=== PATIENT | male | born 1950 | race Caucasian/White ===

== ENCOUNTER 2020-02-08 13:33 | Inpatient (IN) ==
[2020-02-08] MEDS ORDERED: ONDANSETRON INJ 2 MG/ML 2 ML VIAL IV STA (13:58)
--- NOTE | 2020-02-08 14:04 | Emergency Department Note ---
Impression & Plan Pelvic pain, Prostate cancer metastatic to bone, Lower back pain, Acute UTI, Anemia, Pedal edema ED Provider Note NAME: MARTÍNEZ WRIGHT AGE: 69 SEX: M : 1950 ARRIVES VIA: Walk-In INFORMANT: [Patient][family] ED PROVIDER(S): [Angel Edwards MD] CHIEF COMPLAINT: Swelling of the lower extremities HISTORY OF PRESENT ILLNESS: The patient is a 69-year-old male that for 1.5 weeks has had increasing swelling of both feet. He has been up on his feet more lately. The patient denies shortness of breath or cough, there has been no congestion. No chest pain. No fever. He denies recent trauma. The patient does have metastatic prostate cancer. He has chronic back pain from the metastasis although, the pain seems to be worsening.. He is on a fentanyl patch and OxyContin. He is currently complaining of moderate to severe back discomfort and is asking for something for pain. Most of his pain is in the area of the left lower back. Patient denies any fever. He is urinating a lot but he states that this is often the case with his prostate issues. Last night he was up several times to urinate. The patient is concerned about fluid overload or even a blood clot. His radiologic technician told him to come to the ED for any leg swelling. REVIEW OF SYSTEMS: See HPI for pertinent positives and negatives. A total of ten systems were reviewed and were otherwise negative. PMHx/PSHx: See Below SOCIAL HISTORY: See Below. PHYSICAL EXAM: GENERAL: Patient is in no acute distress. Holding his left hand in the area of the left lower back. HEENT: No acute trauma, normocephalic atraumatic, mucous membranes moist, no nasal congestion, no scleral icterus. NECK: No stridor, no adenopathy, no meningismus, trachea is midline. LUNGS: Clear to auscultation bilaterally, no wheeze, no rhonchi, breath sounds equal. HEART: Without murmurs gallops or rubs, regular rate and rhythm. ABDOMEN: Soft, nontender, bowel sounds positive, no hernias, no peritonitis. EXTREMITIES: No cyanosis, mild to moderate bilateral pedal edema, full range of motion of all the joints without pain or difficulty, no signs for acute trauma. NEUROLOGIC: Oriented x 3, no acute motor or sensory deficits, no focal weakness. SKIN: No rash, no jaundice, no diaphoresis. Pale. DIFFERENTIAL DIAGNOSIS: Infection, dehydration, metabolic abnormality, hypo/hyperglycemia, fluid overload, renal failure, hydronephrosis, worsening malignancy, DVT, venous insufficiency, thyroid disorder, electrolyte disturbance, anemia, hypoxia, cardiac sources, as well as other pathologies. EMERGENCY DEPARTMENT COURSE/PROCEDURES: ECG: Indication was weakness. ECG shows a normal sinus rhythm with a rate of 84. There are inverted T waves laterally, no ST elevation, no PVCs. There is a potential old inferior infarct. QTC was 413. No old ECGs on the MUSE system for comparison. Continuous Cardiac Monitoring: An order was placed for continuous cardiac monitoring. The monitor shows a rate of 82 with normal sinus rhythm. MEDICAL DECISION MAKING: There is no leukocytosis. The patient does have an anemia, he has a history of the same although, today's hemoglobin is lower than his recent baseline. There is a normal platelet count. No coagulopathy. No renal failure or significant e lectrolyte abnormality. Alk phos is elevated, likely consistent with his bony metastasis. The remaining liver enzymes were unremarkable. The patient appeared to be in a euthyroid state. ECG shows a sinus rhythm, there were some inverted T waves laterally-no old EKGs available for comparison. Cardiac enzyme testing x1 is not consistent with acute cardiac injury. Urinalysis is consistent with infection. Chest film shows some chronic findings, no CHF or pneumonia. Bilateral lower extremity ultrasound does not show any evidence for DVT. Lumbar spine CT shows worsening of his metastatic disease, no fracture. Abdominal and pelvis CT does not show any urinary obstruction. There were some acute on chronic findings seen consistent with his malignancy. A hematoma in the area of the oblique musculature was suggested. Patient was given IV morphine for pain, IV Zofran for nausea. He was given IV ceftriaxone for the UTI. He received IV saline. The patient is in quite a bit of pain. He has a UTI, he has worsening of his metastatic prostate malignancy. He now has pedal edema and anemia. His urinary infection is complicated. I do think a hospital stay is warranted given the findings and circumstances. I spoke to the patient and his family, I talked with the case packer. The on- call hospitalist was consulted. Past Med/Surg History Medical History Abdominal pain, lower Back pain Bone metastases Cardiac arrhythmia Constipation CVA (cerebral vascular accident) x3--last when pt had a heart attack 06/2019--difficulty walking, slight m raúl issues, no blood thinners Depression Diabetes mellitus, type 2 History of kidney stones Hyperlipidemia Hypertension Myocardial Infarction 06/2019--was taken to [facility] in [place] (had a stroke as well), did not have a heart cath/heart surgery--follows with Dr. Iyer at [facility], no blood thinners Prostate cancer 1999--bone metastases---sx/radiation/chemo Surgical History History of colonoscopy History of prostate biopsy malignant History of tooth extraction History of wisdom tooth extraction Hx of prostatectomy S/P cystourethroscopy with dilation of urethral stricture Family History Mother , age 99 old age Diabetes Father , age 78 prostate ca Prostate cancer Brother , liver cancer No problems noted. Brother No problems noted. Brother No problems noted. Brother No problems noted. Sister No problems noted. Sister No problems noted. Sister No problems noted. Son No problems noted. Daughter No problems noted. 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 Feels Safe at Home: Yes Childhood Exposure to Second-Hand Smoke: No Diet Comment: low carbs for diabetes management caffeine: Yes (2 cups per day) during the past year weight has: decreased > 10 lbs Dental Care, Regularly: Yes Physical Activity Frequency: Does not Exercise Seatbelt Use: always Sunscreen Use: Yes Allergies Allergies Allergy/AdvReac Type Severity Reaction Status Date / Time Penicillins Allergy Mild Rash Verified 02/08/20 14:38 Home Meds Home Medications Medication Instructions Recorded Confirmed amiodarone 100 mg PO QAM 11/07/19 02/08/20 metformin 1,000 mg PO QAM 11/07/19 02/08/20 metformin 500 mg PO QPM 11/07/19 02/08/20 omeprazole 20 mg PO QAM 11/07/19 02/08/20 aspirin 81 mg PO QAM 11/08/19 02/08/20 multivitamin with minerals 1 tab PO QAM 11/08/19 02/08/20 leuprolide (3 month) 22.5 mg (3 22.5 mg IM .q3 mo ea 12/02/19 02/08/20 month) intramuscular syringe kit ondansetron HCl 8 mg tablet 8 mg PO Q8H PRN 01/12/20 02/08/20 dexamethasone 2 mg PO DAILY 02/08/20 02/08/20 fentanyl 1 patch TRANSDERMAL Q72H 02/08/20 02/08/20 oxycodone [OxyContin] 30 mg PO Q12H 02/08/20 02/08/20 Previous Rx's Medication Instructions Recorded docusate sodium [Colace] 100 mg PO BID #14 cap 11/18/19 Results & Data (ED) Vital Signs Vital Signs - 24 hr 02/08/20 13:42 02/08/20 13:58 02/08/20 14:32 Temperature 36.6 C Temperature Source Oral Pulse Rate 82 94 H Pulse Rate from SpO2 Sensor 94 H Respiratory Rate 18 Respiratory Effort / Characteristics Non-Labored Spontaneous Respiratory Depth Normal Respiratory Pattern Regular Blood Pressure 110/64 Blood Pressure Mean 79 Blood Pressure Position Sitting Pulse Oximetry 98 98 98 Oxygen Delivery Method Room Air Room Air Sepsis Recent Fever Within 48 Hours No Sepsis New/Unexplained Change in Mental Status N/A Sepsis Action Taken by Nursing No Action Required 02/08/20 15:00 02/08/20 16:14 02/08/20 16:30 Temperature Temperature Source Pulse Rate 99 H Pulse Rate from SpO2 Sensor 99 H 96 H 107 H Respiratory Rate 24 19 23 Respiratory Effort / Characteristics Respiratory Depth Respiratory Pattern Blood Pressure Blood Pressure Mean Blood Pressure Position Pulse Oximetry 99 96 97 Oxygen Delivery Method Sepsis Recent Fever Within 48 Hours Sepsis New/Unexplained Change in Mental Status Sepsis Action Taken by Nursing 02/08/20 16:52 Temperature Temperature Source Pulse Rate 103 H Pulse Rate from SpO2 Sensor 103 H Respiratory Rate 26 H Respiratory Effort / Characteristics Respiratory Depth Respiratory Pattern Blood Pressure 145/84 H Blood Pressure Mean 104 Blood Pressure Position Pulse Oximetry 97 Oxygen Delivery Method Sepsis Recent Fever Within 48 Hours Sepsis New/Unexplained Change in Mental Status Sepsis Action Taken by Usp Medications Current Medication List: was personally reviewed by me Laboratory Data Attestation: I reviewed the patient's lab results. Result diagrams: 02/08/20 14:18 02/08/20 14:18 Lab Results 02/08/20 02/08/20 02/08/20 Range/Units 14:18 14:18 14:18 WBC 6.93 (4.8-10.8) K/uL RBC 3.51 L (4.7-6.1) M/uL Hgb 10.8 L (14.0-18.0) g/dL Hct 32.6 L (42-52) % MCV 92.9 (80-100) fL MCH 30.8 (25-34) pg MCHC 33.1 (32-36) g/dL RDW Std Deviation 47.0 H (36.4-46.3) fL RDW Coeff of Jesus 14.0 (11.5-14.5) % Plt Count 248 (130-400) K/uL MPV 8.6 (7.4-10.4) fL Immature Gran % (Auto) 0.7 % Neut % (Auto) 77.7 % Lymph % (Auto) 13.7 % [place] % (Auto) 6.3 % Eos % (Auto) 1.2 % Baso % (Auto) 0.4 % Neut # (Auto) 5.38 (1.4-6.5) K/uL Lymph # (Auto) 0.95 L (1.2-3.4) K/uL [place] # (Auto) 0.44 (0.11-0.59) K/uL Eos # (Auto) 0.08 (0-0.5) K/uL Baso # (Auto) 0.03 (0-0.2) K/uL Immature Gran # (Auto) 0.05 H (0.00-0.02) K/uL PT 11.4 (9.0-12.0) Seconds INR 1.1 (0.9-1.1) APTT 25.8 (21.0-31.0) Seconds PTT Ratio 0.9 Sodium 136 (136-145) mmol/L Potassium 4.0 (3.5-5.1) mmol/L Chloride 100 (98-107) mmol/L Carbon Dioxide 30 (21-32) mmol/L Anion Gap 6.0 (3-11) BUN 16 (7-18) mg/dl Creatinine 0.69 (0.6-1.4) mg/dl Est Cr Clr Drug Dosing 80.3 ml/min Est GFR ( Amer) 111.5 Est GFR (Non-Af Amer) 96.2 BUN/Creatinine Ratio 23.2 H (10-20) Glucose 150 H (70-99) mg/dl Calcium 8.6 (8.5-10.1) mg/dl Magnesium 2.2 (1.8-2.4) mg/dl Total Bilirubin 0.4 (0.2-1) mg/dl AST 36 (15-37) U/L ALT 27 (12-78) U/L Alkaline Phosphatase 1008 H (45-117) U/L Troponin I < 0.015 (0-0.045) ng/ml Total Protein 6.6 (6.4-8.2) gm/dl Albumin 2.9 L (3.4-5.0) gm/dl Globulin 3.7 (2.5-4.0) gm/dl Albumin/Globulin Ratio 0.8 L (0.9-2) TSH 3.710 (0.300-4.500) uIu/ml Urine Color Urine Appearance (Clear) Urine pH (4.5-7.5) Ur Specific [place] (1.000-1.030) Urine Protein (Negative) Urine Glucose (UA) (Negative) Urine Ketones (Negative) Urine Blood (Negative) Urine Nitrite (Negative) Urine Bilirubin (Negative) Urine Urobilinogen (Negative) Ur Leukocyte Esterase (Negative) Urine RBC (0-4) /hpf Urine WBC (0-5) /hpf Ur Epithelial Cells (0-5) /lpf Urine Bacteria (Negative) 02/08/20 Range/Units 15:10 WBC (4.8-10.8) K/uL RBC (4.7-6.1) M/uL Hgb (14.0-18.0) g/dL Hct (42-52) % MCV (80-100) fL MCH (25-34) pg MCHC (32-36) g/dL RDW Std Deviation (36.4-46.3) fL RDW Coeff of Jesus (11.5-14.5) % Plt Count (130-400) K/uL MPV (7.4-10.4) fL Immature Gran % (Auto) % Neut % (Auto) % Lymph % (Auto) % [place] % (Auto) % Eos % (Auto) % Baso % (Auto) % Neut # (Auto) (1.4-6.5) K/uL Lymph # (Auto) (1.2-3.4) K/uL [place] # (Auto) (0.11-0.59) K/uL Eos # (Auto) (0-0.5) K/uL Baso # (Auto) (0-0.2) K/uL Immature Gran # (Auto) (0.00-0.02) K/uL PT (9.0-12.0) Seconds INR (0.9-1.1) APTT (21.0-31.0) Seconds PTT Ratio Sodium (136-145) mmol/L Potassium (3.5-5.1) mmol/L Chloride (98-107) mmol/L Carbon Dioxide (21-32) mmol/L Anion Gap (3-11) BUN (7-18) mg/dl Creatinine (0.6-1.4) mg/dl Est Cr Clr Drug Dosing ml/min Est GFR ( Amer) Est GFR (Non-Af Amer) BUN/Creatinine Ratio (10-20) Glucose (70-99) mg/dl Calcium (8.5-10.1) mg/dl Magnesium (1.8-2.4) mg/dl Total Bilirubin (0.2-1) mg/dl AST (15-37) U/L ALT (12-78) U/L Alkaline Phosphatase (45-117) U/L Troponin I (0-0.045) ng/ml Total Protein (6.4-8.2) gm/dl Albumin (3.4-5.0) gm/dl Globulin (2.5-4.0) gm/dl Albumin/Globulin Ratio (0.9-2) TSH (0.300-4.500) uIu/ml Urine Color Yellow Urine Appearance Clear (Clear) Urine pH 6.0 (4.5-7.5) Ur Specific [place] 1.010 (1.000-1.030) Urine Protein Negative (Negative) Urine Glucose (UA) Negative (Negative) Urine Ketones Negative (Negative) Urine Blood Negative (Negative) Urine Nitrite Positive A (Negative) Urine Bilirubin Negative (Negative) Urine Urobilinogen Negative (Negative) Ur Leukocyte Esterase 2+ H (Negative) Urine RBC 0-4 (0-4) /hpf Urine WBC >30 H (0-5) /hpf Ur Epithelial Cells 5-10 H (0-5) /lpf Urine Bacteria 3+ H (Negative) Administered Medications Morphine Sulfate (Morphine Sulfate 4 Mg/Ml 1 Ml Carp\Vial) 4 mg IV Q20M PRN PRN Reason: Pain Stop: 02/22/20 13:57 Last Admin: 02/08/20 16:12 Dose: 4 mg Documented by: [id number] Admin: 02/08/20 14:14 Dose: 4 mg Documented by: [id number] Discontinued Medications Ceftriaxone Sodium (Rocephin) 1,000 mg in 50 mls @ 100 mls/hr IV NOW STA Stop: 02/08/20 16:12 Last Infusion: 02/08/20 16:41 Dose: 0 mls/hr Documented by: [id number] Admin: 02/08/20 16:12 Dose: 100 mls/hr Documented by: [id number] Ondansetron HCl (Ondansetron Inj 2 Mg/Ml 2 Ml Vial) 4 mg IV NOW STA Stop: 02/08/20 13:59 Last Admin: 02/08/20 14:14 Dose: 4 mg Documented by: [id number] Imaging Data Radiologist's Impression: BILATERAL LOWER EXTREMITY VENOUS DOPPLER HISTORY: Acute pain and swelling of the bilateral lower extremities swelling COMPARISON STUDY: None. FINDINGS: There is normal compressibility, flow, and augmentation within the bilateral lower extremity deep venous systems. Lower extremity arterial calcifications incidentally noted. IMPRESSION: No DVT within the right or left lower extremity. XR chest 1V portable HISTORY: 69 years-old Male weakness acute weakness COMPARISON: CT abdomen pelvis 11/18/2019 TECHNIQUE: Portable AP view of the chest FINDINGS: Cardiomediastinal and hilar silhouettes are within normal limits. There is no pneumothorax, pleural effusion, airspace consolidation or overt pulmonary edema. Degenerative changes of the shoulders and spine. Scattered sclerotic bone lesions are redemonstrated. IMPRESSION: 1. No acute process of the chest. 2. Sclerotic osseous metastasis redemonstrated. CT lumbar spine wo con HISTORY: 69 years-old Male poss khalif mets acute low back pain with metastatic prostate cancer COMPARISON: CT abdomen and pelvis of same day, CT lumbar spine 11/07/2019 TECHNIQUE: Multiple axial CT images of the lumbar spine were obtained without the use of IV contrast. A dose lowering technique was used consistent with the principals of ALARA. FINDINGS: Extensive sclerotic osseous metastasis redemonstrated which has progressed from the comparison exam. There is diffuse irregular periostitis. No acute pathologic fracture identified. Evaluation of the central canal and neuroforamina is limited by CT technique. No high-grade central canal stenosis. Posterior annular disc bulge L5-S1 results in at least mild left foraminal narrowing. Mild lumbar levoscoliosis. No acute process of the imaged intra-abdominal structures. Multifocal right-sided neuroforaminal narrowing of the sacrum redemonstrated secondary to expansile metastasis. Schmorl's node along the inferior endplate of L1 is unchanged. IMPRESSION: 1. Extensive osteoblastic metastatic disease, progressed from 11/18/2019. 2. No acute pathologic fracture. 3. Multifocal right-sided neuroforaminal narrowing of the sacrum redemonstrated secondary to expansile metastasis. ABDOMEN AND PELVIS CT WITHOUT CONTRAST CT DOSE: 275.74 mGy.cm HISTORY: Acute severe low back pain edema, poss urinary obstruction TECHNIQUE: Multiaxial CT images of the abdomen and pelvis were performed without contrast. A dose lowering technique was utilized adhering to the principles of ALARA. COMPARISON STUDY: CT lumbar spine of same day, CT abdomen and pelvis 11/18/2019 FINDINGS: Clear lung bases. No pneumatosis or pneumoperitoneum. Imaged inferior cardiac chambers are unremarkable. Limited evaluation of the solid abdominal organs without the use of IV contrast. Within the limitations of the exam, the spleen, pancreas, and adrenal glands appear unremarkable. There is an indeterminate 8 mm hypodense lesion of the left hepatic lobe on image 17 series 2. This was not definitively seen on comparison. Distended gallbladder with sludge/probable cholelithiasis. This appears similar to comparison. Nonspecific bilateral perinephric stranding. Prostamegaly. Surgically absent prostate. No ureteral calculi or obstructive uropathy. Calcified plaque the abdominal aorta without aneurysm. There are a few scattered prominent retroperitoneal lymph nodes measuring up to 9 mm. Small hiatal hernia. No bowel obstruction. Moderate fecal retention. Appendix not visualized. Moderate generalized body wall edema. There is asymmetric enlargement with thickening of the left internal oblique muscle measuring up to 9.6 x 1.1 cm. The left external oblique muscle also appears mildly enlarged with surrounding edema. This has progressed from the 11/18/2019 exam. Extensive osteoblastic passes redemonstrated, progressively worsened from comparison. No acute pathologic fracture identified. IMPRESSION: 1. Asymmetric enlargement and heterogeneity of the left internal and external oblique muscles with possible intramuscular hematoma. Correlate with clinical exam findings. 2. Extensive osteoblastic metastatic disease redemonstrated which appears to have progressed from 11/18/2019. No acute pathologic fracture identified. 3. Moderate fecal retention. 4. No bowel obstruction or bowel wall thickening. 5. Distended gallbladder with cholelithiasis. 6. Indeterminate 8 mm hypodense focus of the left hepatic lobe which appears to be new from comparison. Attention at follow-up recommended to exclude hepatic metastasis. 7. Additional findings as above. Blood Pressure Blood Pressure Findings: Elevated blood pressure Blood Pressure Disposition: further management by hospitalist Discharge Plan Visit Data Chief Complaint: Swelling/Edema to Extremity Stated Complaint: LEGS SWELLING ED Provider: Angel Edwards Discharge Problem: Pelvic pain, Prostate cancer metastatic to bone, Lower back pain, Acute UTI, Anemia, Pedal edema Patient Disposition: Admitted As Inpatient Condition: Fair Forms Stand Alone Forms: [facility] [employer] Prescriptions Prescriptions: No Action Lupron [place] (3 month) 22.5 mg syringe kit 22.5 mg IM .q3 mo RF: 0 ondansetron HCl [Zofran] 8 mg tablet 8 mg PO Q8H PRN (Reason: Nausea And Vomiting) RF: 0 docusate sodium [Colace] 100 mg capsule 100 mg PO BID Qty: 14 RF: 0 metformin 500 mg tablet 500 mg PO QPM RF: 0 metformin 500 mg tablet 1,000 mg PO QAM RF: 0 amiodarone 200 mg tablet 100 mg PO QAM RF: 0 omeprazole 20 mg capsule,delayed release(DR/EC) 20 mg PO QAM RF: 0 aspirin 81 mg Tablet,Delayed Release (Dr/Ec) 81 mg PO QAM RF: 0 multivitamin with minerals Tablet 1 tab PO QAM RF: 0 dexamethasone 2 mg Tablet 2 mg PO DAILY RF: 0 fentanyl 75 mcg/hr patch 72 hour 1 patch transdermal Q72H RF: 0 oxycodone [OxyContin] 30 mg Tablet,Oral Only,Ext.Rel.12 Hr 30 mg PO Q12H RF: 0 Referrals Referrals: Roseanne Morris MD [Primary Care Provider] - Discharge Problem: Lower back pain Qualifiers: Chronicity: acute Back pain laterality: left Sciatica presence: without sciatica Qualified Code(s): M54.5 - Low back pain Anemia Qualifiers: Anemia type: unspecified type Qualified Code(s): D64.9 - Anemia, unspecified
[2020-02-08] MEDS: MoRPHine SULFATE 4 MG/ML 1 ML CARP\\VIAL IV PRN ×2 (14:14→16:12)
[2020-02-08 14:31] LABS: Basophils # (auto) 0.03 K/uL (0-0.2); Basophils % (auto) 0.4 %; Eosinophils # (auto) 0.08 K/uL (0-0.5); Eosinophils % (auto) 1.2 %; Hematocrit (blood only) 32.6 % (42-52); Hemoglobin 10.8 g/dL (14.0-18.0); Immature Granulocytes # (auto) 0.05 K/uL (0.00-0.02); Immature Granulocytes % (auto) 0.7 %; Lymphocytes # (auto) 0.95 K/uL (1.2-3.4); Lymphocytes % (auto) 13.7 %; Mean Corpuscular Hemoglobin 30.8 pg (25-34); Mean Corpuscular Hgb Conc 33.1 g/dL (32-36); Mean Corpuscular Volume 92.9 fL (80-100); Mean Platelet Volume 8.6 fL (7.4-10.4); Monocytes # (auto) 0.44 K/uL (0.11-0.59); Monocytes % (auto) 6.3 %; Neutrophils # (auto) 5.38 K/uL (1.4-6.5); Neutrophils % (auto) 77.7 %; Platelet Count 248 K/uL (130-400); Red Blood Count 3.51 M/uL (4.7-6.1); White Blood Count 6.93 K/uL (4.8-10.8)
[2020-02-08 14:41] LABS: INR 1.1 (0.9-1.1); Partial Thromboplastin Ratio 0.9; Partial Thromboplastin Time 25.8 Seconds (21.0-31.0); Prothrombin Time 11.4 Seconds (9.0-12.0)
[2020-02-08 14:48] LABS: Alanine Aminotransferase 27 U/L (12-78); Albumin Level 2.9 gm/dl (3.4-5.0); Aspartate Aminotransferase 36 U/L (15-37); BUN Creatinine Ratio 23.2 (10-20); Blood Urea Nitrogen 16 mg/dl (7-18); Calcium 8.6 mg/dl (8.5-10.1); Carbon Dioxide 30 mmol/L (21-32); Chloride 100 mmol/L (98-107); Creatinine Clr Calc Pharmacy 80.3 ml/min; Est GFR (African American) 111.5; Est GFR (Non-African American) 96.2; Glucose 150 mg/dl (70-99); Magnesium 2.2 mg/dl (1.8-2.4); Sodium 136 mmol/L (136-145)
[2020-02-08 15:02] LABS: Albumin Globulin Ratio 0.8 (0.9-2); Alkaline Phosphatase 1008 U/L (45-117); Bilirubin,Total 0.4 mg/dl (0.2-1); Globulin 3.7 gm/dl (2.5-4.0); Total Protein 6.6 gm/dl (6.4-8.2); Troponin I < 0.015 ng/ml (0-0.045)
[2020-02-08 15:33] LABS: Appearance Urine Clear (Clear); Bilirubin Urine Negative (Negative); Blood Urine Negative (Negative); Color Urine Yellow; Glucose Urine UA Negative (Negative); Ketones Urine Negative (Negative); Leukocyte Esterase Urine 2+ (Negative); Nitrite Urine Positive (Negative); Protein Urine Negative (Negative); Urobilinogen Urine Negative (Negative)
[2020-02-08 15:41] LABS: Bacteria Urine 3+ (Negative); RBC Urine 0-4 /hpf (0-4); WBC Urine >30 /hpf (0-5)
[2020-02-08] MEDS ORDERED: cefTRIAXone SODIUM 1,000 MG/50 ML BAG IV STA (15:43)
--- NOTE | 2020-02-08 15:52 | Ultrasound Report ---
BILATERAL LOWER EXTREMITY VENOUS DOPPLER HISTORY: Acute pain and swelling of the bilateral lower extremities swelling COMPARISON STUDY: None. FINDINGS: There is normal compressibility, flow, and augmentation within the bilateral lower extremit y deep venous systems. Lower extremity arterial calcifications incidentally noted. IMPRESSION: No DVT within the right or left lower extremity. ACT 112: Negative or not required by law. Electronically signed by: Dillon Monteiro M.D. 02/08/2020 3:50 PM
--- NOTE | 2020-02-08 16:24 | XRay Report ---
XR chest 1V portable HISTORY: 69 years-old Male weakness acute weakness COMPARISON: CT abdomen pelvis 11/18/2019 TECHNIQUE: Portable AP view of the chest FINDINGS: Cardiomediastinal and hilar silhouettes are within normal limits. There is no pneumothorax, pleural e ffusion, airspace consolidation or overt pulmonary edema. Degenerative changes of the shoulders and s pine. Scattered sclerotic bone lesions are redemonstrated. IMPRESSION: 1. No acute process of the chest. 2. Sclerotic osseous metastasis redemonstrated. ACT 112: Negative or not required by law. The above report was generated using voice recognition software. It may contain grammatical, syntax o r spelling errors. Electronically signed by: Dillon Monteiro M.D. 02/08/2020 4:22 PM
--- NOTE | 2020-02-08 17:18 | CT Scan Report ---
CT lumbar spine wo con HISTORY: 69 years-old Male poss khalif mets acute low back pain with metastatic prostate cancer COMPARISON: CT abdomen and pelvis of same day, CT lumbar spine 11/07/2019 TECHNIQUE: Multiple axial CT images of the lumbar spine were obtained without the use of IV contrast. A dose lowering technique was used consistent with the principals of JACK. FINDINGS: Extensive sclerotic osseous metastasis redemonstrated which has progressed from the comparison exam. There is diffuse irregular periostitis. No acute pathologic fracture identified. Evaluation of the ce ntral canal and neuroforamina is limited by CT technique. No high-grade central canal stenosis. Poste rior annular disc bulge L5-S1 results in at least mild left foraminal narrowing. Mild lumbar levoscol iosis. No acute process of the imaged intra-abdominal structures. Multifocal right-sided neuroforaminal narrowing of the sacrum redemonstrated secondary to expansile m etastasis. Schmorl's node along the inferior endplate of L1 is unchanged. IMPRESSION: 1. Extensive osteoblastic metastatic disease, progressed from 11/18/2019. 2. No acute pathologic fracture. 3. Multifocal right-sided neuroforaminal narrowing of the sacrum redemonstrated secondary to expansil e metastasis. ACT 112: Negative or not required by law. The above report was generated using voice recognition software. It may contain grammatical, syntax o r spelling errors. Electronically signed by: Dillon Monteiro M.D. 02/08/2020 5:17 PM
--- NOTE | 2020-02-08 17:30 | CT Scan Report ---
ABDOMEN AND PELVIS CT WITHOUT CONTRAST CT DOSE: 275.74 mGy.cm HISTORY: Acute severe low back pain edema, poss urinary obstruction TECHNIQUE: Multiaxial CT images of the abdomen and pelvis were performed without contrast. A dose lo wering technique was utilized adhering to the principles of ALARA. COMPARISON STUDY: CT lumbar spine of same day, CT abdomen and pelvis 11/18/2019 FINDINGS: Clear lung bases. No pneumatosis or pneumoperitoneum. Imaged inferior cardiac chambers are unremarkab le. Limited evaluation of the solid abdominal organs without the use of IV contrast. Within the limit ations of the exam, the spleen, pancreas, and adrenal glands appear unremarkable. There is an indeter minate 8 mm hypodense lesion of the left hepatic lobe on image 17 series 2. This was not definitively seen on comparison. Distended gallbladder with sludge/probable cholelithiasis. This appears similar to comparison. Nonspecific bilateral perinephric stranding. Prostamegaly. Surgically absent prostate. No ureteral ca lculi or obstructive uropathy. Calcified plaque the abdominal aorta without aneurysm. There are a few scattered prominent retroperitoneal lymph nodes measuring up to 9 mm. Small hiatal hernia. No bowel obstruction. Moderate fecal retention. Appendix not visualized. Moderat e generalized body wall edema. There is asymmetric enlargement with thickening of the left internal o blique muscle measuring up to 9.6 x 1.1 cm. The left external oblique muscle also appears mildly enla rged with surrounding edema. This has progressed from the 11/18/2019 exam. Extensive osteoblastic pass es redemonstrated, progressively worsened from comparison. No acute pathologic fracture identified. IMPRESSION: 1. Asymmetric enlargement and heterogeneity of the left internal and external oblique muscles with po ssible intramuscular hematoma. Correlate with clinical exam findings. 2. Extensive osteoblastic metastatic disease redemonstrated which appears to have progressed from 10/24. No acute pathologic fracture identified. 3. Moderate fecal retention. 4. No bowel obstruction or bowel wall thickening. 5. Distended gallbladder with cholelithiasis. 6. Indeterminate 8 mm hypodense focus of the left hepatic lobe which appears to be new from compariso n. Attention at follow-up recommended to exclude hepatic metastasis. 7. Additional findings as above. ACT 112: Negative or not required by law. The above report was generated using voice recognition software. It may contain grammatical, syntax o r spelling errors. Electronically signed by: Dillon Monteiro M.D. 02/08/2020 5:29 PM
[2020-02-08] MEDS ORDERED: SODIUM CHLORIDE 0.9% 1000ML 500 ML IV ONE (17:51)
--- NOTE | 2020-02-08 18:39 | History & Physical Report ---
Date of Service February 08, 2020 Assessment & Plan (1) Bilateral swelling of feet: May be a combination of current diet (low PO intake) and weight loss as well as medications such as the steroids he takes daily. No evidence of further edema of the leg, no SOB, exercise intolerance, exam and symptoms are not consistent with heart failure. Put him on a salt restricted diet. Added VAHID hose. Will defer to primary provider to see how this is clinically in am and consider any medication switches for the patient. Dopper US was negative for clot in both legs. (2) Prostate cancer metastatic to bone: Increased tumor burden seen on imaging of the abdomen and lumbar spine. Alk phos is up from prior. Pain has been difficult to control but he feels good with current Oxycontin q12h, oxy 5mg IR for breakthrough, and Fentanyl 75 q72h which was just put back on a couple of days ago. Will add some scheduled Tylenol at this time. He sees Dr. Rao as outpatient for pain management. Will consult her for assistance with adjustments to pain medication regimen. (3) Acute UTI: Empiric Rocephin pending clinical improvement and culture results. Afebrile without CVA tenderness. (4) Cancer related pain: Plan as above. (5) Abdominal pain, lower: Possible etiologies include but are not limited to UTI, possible hematoma in the oblique musculature, or cancer-related pain. Abx, monitor CBC in am. Patient was not tender to palpation on exam this evening. 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 He was placed on amio and this was reduced to 100mg PO QAM per Dr. Martinez who is his cellophane worker. Cont to monitor telemetry overnight. (7) Anemia: A slight drop in his H/H seen today. Recent Cologard test was positive for occult blood. Would pursue outpatient coloscopy based on PCP recommendations. Other causes may include but are not limited to cancer progression and disruption of the bone marrow, acute blood loss with the possible intramusculature hematoma of his internal obliques. He is on ASA because of CAD and h/o stroke. H/H in am. (8) CVA (cerebral vascular accident): Continue medical management including ASA, statin. No deficits. Thought to be from an embolic source. (9) Ischemic cardiomyopathy: Cont medical management including Lipitor 80 HS, ASA 81mg daily, Lasix qOD, and good diabetes control. Lateral ST depressions on EKG today. He denies any chest pain, dyspnea on exertion, PND, orthopnea, etc. Trop is negative. Will trend these overnight and consult Cardiology to ensure no further workup is needed prior to discharge. (10) Weight loss: related to cancer, Rn Patient Care consult for additional recommendations. (11) Diabetes mellitus, type 2: Controlled on metformin. Hold this and go with insulin basal and bolus while admitted. (12) DVT prophylaxis: SCDs while anemia and possible blood loss causing hematoma. Would consider chemoprohylaxis if H/H is stable and the intermittent abdominal johnson persists. Full Code--I didn't discus this with the patient on admission because he told me immediately he just wanted to go home. Will need to confirm this with him in am. Jasmin Davis DO [facility] History of Present Illness Chief Complaint: swollen legs Primary Care Provider: Roseanne Morris MD 69 yo man with feet swelling over the past two weeks. He has a h/o systolic heart failure 2/2 ischemic cardiomyopathy after a STEMI in early 2019. Per john fisher he was given a warning to always watch for any leg swelling and let someone know. He denies any pain in the legs and DVT was ruled out today with venous doppler. No edema in foot or legs. He also has metastatic prostate cancer to the bones and recently finished a course of XRT 3 weeks ago. He reports this did help some of his pain. He sees Dr Rao now and was given long and IR oxycodone to help his bone pain. She requested that he stop the fentanyl patch, however, family put this back on in the last few days and his pain has improved. Some increased stool burden present on imaging likely narcotic related. He admits to lateral abdominal pain for which he has devised a home remedy including a padded belt which adds pressure to certain points. He has a possible internal oblique hematoma where this belt hits, and this with aspirin may have caused this with the result of a lower H/H. He reports improving his oral intake of food and LOVES ice cream. He has otherwise been doing well. Son was at bedside and all questions answered to his and dad's satisfaction. I initially recommended follow-up with PCP, Dr. Moreno and Dr. Michelle jaime he didn't want to be admitted, however, this shouldn't be necessary as he decided he was ok with admission after all. Allergies Allergy/AdvReac Type Severity Reaction Status Date / Time Penicillins Allergy Mild Rash Verified 02/08/20 14:38 Home Medications Home Medications Medication Instructions Recorded Confirmed Type amiodarone 100 mg PO QAM 11/07/19 02/08/20 History metformin 1,000 mg PO QAM 11/07/19 02/08/20 History metformin 500 mg PO QPM 11/07/19 02/08/20 History omeprazole 20 mg PO QAM 11/07/19 02/08/20 History aspirin 81 mg PO QAM 11/08/19 02/08/20 History multivitamin with minerals 1 tab PO QAM 11/08/19 02/08/20 History docusate sodium [Colace] 100 mg PO BID #14 cap 11/18/19 02/08/20 Rx leuprolide (3 month) 22.5 mg (3 22.5 mg IM .q3 mo ea 12/02/19 02/08/20 History month) intramuscular syringe kit ondansetron HCl 8 mg tablet 8 mg PO Q8H PRN 01/12/20 02/08/20 History dexamethasone 2 mg PO DAILY 02/08/20 02/08/20 History fentanyl 1 patch TRANSDERMAL Q72H 02/08/20 02/08/20 History furosemide 20 mg PO Q2D 02/08/20 02/08/20 History oxycodone 5 mg PO Q8H PRN 02/08/20 02/08/20 History oxycodone [OxyContin] 30 mg PO Q12H 02/08/20 02/08/20 History Past Med/Surg History Medical History Abdominal pain, lower Back pain Bone metastases Cardiac arrhythmia Constipation CVA (cerebral vascular accident) x3--last when pt had a heart attack 06/2019--difficulty walking, slight memory issues, no blood thinners Depression Diabetes mellitus, type 2 History of kidney stones Hyperlipidemia Hypertension Myocardial Infarction 06/2019--was taken to [facility] in [place] (had a stroke as well), did not have a heart cath/heart surgery--follow[facility] with Dr. Iyer [facility], no blood thinners Prostate cancer 1999--bone metastases---sx/radiation/chemo Surgical History History of colonoscopy History of prostate biopsy malignant History of tooth extraction History of wisdom tooth extraction Hx of prostatectomy S/P cystourethroscopy with dilation of urethral stricture Family History Mother , age 99 old age Diabetes Father , age 78 prostate ca Prostate cancer Brother , liver cancer No problems noted. Brother No problems noted. Brother No problems noted. Brother No problems noted. Sister No problems noted. Sister No problems noted. Sister No problems noted. Son No problems noted. Daughter No problems noted. 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 Feels Safe at Home: Yes Childhood Exposure to Second-Hand Smoke: No Diet Comment: low carbs for diabetes management caffeine: Yes (2 cups per day) during the past year weight has: decreased > 10 lbs Dental Care, Regularly: Yes Physical Activity Frequency: Does not Exercise Seatbelt Use: always Sunscreen Use: Yes Review of Systems Review of Systems: All systems reviewed & are unremarkable except as noted in Subjective Physical Exam Physical Exam: CONSTITUTIONAL: thin, vitals as above, generally well- appearing EYES: pupils are equal and round bilaterally, normal conjunctivae, no scleral icterus ENT: external ear and nose normal, oropharynx clear, MMM RESPIRATORY: clear to auscultation bilaterally, no crackles, rales or wheezes, normal respiratory effort CARDIOVASCULAR: regular rate and rhythm, S1 and 2 heard without murmurs, gallops or rubs, no JVD, no peripheral edema GASTROINTESTINAL: soft, nontender, ND, no guarding, no fluid wave or ascites present. MUSCULOSKELETAL: strength 5/5 throughout, head is normocephalic and atraumatic, neck supple, normal palpation of chest wall without tenderness SKIN: warm and dry, some mild brusing seen on his upper extremities. NEUROLOGIC: No facial palsy, no dysarthria. CN 2-12 grossly intact, no sensory deficit, normal cognition, normal speech, no tremor, no gross focal deficits. PSYCHIATRIC: alert cooperative and oriented to person, place and time. Euthymic mood, makes good eye contact, language grossly intact, recent and remote memory grossly intact. Results & Data Results & Data ([facility]) Vital Signs (Past 12 Hours) Vital Signs Temp Pulse Resp BP Pulse Ox 02/08/20 18:30 98 02/08/20 18:00 107 H 20 98 02/08/20 17:31 105 H 20 97 02/08/20 17:30 105 H 14 133/82 97 02/08/20 17:12 104 H 18 138/78 97 02/08/20 17:01 101 H 22 97 02/08/20 17:00 101 H 21 138/78 93 02/08/20 16:53 104 H 18 98 02/08/20 16:52 103 H 26 H 145/84 H 97 02/08/20 16:30 23 97 02/08/20 16:14 19 96 02/08/20 15:00 99 H 24 99 02/08/20 14:32 94 H 98 02/08/20 13:58 98 02/08/20 13:42 36.6 C 82 18 110/64 98 Laboratory Results Short CBC 02/08/20 Range/Units 14:18 WBC 6.93 (4.8-10.8) K/uL Hgb 10.8 L (14.0-18.0) g/dL Hct 32.6 L (42-52) % Plt Count 248 (130-400) K/uL BMP 02/08/20 14:18 Sodium 136 Potassium 4.0 Chloride 100 Carbon Dioxide 30 BUN 16 Creatinine 0.69 Glucose 150 H Calcium 8.6 Cardiac Enzymes 02/08/20 Range/Units 14:18 Troponin I < 0.015 (0-0.045) ng/ml Liver Function 02/08/20 Range/Units 14:18 Total Bilirubin 0.4 (0.2-1) mg/dl AST 36 (15-37) U/L ALT 27 (12-78) U/L Alkaline Phosphatase 1008 H (45-117) U/L Albumin 2.9 L (3.4-5.0) gm/dl Urine 02/08/20 Range/Units 15:10 Urine Color Yellow Urine Appearance Clear (Clear) Urine pH 6.0 (4.5-7.5) Ur Specific [place] 1.010 (1.000-1.030) Urine Protein Negative (Negative) Urine Glucose (UA) Negative (Negative) Diagnostic Findings CT lumbar spine wo con HISTORY: 69 years-old Male poss khalif mets acute low back pain with metastatic prostate cancer COMPARISON: CT abdomen and pelvis of same day, CT lumbar spine 11/07/2019 FINDINGS: Extensive sclerotic osseous metastasis redemonstrated which has progressed from the comparison exam. There is diffuse irregular periostitis. No acute pathologic fracture identified. Evaluation of the central canal and neuroforamina is limited by CT technique. No high-grade central canal stenosis. Posterior annular disc bulge L5-S1 results in at least mild left foraminal narrowing. Mild lumbar levoscoliosis. No acute process of the imaged intra-abdominal structures. Multifocal right-sided neuroforaminal narrowing of the sacrum redemonstrated secondary to expansile metastasis. Schmorl's node along the inferior endplate of L1 is unchanged. IMPRESSION: 1. Extensive osteoblastic metastatic disease, progressed from 11/18/2019. 2. No acute pathologic fracture. 3. Multifocal right-sided neuroforaminal narrowing of the sacrum redemonstrated secondary to expansile metastasis. ABDOMEN AND PELVIS CT WITHOUT CONTRAST CT DOSE: 275.74 mGy.cm HISTORY: Acute severe low back pain edema, poss urinary obstruction TECHNIQUE: Multiaxial CT images of the abdomen and pelvis were performed without contrast. A dose lowering technique was utilized adhering to the principles of ALARA. COMPARISON STUDY: CT lumbar spine of same day, CT abdomen and pelvis 11/18/2019 FINDINGS: Clear lung bases. No pneumatosis or pneumoperitoneum. Imaged inferior cardiac chambers are unremarkable. Limited evaluation of the solid abdominal organs without the use of IV contrast. Within the limitations of the exam, the spleen, pancreas, and adrenal glands appear unremarkable. There is an indeterminate 8 mm hypodense lesion of the left hepatic lobe on image 17 series 2. This was not definitively seen on comparison. Distended gallbladder with sludge/probable cho lelithiasis. This appears similar to comparison. Nonspecific bilateral perinephric stranding. Prostamegaly. Surgically absent prostate. No ureteral calculi or obstructive uropathy. Calcified plaque the abdominal aorta without aneurysm. There are a few scattered prominent retroperitoneal lymph nodes measuring up to 9 mm. Small hiatal hernia. No bowel obstruction. Moderate fecal retention. Appendix not visualized. Moderate generalized body wall edema. There is asymmetric enlargement with thickening of the left internal oblique muscle measuring up to 9.6 x 1.1 cm. The left external oblique muscle also appears mildly enlarged with surrounding edema. This has progressed from the 11/18/2019 exam. Extensive osteoblastic passes redemonstrated, progressively worsened from comparison. No acute pathologic fracture identified. IMPRESSION: 1. Asymmetric enlargement and heterogeneity of the left internal and external oblique muscles with possible intramuscular hematoma. Correlate with clinical ex am findings. 2. Extensive osteoblastic metastatic disease redemonstrated which appears to have progressed from 11/18/2019. No acute pathologic fracture identified. 3. Moderate fecal retention. 4. No bowel obstruction or bowel wall thickening. 5. Distended gallbladder with cholelithiasis. 6. Indeterminate 8 mm hypodense focus of the left hepatic lobe which appears to be new from comparison. Attention at follow-up recommended to exclude hepatic metastasis. 7. Additional findings as above. --- BILATERAL LOWER EXTREMITY VENOUS DOPPLER HISTORY: Acute pain and swelling of the bilateral lower extremities swelling COMPARISON STUDY: None. FINDINGS: There is normal compressibility, flow, and augmentation within the b ilateral lower extremity deep venous systems. Lower extremity arterial calcifications incidentally noted. IMPRESSION: No DVT within the right or left lower extremity. XR chest 1V portable HISTORY: 69 years-old Male weakness acute weakness COMPARISON: CT abdomen pelvis 11/18/2019 TECHNIQUE: Portable AP view of the chest FINDINGS: Cardiomediastinal and hilar silhouettes are within normal limits. There is no pneumothorax, pleural effusion, airspace consolidation or overt pulmonary edema. Degenerative changes of the shoulders and spine. Scattered sclerotic bone lesions are redemonstrated. IMPRESSION: 1. No acute process of the chest. 2. Sclerotic osseous metastasis redemonstrated. Code Status & VTE Plan VTE Prophylaxis Plan VTE Prophylaxis will be ordered: Yes Reason for no VTE drug order: Contraindicated (1) Anemia Anemia type: unspecified type Qualified Code(s): D64.9 - Anemia, unspecified
[2020-02-08] MEDS ORDERED: GLUCOSE 40% GEL 15 GM TUBE PO PRN (20:03)
[2020-02-08] MEDS ORDERED: GLUCOSE 10 TABS/TUBE PO PRN (20:03)
[2020-02-08] MEDS ORDERED: CARBOHYDRATES FOR HYPOGLYCEMIA PO PRN (20:03)
[2020-02-08] MEDS ORDERED: GLUCAGON FOR INJ 1 MG VIAL SQ PRN (20:03)
[2020-02-08] MEDS ORDERED: DEXTROSE 50% 50 ML SYRINGE IV PRN (20:03)
[2020-02-08] MEDS ORDERED: ONDANSETRON 4 MG OD TAB PO PRN (20:32)
[2020-02-08] MEDS ORDERED: ACETAMINOPHEN 325 MG TAB PO PRN (20:43)
[2020-02-08] MEDS ORDERED: ONDANSETRON INJ 2 MG/ML 2 ML VIAL IV PRN (20:43)
[2020-02-08] MEDS ORDERED: INSULIN GLARGINE SOLOSTAR 100 UNITS/ML 3 ML PEN SC SCH (21:00)
[2020-02-08] MEDS ORDERED: INSULIN ASPART 100 UNITS/ML 3 ML PEN SC SCH (21:00)
[2020-02-08] MEDS ORDERED: LANTUS PER UNIT CHARGE SQ SCH (21:00)
[2020-02-08] MEDS ORDERED: GLYCERIN ADULT 12 SUPP/BOX SUPP PR PRN (21:04)
[2020-02-08] MEDS ORDERED: POLYETHYLENE (MIRALAX) 17 GM PACK PO PRN (21:04)
[2020-02-08] MEDS ORDERED: HYDROmorphone INJ 0.5 MG/0.5 ML SYR IV PRN (21:04)
[2020-02-08] MEDS: ACETAMINOPHEN 325 MG TAB PO SCH (21:47)
[2020-02-08] MEDS: DOCUSATE SODIUM 100 MG CAP PO SCH (21:48)
[2020-02-08] MEDS: OXYCODONE HCL 15 MG TABCR (OXYCONTIN) PO SCH (22:01)
[2020-02-09] MEDS: CHECK FENTANYL PATCH PLACEMENT SCH ×4 (00:02→23:41)
--- NOTE | 2020-02-09 00:03 | Electrocardiogram Report ---
Test Reason : Blood Pressure : / mmHG Vent. Rate : 084 BPM Atrial Rate : 084 BPM P-R Int : 174 ms QRS Dur : 086 ms QT Int : 350 ms P-R-T Axes : 067 -30 058 degrees QTc Int : 413 ms Poor data quality, interpretation may be adversely affected Normal sinus rhythm Possible Left atrial enlargement Left axis deviation Inferior infarct , age undetermined Abnormal ECG No previous ECGs available Confirmed by Lele Gonzalez ([id number]) on 02/09/2020 12:03:28 AM Referred By: REFERRED SELF Confirmed By:Lele Gonzalez
--- NOTE | 2020-02-09 00:04 | Electrocardiogram Report ---
Test Reason : Blood Pressure : / mmHG Vent. Rate : 085 BPM Atrial Rate : 085 BPM P-R Int : 174 ms QRS Dur : 090 ms QT Int : 360 ms P-R-T Axes : 070 -28 091 degrees QTc Int : 428 ms Normal sinus rhythm Possible Left atrial enlargement Inferior infarct (cited on or before 08-FEB-2020) Abnormal ECG When compared with ECG of 08-FEB-2020 14:05, No significant change was found Confirmed by Lele Gonzalez ([id number] on 02/09/2020 12:03:43 AM Referred By: REFERRED SELF Confirmed By:Lele Gonzalez
[2020-02-09] MEDS ORDERED: ALBUMIN 25% 50 ML IV ONE (04:57)
[2020-02-09 05:44] LABS: Basophils # (auto) 0.02 K/uL (0-0.2); Basophils % (auto) 0.4 %; Eosinophils # (auto) 0.05 K/uL (0-0.5); Eosinophils % (auto) 1.1 %; Hematocrit (blood only) 29.5 % (42-52); Hemoglobin 9.7 g/dL (14.0-18.0); Immature Granulocytes # (auto) 0.01 K/uL (0.00-0.02); Immature Granulocytes % (auto) 0.2 %; Lymphocytes # (auto) 0.49 K/uL (1.2-3.4); Lymphocytes % (auto) 10.4 %; Mean Corpuscular Hemoglobin 30.6 pg (25-34); Mean Corpuscular Hgb Conc 32.9 g/dL (32-36); Mean Corpuscular Volume 93.1 fL (80-100); Mean Platelet Volume 8.2 fL (7.4-10.4); Monocytes # (auto) 0.66 K/uL (0.11-0.59); Monocytes % (auto) 14.1 %; Neutrophils # (auto) 3.46 K/uL (1.4-6.5); Neutrophils % (auto) 73.8 %; Platelet Count 187 K/uL (130-400); RDW Coefficient of Variation 13.9 % (11.5-14.5); RDW Standard Deviation 46.8 fL (36.4-46.3); Red Blood Count 3.17 M/uL (4.7-6.1); White Blood Count 4.69 K/uL (4.8-10.8)
[2020-02-09] MEDS: ACETAMINOPHEN 325 MG TAB PO SCH ×3 (05:57→21:35)
[2020-02-09 06:02] LABS: Albumin Level 2.4 gm/dl (3.4-5.0); BUN Creatinine Ratio 24.3 (10-20); Calcium 8.1 mg/dl (8.5-10.1); Creatinine Clr Calc Pharmacy 89.3 ml/min; Est GFR (African American) 117.3; Est GFR (Non-African American) 101.2; Magnesium 2.1 mg/dl (1.8-2.4); Potassium 4.1 mmol/L (3.5-5.1)
[2020-02-09 06:05] LABS: Albumin Globulin Ratio 0.8 (0.9-2); Bilirubin,Total 0.3 mg/dl (0.2-1); Ferritin 933.1 ng/ml (8-388); Globulin 3.2 gm/dl (2.5-4.0); Phosphorus 3.3 mg/dl (2.5-4.9); Total Protein 5.6 gm/dl (6.4-8.2)
[2020-02-09] MEDS: INSULIN ASPART 100 UNITS/ML 3 ML PEN SC SCH ×4 (07:08→21:35)
[2020-02-09] MEDS: AMIODARONE 200 MG TAB PO SCH (08:44)
[2020-02-09] MEDS: PANTOprazole 40 MG TAB PO SCH (08:45)
[2020-02-09] MEDS: FUROSEMIDE 20 MG TAB PO SCH (08:45)
[2020-02-09] MEDS: dexAMETHasone 1 MG TAB PO SCH (08:45)
[2020-02-09] MEDS: DOCUSATE SODIUM 100 MG CAP PO SCH ×2 (08:46→21:33)
[2020-02-09] MEDS: ASPIRIN 81 MG ECTAB PO SCH (08:46)
[2020-02-09] MEDS ORDERED: dexAMETHasone 1 MG TAB PO SCH (09:00)
[2020-02-09] MEDS: fentaNYL 75 MCG/HR TDSY TD SCH (09:06)
--- NOTE | 2020-02-09 09:34 | Cardiology Consultation ---
Date of Consultation Patient was admitted to the hospital with lower extremity edema as well as refractory metastatic bone pain from prostate cancer. He denies any chest pain chest pressure chest heaviness denies any lightheadedness or dizziness. Denies any palpitations or fluttering or feeling his heart racing.His lower extremity edema has resolved. He actually feels what he describes is the best he has felt in a long time in many ways he seems almost euphoric with his pain medication. He denies a cough fevers chills or sweats. He notes his appetite is improved a nd he ate his entire breakfast this morning.The rest of a complete review of systems is otherwise negative February 09, 2020 History of Present Illness Attending Physician: Riki Nichols MD Allergies Allergy/AdvReac Type Severity Reaction Status Date / Time Penicillins Allergy Mild Rash Verified 02/08/20 14:38 Home Medications Home Medications Medication Instructions Recorded Confirmed Type amiodarone 100 mg PO QAM 11/07/19 02/08/20 History metformin 1,000 mg PO QAM 11/07/19 02/08/20 History metformin 500 mg PO QPM 11/07/19 02/08/20 History omeprazole 20 mg PO QAM 11/07/19 02/08/20 History aspirin 81 mg PO QAM 11/08/19 02/08/20 History multivitamin with minerals 1 tab PO QAM 11/08/19 02/08/20 History docusate sodium [Colace] 100 mg PO BID #14 cap 11/18/19 02/08/20 Rx leuprolide (3 month) 22.5 mg (3 22.5 mg IM .q3 mo ea 12/02/19 02/08/20 History month) intramuscular syringe kit ondansetron HCl 8 mg tablet 8 mg PO Q8H PRN 01/12/20 02/08/20 History dexamethasone 2 mg PO DAILY 02/08/20 02/08/20 History fentanyl 1 patch TRANSDERMAL Q72H 02/08/20 02/08/20 History furosemide 20 mg PO Q2D 02/08/20 02/08/20 History oxycodone 5 mg PO Q8H PRN 02/08/20 02/08/20 History oxycodone [OxyContin] 30 mg PO Q12H 02/08/20 02/08/20 History Patient History Medical History Abdominal pain, lower Back pain Bone metastases Cardiac arrhythmia Constipation CVA (cerebral vascular accident) x3--last when pt had a heart attack 06/2019--difficulty walking, slight memory issues, no blood thinners Depression Diabetes mellitus, type 2 History of kidney stones Hyperlipidemia Hypertension Myocardial Infarction 06/2019--was taken to [facility] in [place] (had a stroke as well), did not have a heart cath/heart surgery--follows with Dr. Iyer at [facility], no blood thinners Prostate cancer 1999--bone metastases---sx/radiation/chemo Surgical History History of colonoscopy History of prostate biopsy malignant History of tooth extraction History of wisdom tooth extraction Hx of prostatectomy S/P cystourethroscopy with dilation of urethral stricture Family History Mother , age 99 old age Diabetes Father , age 78 prostate ca Prostate cancer Brother , liver cancer No problems noted. Brother No problems noted. Brother No problems noted. Brother No problems noted. Sister No problems noted. Sister No problems noted. Sister No problems noted. Son No problems noted. Daughter No problems noted. Other No family history of adverse response to anesthesia Social History Smoking Status: Never smoker Second Hand Exposure: No; Do You Dip or Chew Tobacco: No; Tobacco Cessation Education Requested by Patient: No Hx Alcohol Use: No Hx Substance Use: No Preferred Language: Turkmen Communication Ability: Effective Visual Impairment: No Limitations Hearing Ability: Normal Administrative Assistant Data Entry Required: No Beliefs That Will Affect Care: None marital status: Current Living Situation: Family Current Living Situation Comment: Lives w/ son, Florencio BrownJr haylie. 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 Other Information That Helps Us Care for You: No Feels Safe at Home: Yes Safety Concerns: Feels Safe At This Time Childhood Exposure to Second-Hand Smoke: No Diet Comment: low carbs for diabetes management caffeine: Yes (2 cups per day) during the past year weight has: decreased > 10 lbs Dental Care, Regularly: Yes Physical Activity Frequency: Does not Exercise Seatbelt Use: always Sunscreen Use: Yes Results & Data ([facility]) Vital Signs (Past 12 Hours) Vital Signs Temp Pulse Pulse Resp BP BP Pulse Ox 02/09/20 07:40 91/52 L 91/51 L 02/09/20 07:23 36.4 C L 72 18 82/37 L 98 02/09/20 07:06 71 02/09/20 04:49 101/54 L 02/09/20 04:41 36.4 C L 70 20 86/48 L 96 02/09/20 01:20 87 02/08/20 23:27 36.5 C 98 H 20 115/72 97 02/08/20 22:13 36.8 C 89 18 121/73 98 02/08/20 22:00 36.5 C 98 H 20 115/72 97 He is awake alert and oriented x3 he does look cachectic. H EENT 2+ carotid upstrokes no evidence of carotid bruits jugular venous pressure appeared normal Lungs: Clear to auscultation bilaterally no rales rhonchi or wheezing Heart regular rate and rhythm no appreciable murmurs rubs or gallops Abdomen soft nontender distended positive bowel sounds Extremities no clubbing cyanosis or edema Psychiatric he appeared euphoric Impressions: 1. lower extremity edema which has resolved and is likely related to his low albumin 2. Metastatic prostate cancer with significant osteoblastic lesions and chronic pain on imaging 3. Three-vessel coronary artery disease at the time of an ST elevation myocardial infarction July 2019 4. No indication for CABG or PCI at the time of his heart attack July 2019 5. Sustained monomorphic VT Mild ischemic cardiomyopathy with an EF in the range of 45% 6. Status post bifrontal CVA June 2019 and again in July 2019 for which he received TPA I would restart AMio at 100mg daily No room given BP for BB Palliative cardiac care given the extent of metastatic prostate CA Clinically no CHF and if edema returns (likely from dependent and low albumin) then compression stockings Not symptomatic with BP at this time
[2020-02-09] MEDS: OXYCODONE HCL 15 MG TABCR (OXYCONTIN) PO SCH ×2 (11:15→21:34)
[2020-02-09] MEDS: OXYCODONE HCL IR 5 MG TAB (IMMEDIATE RELEASE) PO PRN (11:25)
--- NOTE | 2020-02-09 12:49 | Electrocardiogram Report ---
Test Reason : Blood Pressure : / mmHG Vent. Rate : 071 BPM Atrial Rate : 071 BPM P-R Int : 190 ms QRS Dur : 096 ms QT Int : 406 ms P-R-T Axes : 049 -12 -02 degrees QTc Int : 441 ms Normal sinus rhythm Inferior infarct (cited on or before 08-FEB-2020) Abnormal ECG When compared with ECG of 08-FEB-2020 14:06, Nonspecific T wave abnormality now evident in Inferior leads Confirmed by Tim Gama ([id number]) on 02/09/2020 12:49:09 PM Referred By: REFERRED SELF Confirmed By:Tim Gama
--- NOTE | 2020-02-09 13:11 | Hospitalist Progress Note ---
Date of Service February 09, 2020 Assessment & Plan (1) Bilateral swelling of feet: Doppler US was negative for clot in both legs. No sign of fluid overload Resolved (2) Prostate cancer metastatic to bone: (3) Cancer related pain: 01/26/2020. Status post completion of palliative radiation therapy to the pelvis CT Lumbar spine and abdomen/pelvis showed extensive osteoblastic metastatic disease, progressed from 11/18/2019. Imaging finding discussed with Radiation Oncology Dr. Morris that does not plan to do another palliative radiation unless his pain is not controlled Outpatient pain management by Dr. Rao Pain control (4) Acute UTI: urine cx positive for gram negative bacilli Continue IV rocephin for now Will follow urine sensitivity (5) Abdominal pain, lower: Possible etiologies include but are not limited to UTI, possible hematoma in the oblique musculature, or cancer-related pain. CT abd/pelvis showed asymmetric enlargement and heterogeneity of the left internal and external oblique muscles with possible intramuscular hematoma. pain control (6) Cardiac arrhythmia: STEMI in early 2019 associated with monomorphic ventricular tachycardia. No arrhythmia noted on tele monitor Continue amiodarone PO Stable (7) Anemia: Recent Cologard test was positive for occult blood. Would pursue outpatient coloscopy based on PCP recommendations. Hgb 9.7 today Continue monitor H/H while on aspirin (8) CVA (cerebral vascular accident): Continue medical management including ASA, statin. 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 Continue Lantus and Novolog sliding scale Continue monitor BS (13) DVT prophylaxis: SCDs while anemia and possible blood loss causing hematoma. CODE STATUS FULL CODE Admission and Anticipated Discharge Date Admission Date: February 08, 2020 Subjective Pt was seen and examined Sitting at the edge of the bed with no distress Pt said that he feels good He said that his pain is controlled He has not had a bowel movement for about 3 days Denies any chest pain, palpitation, dizziness and SOB Physical Exam Physical Exam: General- No acute distress Head- atraumatic Eyes- PERRL, EOMI, ENT- oropharynx clear Neck- supple, no JVD Lungs- clear to auscultation Heart- regular rhythm; no murmur Abdomen- normal bowel sounds, soft, nontender Extremities- no calf tenderness, No edema Neuro- alert, oriented x 3; PERRL, EOMI; no facial palsy; no dysarthria Skin- warm & dry Results & Data Results & Data ([facility]) Vital Signs (Past 12 Hours) Vital Signs Temp Pulse Pulse Resp BP BP Pulse Ox 02/09/20 12:06 36.5 C 74 18 112/63 98 02/09/20 07:40 91/52 L 91/51 L 02/09/20 07:23 36.4 C L 72 18 82/37 L 98 02/09/20 07:06 71 02/09/20 04:49 101/54 L 02/09/20 04:41 36.4 C L 70 20 86/48 L 96 02/09/20 01:20 87 (1) Anemia Anemia type: unspecified type Qualified Code(s): D64.9 - Anemia, unspecified
--- NOTE | 2020-02-09 13:51 | Palliative Care Consultation ---
Date of Consultation February 09, 2020 Assessment & Plan (1) Cancer related pain: Patient is known to me from outpatient palliative clinic. Patient was seen in clinic on 02/03/2020 for cancer related pain. Briefly patient is a 69-year-old male with a past medical history of prostate cancer diagnosed in 1999, status post prostatectomy and XRT. Several years later he was found to have widespread blastic mets to the bone and has been experiencing severe pain in his low back and pelvis. Pain is constant and will awaken him from sleep, repositioning does not help. Patient was on immediate release oxycodone and require numerous doses daily. Patient recently underwent XRT x15 fractions for several bone mets-this was completed on 01/26/2020. Patient was started on a fentanyl patch at 12 mcg and this was titrated up to 75 mcg- patient reports little effect-suspected that due to low subcu fat patient was not absorbing patch. Patient was started on OxyContin at 30 mg every 12, to continue PRN oxycodone. He was also started on Decadron at 2 mg daily for bone pain in place of prednisone. -Patient unable to give clear details of his pain management-spoke with patient's son, Laith, . He reported that they had discontinued the patch but patient's pain had increased, they replaced the patch on 02/05 at 11 AM-son reports patient slept well that evening as well as the following evening, however last evening patient was having severe pain in the lower extremity swelling which brought him to the emergency room. In the ER patient received IV morphine at 4 mg x 2 with good response. Since then patient has only required 1 PRN oxycodone and that was at 1125 this a.m. -On exam patient reports he has no pain, feels "great"-son reports he frequently states that to medical personnel, however they see things differently when he is at home. -Collaborated with attending physician-would continue fentanyl patch, oxycodone at 30 mg every 12, as well as Decadron. Would recommend 5 mg of oxycodone as needed, if he were to have another episode of severe pain-would recommend 2-3 tabs PRN with a call to my office the following morning. -Patient with a positive UA as well as gram-negative bacillus on urine culture- has a history of Klebsiella UTI in the past. Patient's UTI may have triggered a pain crisis. - PPS 50% ECOG 2 (2) Prostate cancer metastatic to bone: (3) Pedal edema: (4) Acute UTI: History of Present Illness Reason for Consultation: Patient established in the outpatient palliative clinic, consulted to assist with pain management Requesting Physician: Dr. Davis Attending Physician: Riki Nichols MD History of Present Illness Patient is known to me from outpatient palliative clinic. Patient was seen in clinic on 02/03/2020 for cancer related pain. Briefly patient is a 69-year-old male with a past medical history of prostate ca ncer diagnosed in 1999, status post prostatectomy and XRT. Several years later he was found to have widespread blastic mets to the bone and has been experiencing severe pain in his low back and pelvis. Pain is constant and will awaken him from sleep, repositioning does not help. Patient was on immediate release oxycodone and require numerous doses daily. Patient recently underwent XRT x15 fractions for several bone mets-this was completed on 01/26/2020. Patient was started on a fentanyl patch at 12 mcg and this was titrated up to 75 mcg- patient reports little effect-suspected that due to low subcu fat patient was not absorbing patch. Patient was started on OxyContin at 30 mg every 12, to continue PRN oxycodone. He was also started on Decadron at 2 mg daily for bone pain in place of prednisone. -Patient unable to give clear details of his pain management-spoke with patient's son, Laith, . He reported that they had discontinued the patch but patient's pain had increased, they replaced the patch on 02/05 at 11 AM-son reports patient slept well that evening as well as the following evening, however last evening patient was having severe pain in the lower extremity swell ing which brought him to the emergency room. In the ER patient received IV morphine at 4 mg x 2 with good response. Since then patient has only required 1 PRN oxycodone and that was at 1125 this a.m. -On exam patient reports he has no pain, feels "great"-son reports he frequently states that to medical personnel, however they see things differently when he is at home. -Collaborated with attending physician-would continue fentanyl patch, oxycodone at 30 mg every 12, as well as Decadron. Would recommend 5 mg of oxycodone as needed, if he were to have another episode of severe pain-would recommend 2-3 tabs PRN with a call to my office the following morning. -Patient with a positive UA as well as gram-negative bacillus on urine culture- has a history of Klebsiella UTI in the past. Patient's UTI may have triggered a pain crisis. - PPS 50% ECOG 2 Allergies Allergy/AdvReac Type Severity Reaction Status Date / Time Penicillins Allergy Mild Rash Verified 02/08/20 14:38 Home Medications Home Medications Medication Instructions Recorded Confirmed Type amiodarone 100 mg PO QAM 11/07/19 02/08/20 History metformin 1,000 mg PO QAM 11/07/19 02/08/20 History metformin 500 mg PO QPM 11/07/19 02/08/20 History omeprazole 20 mg PO QAM 11/07/19 02/08/20 History aspirin 81 mg PO QAM 11/08/19 02/08/20 History multivitamin with minerals 1 tab PO QAM 11/08/19 02/08/20 History docusate sodium [Colace] 100 mg PO BID #14 cap 11/18/19 02/08/20 Rx leuprolide (3 month) 22.5 mg (3 22.5 mg IM .q3 mo ea 12/02/19 02/08/20 History month) intramuscular syringe kit ondansetron HCl 8 mg tablet 8 mg PO Q8H PRN 01/12/20 02/08/20 History dexamethasone 2 mg PO DAILY 02/08/20 02/08/20 History fentanyl 1 patch TRANSDERMAL Q72H 02/08/20 02/08/20 History furosemide 20 mg PO Q2D 02/08/20 02/08/20 History oxycodone 5 mg PO Q8H PRN 02/08/20 02/08/20 History oxycodone [OxyContin] 30 mg PO Q12H 02/08/20 02/08/20 History Patient History Medical History Abdominal pain, lower Back pain Bone metastases Cardiac arrhythmia Constipation CVA (cerebral vascular accident) x3--last when pt had a heart attack 06/2019--difficulty walking, slight memory issues, no blood thinners Depression Diabetes mellitus, type 2 History of kidney stones Hyperlipidemia Hypertension Myocardial Infarction 06/2019--was taken to [facility] in [place] (had a stroke as well), did not have a heart cath/heart surgery--follows with Dr. Iyer at [facility], no blood thinners Prostate cancer 1999--bone metastases---sx/radiation/chemo Surgical History History of colonoscopy History of prostate biopsy malignant History of tooth extraction History of wisdom tooth extraction Hx of prostatectomy S/P cystourethroscopy with dilation of urethral stricture Family History Mother , age 99 old age Diabetes Father , age 78 prostate ca Prostate cancer Brother , liver cancer No problems noted. Brother No problems noted. Brother No problems noted. Brother No problems noted. Sister No problems noted. Sister No problems noted. Sister No problems noted. Son No problems noted. Daughter No problems noted. Other No family history of adverse response to anesthesia Social History Smoking Status: Never smoker Second Hand Exposure: No; Do You Dip or Chew Tobacco: No; Tobacco Cessation Education Requested by Patient: No Hx Alcohol Use: No Hx Substance Use: No Preferred Language: Armenian Communication Ability: Effective Visual Impairment: No Limitations Hearing Ability: Normal Forms Designer Required: No Beliefs That Will Affect Care: None marital status: Current Living Situation: Family Current Living Situation Comment: Lives w/ son, Florencio BrownJr haylie. 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 Lower extremity swelling has resolved Physical Exam Physical Exam: PE: Patient awake alert, sitting on side of bed, moving around easily without any signs or symptoms of pain HEENT: EOMI, hearing within normal limits Respirations: Unlabored, clear breath sounds CV: Regular rate, no edema Abdomen: Soft, not distended Extremities: Thin, cachectic, full range of motion Neuro: Alert and oriented Results & Data ([facility]) Vital Signs (Past 12 Hours) Vital Signs Temp Pulse Pulse Resp BP BP Pulse Ox 02/09/20 12:06 97.7 F 74 18 112/63 98 02/09/20 07:40 91/52 L 91/51 L 02/09/20 07:23 97.5 F L 72 18 82/37 L 98 02/09/20 07:06 71 02/09/20 04:49 101/54 L 02/09/20 04:41 97.5 F L 70 20 86/48 L 96 PG Care Time/CCT Total # of Minutes Spent Total Time Spent with Patient: Total time spent 55 minutes with greater than 50% of the time spent at bedside assessing patient's current pain control as well as collaborating with patient's son by phone. Collaborated with attending physician. Coding Level of Care Code 43334 Inpt Consult Level 2 Diagnoses Cancer related pain G89.3 Prostate cancer metastatic to bone C61; C79.51 Pedal edema R60.0 Acute UTI N39.0 Time Spent (min) 55
[2020-02-09] MEDS ORDERED: cefTRIAXone SODIUM 1,000 MG in DEXTROSE 5% 50 ML IV SCH (16:00)
[2020-02-09] MEDS: INSULIN GLARGINE SOLOSTAR 100 UNITS/ML 3 ML PEN SC SCH (21:35)
[2020-02-10] MEDS: ACETAMINOPHEN 325 MG TAB PO SCH ×3 (05:36→21:05)
[2020-02-10] MEDS: PANTOprazole 40 MG TAB PO SCH (08:32)
[2020-02-10] MEDS: ASPIRIN 81 MG ECTAB PO SCH (08:32)
[2020-02-10] MEDS: dexAMETHasone 1 MG TAB PO SCH (08:32)
[2020-02-10] MEDS: DOCUSATE SODIUM 100 MG CAP PO SCH ×2 (08:33→21:00)
[2020-02-10] MEDS: CHECK FENTANYL PATCH PLACEMENT SCH ×3 (08:33→23:57)
[2020-02-10] MEDS: AMIODARONE 200 MG TAB PO SCH (08:33)
[2020-02-10] MEDS: INSULIN ASPART 100 UNITS/ML 3 ML PEN SC SCH ×4 (08:35→21:01)
[2020-02-10] MEDS: ERTAPENEM SODIUM 1,000 MG in SODIUM CHLORIDE 0.9% 50 ML IV SCH (10:22)
[2020-02-10] MEDS: OXYCODONE HCL IR 5 MG TAB (IMMEDIATE RELEASE) PO PRN ×2 (10:24→22:18)
[2020-02-10] MEDS: OXYCODONE HCL 15 MG TABCR (OXYCONTIN) PO SCH ×2 (10:33→22:57)
--- NOTE | 2020-02-10 13:04 | Electrocardiogram Report ---
Test Reason : Blood Pressure : / mmHG Vent. Rate : 073 BPM Atrial Rate : 073 BPM P-R Int : 180 ms QRS Dur : 092 ms QT Int : 392 ms P-R-T Axes : 061 -31 -13 degrees QTc Int : 431 ms Normal sinus rhythm Left axis deviation Inferior infarct (cited on or before 08-FEB-2020) Abnormal ECG When compared with ECG of 09-FEB-2020 06:39, No significant change was found Confirmed by Tim Gama ([id number]) on 02/10/2020 1:03:40 PM Referred By: REFERRED SELF Confirmed By:Tim Gama
--- NOTE | 2020-02-10 13:33 | Hospitalist Progress Note ---
Date of Service February 10, 2020 Assessment & Plan (1) Bilateral swelling of feet: Doppler US was negative for clot in both legs. No sign of fluid overload Resolved (2) Prostate cancer metastatic to bone: (3) Cancer related pain: Status post completion of palliative radiation therapy to the pelvis on 01/26/20 CT Lumbar spine and abdomen/pelvis showed extensive osteoblastic metastatic disease, progressed from 11/18/2019. Imaging finding discussed with Radiation Oncology Dr. Morris that does not plan to do another palliative radiation unless his pain is not controlled Case discussed palliative care provider Dr. Rao that recommended to continue fentanyl patch, oxycodone at 30 mg every 12, as well as Decadron; Then 5 mg of oxycodone as needed if pain become severe Follow up with Dr. Rao for pain management Pain control (4) Acute UTI: urine cx positive for gram negative bacilli Was starting on Rocephin Urine cx grew ESBL Will change IV Rocephin to Ertapenem Will try to reach to ID about any oral option such as Bactrim or Nitrofurantoin (5) Abdominal pain, lower: Possible etiologies include but are not limited to UTI, possible hematoma in the oblique musculature, or cancer-related pain. CT abd/pelvis showed asymmetric enlargement and heterogeneity of the left internal and external oblique muscles with possible intramuscular hematoma. pain control (6) Cardiac arrhythmia: STEMI in early 2019 associated with monomorphic ventricular tachycardia. No arrhythmia noted on tele monitor Continue amiodarone PO Stable (7) Anemia: Recent Cologard test was positive for occult blood. Would pursue outpatient coloscopy based on PCP recommendations. Hgb 9.7 today Continue monitor H/H while on aspirin (8) CVA (cerebral vascular accident): Continue medical management including ASA, statin. Stable (9) Constipation: related to Opioid Pt had a bowel movement yesterday as per nurse Continue Miralax and Docusate (10) Ischemic cardiomyopathy: Denies any chest pain Troponin x 3 negative Cardio on board Continue statin and aspirin (11) Weight loss: Related to cancer Superintendent Recreation on board Advised pt to increase protein intake (12) Diabetes mellitus, type 2: BS was 69 this morning Continue to hold metformin. Continue Lantus and Novolog sliding scale Continue monitor BS (13) DVT prophylaxis: SCDs while anemia and possible blood loss causing hematoma. CODE STATUS FULL CODE Disposition Possible discharge home today once abx finalizes Admission and Anticipated Discharge Date Admission Date: February 08, 2020 Subjective Pt was seen and examined Sitting at the edge of the bed with no distress Pt said that he feels fine He said that he does not have any pain Pt said that he is back to his baseline Denies any chest pain, palpitation, dizziness and SOB Physical Exam Physical Exam: General- No acute distress Head- atraumatic Eyes- PERRL, EOMI, ENT- oropharynx clear Neck- supple, no JVD Lungs- clear to auscultation Heart- regular rhythm; no murmur Abdomen- normal bowel sounds, soft, nontender Extremities- no calf tenderness, No edema Neuro- alert, oriented x 3; PERRL, EOMI; no facial palsy; no dysarthria Skin- warm & dry Results & Data Results & Data ([facility]) Vital Signs (Past 12 Hours) Vital Signs Temp Pulse Pulse Resp BP Pulse Ox 02/10/20 11:31 36.4 C L 77 16 115/65 98 02/10/20 07:23 74 02/10/20 07:13 36.8 C 74 18 92/53 L 97 02/10/20 03:55 36.7 C 75 17 119/68 98 (1) Anemia Anemia type: unspecified type Qualified Code(s): D64.9 - Anemia, unspecified
[2020-02-10] MEDS: INSULIN GLARGINE SOLOSTAR 100 UNITS/ML 3 ML PEN SC SCH (21:01)
[2020-02-11] MEDS: OXYCODONE HCL IR 5 MG TAB (IMMEDIATE RELEASE) PO PRN ×3 (03:56→22:43)
[2020-02-11] MEDS: ACETAMINOPHEN 325 MG TAB PO SCH ×3 (05:55→21:34)
[2020-02-11 08:13] LABS: Basophils # (auto) 0.02 K/uL (0-0.2); Basophils % (auto) 0.4 %; Eosinophils # (auto) 0.07 K/uL (0-0.5); Eosinophils % (auto) 1.5 %; Hemoglobin 10.2 g/dL (14.0-18.0); Immature Granulocytes # (auto) 0.02 K/uL (0.00-0.02); Immature Granulocytes % (auto) 0.4 %; Lymphocytes # (auto) 0.43 K/uL (1.2-3.4); Lymphocytes % (auto) 9.5 %; Mean Corpuscular Hemoglobin 30.5 pg (25-34); Mean Corpuscular Hgb Conc 32.9 g/dL (32-36); Mean Corpuscular Volume 92.8 fL (80-100); Mean Platelet Volume 8.4 fL (7.4-10.4); Monocytes # (auto) 0.56 K/uL (0.11-0.59); Monocytes % (auto) 12.4 %; Neutrophils # (auto) 3.43 K/uL (1.4-6.5); Neutrophils % (auto) 75.8 %; Platelet Count 221 K/uL (130-400); RDW Standard Deviation 47.6 fL (36.4-46.3); Red Blood Count 3.34 M/uL (4.7-6.1); White Blood Count 4.53 K/uL (4.8-10.8)
[2020-02-11] MEDS ORDERED: ACETAMINOPHEN 325 MG TAB PO PRN (08:15)
[2020-02-11] MEDS: ERTAPENEM SODIUM 1,000 MG in SODIUM CHLORIDE 0.9% 50 ML IV SCH (08:35)
[2020-02-11] MEDS: AMIODARONE 200 MG TAB PO SCH (08:36)
[2020-02-11] MEDS: PANTOprazole 40 MG TAB PO SCH (08:36)
[2020-02-11] MEDS: ASPIRIN 81 MG ECTAB PO SCH (08:36)
[2020-02-11] MEDS: FUROSEMIDE 20 MG TAB PO SCH (08:36)
[2020-02-11] MEDS: DOCUSATE SODIUM 100 MG CAP PO SCH ×2 (08:36→21:34)
[2020-02-11] MEDS: dexAMETHasone 1 MG TAB PO SCH (08:36)
[2020-02-11] MEDS: CHECK FENTANYL PATCH PLACEMENT SCH ×3 (08:40→23:32)
[2020-02-11] MEDS: INSULIN ASPART 100 UNITS/ML 3 ML PEN SC SCH ×4 (08:41→21:09)
[2020-02-11 09:00] LABS: Albumin Globulin Ratio 0.9 (0.9-2); Albumin Level 2.7 gm/dl (3.4-5.0); BUN Creatinine Ratio 20.9 (10-20); Bilirubin,Total 0.2 mg/dl (0.2-1); Calcium 8.7 mg/dl (8.5-10.1); Est GFR (Non-African American) 91.5; Globulin 3.1 gm/dl (2.5-4.0); Potassium 3.9 mmol/L (3.5-5.1); Total Protein 5.8 gm/dl (6.4-8.2)
[2020-02-11] MEDS: OXYCODONE HCL 15 MG TABCR (OXYCONTIN) PO SCH ×2 (09:58→21:37)
--- NOTE | 2020-02-11 15:48 | Hospitalist Progress Note ---
Date of Service February 11, 2020 Assessment & Plan (1) Acute UTI: -urine culture was positive for gram negative bacilli and initially patient was on ceftriaxone, but then the urine culture speciated as Escherichia coli ESBL -currently on IV Ertapenem -follow blood cultures drawn on 02/10/2020 (2) Prostate cancer metastatic to bone: -Status post completion of palliative radiation therapy to the pelvis on 01/26/2020 -this admission CT Lumbar spine and abdomen/pelvis showed extensive osteoblastic metastatic disease, progressed from 11/18/2019. -Indeterminate 8 mm hypodense focus of the left hepatic lobe which appears to be new on this admission CT abdomen scan -Imaging finding discussed with Radiation Oncology Dr. Morris that does not plan to do another palliative radiation unless his pain is not controlled -Case discussed palliative care provider Dr. Rao that recommended to continue fentanyl patch, oxycodone at 30 mg every 12, as well as Decadron; Then 5 mg of oxycodone as needed if pain become severe Follow up with Dr. Rao for pain management (3) Cancer related pain: -appears comfortable currently (4) Constipation: -patient reports constipation at home that has resolved on this admission -continue current bowel regimen (5) Abdominal pain, lower: admission CT abdomen 1. Asymmetric enlargement and heterogeneity of the left internal and external oblique muscles with possible intramuscular hematoma. 2. Extensive osteoblastic metastatic disease redemonstrated which appears to have progressed from 11/18/2019. No acute pathologic fracture identified. 3. Moderate fecal retention. 4. No bowel obstruction or bowel wall thickening. 5. Distended gallbladder with cholelithiasis. 6. Indeterminate 8 mm hypodense focus of the left hepatic lobe which appears to be new from comparison. -abdominal pain appears resolved at this time and could have been related to resolved constipatione (6) Bilateral swelling of feet: -Doppler US was negative for clot in both legs. 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 -Continue Lantus and Novolog sliding scale while inpatient (11) Anemia: -Recent Cologard test was positive for occult blood, patient may pursue outpatient coloscopy based on PCP recommendations. -patient is on aspirin daily -blood counts with stable Hgb around 10 on this hospital admission (12) CVA (cerebral vascular accident): History of stroke in the past (not on this admission) -Continue medical management including ASA, statin. (13) DVT prophylaxis: -SCDs CODE STATUS FULL CODE Admission and Anticipated Discharge Date Admission Date: February 08, 2020 Subjective Patient seen and examined today and he denies acute pain. He reports that since the constipation resolved, he has been feeling much better. breathing on room air. no shortness of breath. no chest pain. ambulates. we discussed further antibiotic care in the hospital while awaiting the 02/10/2020 blood cultures. Patient is agreeable to the plan. Review of Systems Review of Systems: All systems reviewed & are unremarkable except as noted in Subjective Physical Exam Constitutional: comfortable Eyes: PERRL, conjunctivae normal, anicteric sclerae EOM intact bilaterally ENMT: external ear and nose normal, oropharynx normal Neck: trachea midline, no thyromegaly normal visual inspection Respiratory: normal respiratory effort, lungs clear to auscultation normal respiratory effort Cardiovascular: Rate/Rhythm: regular rate and regular rhythm Gastrointestinal (Abdomen): normal bowel sounds, soft, nontender, no hepatosplenomegaly Musculoskeletal: Head/Neck/Chest: normocephalic and head atraumatic Neurologic: PERRL, EOMI, accommodation nl, no face palsy, no dysarthria moves all extremities Psychiatric: A+Ox3, euthymic affect Results & Data Results & Data ([facility]) Vital Signs (Past 12 Hours) Vital Signs Temp Pulse Pulse Resp BP Pulse Ox 02/11/20 15:26 36.9 C 84 18 98/60 L 96 02/11/20 11:17 36.7 C 72 18 101/65 97 02/11/20 07:25 73 02/11/20 07:15 36.8 C 71 18 101/55 L 97 02/11/20 04:22 36.6 C 72 20 112/66 98 (1) Anemia Anemia type: unspecified type Qualified Code(s): D64.9 - Anemia, unspecified
[2020-02-11] MEDS: INSULIN GLARGINE SOLOSTAR 100 UNITS/ML 3 ML PEN SC SCH (21:36)
[2020-02-12] MEDS: ACETAMINOPHEN 325 MG TAB PO SCH (05:52)
[2020-02-12] MEDS: INSULIN ASPART 100 UNITS/ML 3 ML PEN SC SCH ×2 (10:19→13:04)
[2020-02-12] MEDS: CHECK FENTANYL PATCH PLACEMENT SCH (10:23)
[2020-02-12] MEDS: dexAMETHasone 1 MG TAB PO SCH (10:24)
[2020-02-12] MEDS: fentaNYL 75 MCG/HR TDSY TD SCH (10:24)
[2020-02-12] MEDS: AMIODARONE 200 MG TAB PO SCH (10:24)
[2020-02-12] MEDS: ASPIRIN 81 MG ECTAB PO SCH (10:25)
[2020-02-12] MEDS: OXYCODONE HCL 15 MG TABCR (OXYCONTIN) PO SCH (10:25)
[2020-02-12] MEDS: PANTOprazole 40 MG TAB PO SCH (10:25)
[2020-02-12] MEDS: ERTAPENEM SODIUM 1,000 MG in SODIUM CHLORIDE 0.9% 50 ML IV SCH (10:25)
[2020-02-12] MEDS: DOCUSATE SODIUM 100 MG CAP PO SCH (10:36)
[2020-02-12] MEDS ORDERED: SENNA 8.6 MG TAB PO SCH (12:15)
--- NOTE | 2020-02-12 12:30 | Hospitalist Progress Note ---
Date of Service February 12, 2020 Assessment & Plan (1) Acute UTI: -urine culture was positive for gram negative bacilli and initially patient was on ceftriaxone, but then the urine culture speciated as Escherichia coli ESBL -currently on IV Ertapenem daily from 02/10/2020, blood cultures drawn on 02/10/2020 with no growth to date, patient received last dose of Ertapenem on 02/12/2020. Infectious Disease consult from [facility] supports transition to oral bactrim for discharge. -discharge medication sent electronically to [address] [place] [address] for Bactrim twice a day for 11 more days starting on 02/13/2020 to finish antibiotic treatment for ESBL E.coli urinary tract infection -upcoming scheduled appointments with [facility] 02/17/2020 2:00 PM Provider Roseanne Morris MD Department General Internal Medicine [facility] 04/01/2020 12:40 PM Provider Roseanne Morris MD Department General Internal Medicine [facility] (2) Prostate cancer metastatic to bone: -Status post completion of palliative radiation therapy to the pelvis on 01/26/2020 -this admission CT Lumbar spine and abdomen/pelvis showed extensive osteoblastic metastatic disease, progressed from 11/18/2019. -Indeterminate 8 mm hypodense focus of the left hepatic lobe which appears to be new on this admission CT abdomen scan -Imaging finding discussed with Radiation Oncology Dr. Morris that does not plan to do another palliative radiation unless his pain is not controlled -previous hospitalist discussed with palliative care provider Dr. Rao that recommended to continue fentanyl patch, oxycodone at 30 mg every 12, as well as Decadron; Then 5 mg of oxycodone as needed if pain become severe while inpatient -discharge hospitalist discussed with patient's son that patient will follow up with Dr. Iyer of [facility] and also Dr. Moreno for pain medication needs in the context of cancer (3) Cancer related pain: -appears comfortable currently (4) Constipation: -patient reports constipation at home that has resolved on this admission -discharge medication of senna daily as new prescription (5) Abdominal pain, lower: admission CT abdomen 1. Asymmetric enlargement and heterogeneity of the left internal and external oblique muscles with possible intramuscular hematoma. 2. Extensive osteoblastic metastatic disease redemonstrated which appears to have progressed from 11/18/2019. No acute pathologic fracture identified. 3. Moderate fecal retention. 4. No bowel obstruction or bowel wall thickening. 5. Distended gallbladder with cholelithiasis. 6. Indeterminate 8 mm hypodense focus of the left hepatic lobe which appears to be new from comparison. -patient to follow up with [facility] Dr. Winn in regards to liver in context of cancer history -abdominal pain appears resolved at this time and could have been related to res olved constipation (6) Bilateral swelling of feet: -Doppler US was negative for clot in both legs. 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 -Continue home dose amiodarone (8) Ischemic cardiomyopathy: -Denies any chest pain -Troponin x 3 negative between 02/08/2020 to 02/09/2020 -Continue statin and aspirin (9) Weight loss: -Related to cancer -BOOST supplements with meals (10) Diabetes mellitus, type 2: Diabetes type 2 without custodial current use of insulin -was given Lantus and Novolog sliding scale while inpatient -can resume home dose metformin on discharge (11) Anemia: -Recent Cologard test was positive for occult blood, patient may pursue outpatient coloscopy based on PCP recommendations. -patient is on aspirin daily -blood counts with stable Hgb around 10 on this hospital admission (12) CVA (cerebral vascular accident): History of stroke in the past (not on this admission) -Continue medical management including ASA, statin. (13) DVT prophylaxis: -SCDs were given while inpatient, patient ambulatory Patient's son [phone] Admission and Anticipated Discharge Date Admission Date: February 08, 2020 Subjective patient's pain appears controlled in general. he has been ambulating. no fevers. no dizziness. no headache. no shortness of breath. no chest pain. we discussed discharge plans and instructions at length Review of Systems Review of Systems: All systems reviewed & are unremarkable except as noted in Subjective Physical Exam Constitutional: comfortable Eyes: PERRL, conjunctivae normal, anicteric sclerae EOM intact bilaterally ENMT: external ear and nose normal, oropharynx normal Neck: trachea midline, no thyromegaly normal visual inspection Respiratory: normal respiratory effort, lungs clear to auscultation normal respiratory effort Cardiovascular: Rate/Rhythm: regular rate and regular rhythm Gastrointestinal (Abdomen): normal bowel sounds, soft, nontender, no hepatosplenomegaly Musculoskeletal: Head/Neck/Chest: normocephalic and head atraumatic Neurologic: PERRL, EOMI, accommodation nl, no face palsy, no dysarthria moves all extremities Psychiatric: A+Ox3, euthymic affect Results & Data Results & Data ([facility]) Vital Signs (Past 12 Hours) Vital Signs Temp Pulse Pulse Resp BP Pulse Ox 02/12/20 11:38 37.0 C 84 18 120/70 96 02/12/20 08:00 76 02/12/20 07:28 36.8 C 68 18 107/63 97 02/12/20 04:22 36.9 C 72 20 102/62 99 (1) Anemia Anemia type: unspecified type Qualified Code(s): D64.9 - Anemia, unspecified
--- NOTE | 2020-02-12 12:38 | Discharge Summary ---
Date of Service February 12, 2020 Admission HPI Per Admitting Provider 69 yo man with feet swelling over the past two weeks. He has a h/o systolic heart failure 2/2 ischemic cardiomyopathy after a STEMI in early 2019. Per patient he was given a warning to always watch for any leg swelling and let someone know. He denies any pain in the legs and DVT was ruled out today with venous doppler. No edema in foot or legs. He also has metastatic prostate cancer to the bones and recently finished a course of XRT 3 weeks ago. He reports this did help some of his pain. He sees Dr Rao now and was given long and IR oxycodone to help his bone pain. She requested that he stop the fentanyl patch, however, family put this back on in the last few days and his pain has improved. Some increased stool burden present on imaging likely narcotic related. He admits to lateral abdominal pain for which he has devised a home remedy including a padded belt which adds pressure to certain points. He has a possible internal oblique hematoma where this belt hits, and this with aspirin may have caused this with the result of a lower H/H. He reports improving his oral intake of food and LOVES ice cream. He has otherwise been doing well. Son was at bedside and all questions answered to his and dad's satisfaction. I initially recommended follow-up with PCP, Dr. Moreno and Dr. Michelle jaime he didn't want to be admitted, however, this shouldn't be necessary as he decided he was ok with admission after all. 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 Discharge Exam Constitutional comfortable Eyes PERRL, conjunctivae normal, anicteric sclerae EOM intact bilaterally ENMT external ear and nose normal, oropharynx normal Neck trachea midline, no thyromegaly normal visual inspection Respiratory normal respiratory effort, lungs clear to auscultation normal respiratory effort Cardiovascular Rate/Rhythm: regular rate and regular rhythm Gastrointestinal (Abdomen) normal bowel sounds, soft, nontender, no hepatosplenomegaly Musculoskeletal Head/Neck/Chest: normocephalic and head atraumatic Neurologic PERRL, EOMI, accommodation nl, no face palsy, no dysarthria moves all extremities Psychiatric A+Ox3, euthymic affect Discharge Data Allergies Allergy/AdvReac Type Severity Reaction Status Date / Time Penicillins Allergy Mild Rash Verified 02/08/20 14:38 Consultations 02/08/20 18:04 ED Decision to Admit Stat 02/08/20 20:39 Consult Palliative Care Routine 02/08/20 20:43 Consult Case Management - Discharge Planning Routine 02/08/20 21:00 Consult Cardiology Routine 02/10/20 08:32 Consult Infectious Diseases Routine Ordered Studies 02/08/20 13:58 US venous doppler LE BI Stat 02/08/20 16:17 CT abd pelvis wo con Stat CT lumbar spine wo con Stat Hospital Course (1) Acute UTI: -urine culture was positive for gram negative bacilli and initially patient was on ceftriaxone, but then the urine culture speciated as Escherichia coli ESBL -currently on IV Ertapenem daily from 02/10/2020, blood cultures drawn on 02/10/2020 with no growth to date, patient received last dose of Ertapenem on 02/12/2020. Infectious Disease consult from [facility] supports transition to oral bactrim for discharge. -discharge medication sent electronically to [address] [address] for Bactrim twice a day for 11 more days starting on 02/13/2020 to finish antibiotic treatment for ESBL E.coli urinary tract infection -upcoming scheduled appointments with [facility] 02/17/2020 2:00 PM Provider Roseanne Morris MD Department General Internal Medicine [facility] 04/01/2020 12:40 PM Provider Roseanne Morris MD Department General Internal Medicine [facility] (2) Prostate cancer metastatic to bone: -Status post completion of palliative radiation therapy to the pelvis on 01/26/2020 -this admission CT Lumbar spine and abdomen/pelvis showed extensive osteoblastic metastatic disease, progressed from 11/18/2019. -Indeterminate 8 mm hypodense focus of the left hepatic lobe which appears to be new on this admission CT abdomen scan -Imaging finding discussed with Radiation Oncology Dr. Morris that does not plan to do another palliative radiation unless his pain is not controlled -previous hospitalist discussed with palliative care provider Dr. Rao that recommended to continue fentanyl patch, oxycodone at 30 mg every 12, as well as Decadron; Then 5 mg of oxycodone as needed if pain become severe while inpatient -discharge hospitalist discussed with patient's son that patient will follow up with Dr. Iyer of [facility] and also Dr. Moreno for pain medication needs in the context of cancer (3) Cancer related pain: -appears comfortable currently (4) Constipation: -patient reports constipation at home that has resolved on this admission -discharge medication of senna daily as new prescription (5) Abdominal pain, lower: admission CT abdomen 1. Asymmetric enlargement and heterogeneity of the left internal and external oblique muscles with possible intramuscular hematoma. 2. Extensive osteoblastic metastatic disease redemonstrated which appears to have progressed from 11/18/2019. No acute pathologic fracture identified. 3. Moderate fecal retention. 4. No bowel obstruction or bowel wall thickening. 5. Distended gallbladder with cholelithiasis. 6. Indeterminate 8 mm hypodense focus of the left hepatic lobe which appears to be new from comparison. -patient to follow up with [facility] Dr. Winn in regards to liver in context of cancer history -abdominal pain appears resolved at this time and could have been related to resolved constipation (6) Bilateral swelling of feet: -Doppler US was negative for clot in both legs. 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 -Continue home dose amiodarone (8) Ischemic cardiomyopathy: -Denies any chest pain -Troponin x 3 negative between 02/08/2020 to 02/09/2020 -Continue statin and aspirin (9) Weight loss: -Related to cancer -BOOST supplements with meals (10) Diabetes mellitus, type 2: Diabetes type 2 without longterm current use of insulin -was given Lantus and Novolog sliding scale while inpatient -can resume home dose metformin on discharge (11) Anemia: -Recent Cologard test was positive for occult blood, patient may pursue outpatient coloscopy based on PCP recommendations. -patient is on aspirin daily -blood counts with stable Hgb around 10 on this hospital admission (12) CVA (cerebral vascular accident): History of stroke in the past (not on this admission) -Continue medical management including ASA, statin. (13) DVT prophylaxis: -SCDs were given while inpatient, patient ambulatory Patient's son [phone] Total Time Total Time Spent Total Time Spent (In Minutes): 40 minutes Total Time Includes: Examination of the Patient, Discharge Planning, Medication Reconciliation and Communication With Other Providers Discharge Plan Discharge Items Patient Disposition: Home - Home Health Services Reason For Visit: INCREASED BACK PAIN,WORSENING ANEMIA,INCREASED SAGE Discharge Diagnosis: Acute UTI ( Escherichia coli ESBL) Prostate cancer metastatic to bone Cancer related pain Constipation Weight loss Anemia Diabetes type 2 without longterm current use of insulin Condition on Discharge: Good Activity: Resume your previous activity Non-emergency contact: Primary Care Provider, Specialist and Oncologist Call non-emergency contact if: you have any medication questions Follow-up/Referrals: Roseanne Morris MD [Primary Care Provider] - 02/17/20 2:00 pm (02/17/2020 2:00 PM Provider Roseanne Morris MD Department General Internal Medicine [facility] ) Diet: Carb Consistent or DM2 Diet Comment: Patient can take BOOST supplements with meals Eric Attending Provider Instructions: discharge medication sent electronically to [facility] [employer] [facility] [place] [address] for senna daily to prevent constipation Bactrim twice a day for 11 more days starting on 02/13/2020 to finish antibiotic treatment for ESBL E.coli urinary tract infection Discussed with patient's son that patient will follow up with Dr. Iyer of [facility] and also Dr. Moreno for pain medication needs in the context of cancer upcoming scheduled appointments with [facility] 02/17/2020 2:00 PM Provider Roseanne Morris MD Department General Internal Medicine [facility] 04/01/2020 12:40 PM Provider Roseanne Morris MD Department General Internal Medicine [facility] Add Wellness Instructor Provider Instructions: admission CT abdomen 1. Asymmetric enlargement and heterogeneity of the left internal and external oblique muscles with possible intramuscular hematoma. 2. Extensive osteoblastic metastatic disease redemonstrated which appears to have progressed from 11/18/2019. No acute pathologic fracture identified. 3. Moderate fecal retention. 4. No bowel obstruction or bowel wall thickening. 5. Distended gallbladder with cholelithiasis. 6. Indeterminate 8 mm hypodense focus of the left hepatic lobe which appears to be new from comparison. patient to follow up with [facility] Dr. Winn in regards to liver in context of cancer history Pending Studies at Discharge: No Stand-Alone Forms: [employer], Smoking Cessation Medications and DC Order Prescriptions: New sennosides [Senokot] 8.6 mg Tablet 8.6 mg PO QAM 30 Days Qty: 30 RF: 0 sulfamethoxazole-trimethoprim [Bactrim DS] 800-160 mg tablet 1 tab PO BID 11 Days Qty: 22 RF: 0 Continued Lupron Depot (3 month) 22.5 mg syringe kit 22.5 mg IM .q3 mo RF: 0 ondansetron HCl [Zofran] 8 mg tablet 8 mg PO Q8H PRN (Reason: Nausea And Vomiting) RF: 0 docusate sodium [Colace] 100 mg capsule 100 mg PO BID Qty: 14 RF: 0 metformin 500 mg tablet 500 mg PO QPM RF: 0 metformin 500 mg tablet 1,000 mg PO QAM RF: 0 amiodarone 200 mg tablet 100 mg PO QAM RF: 0 omeprazole 20 mg capsule,delayed release(DR/EC) 20 mg PO QAM RF: 0 aspirin 81 mg Tablet,Delayed Release (Dr/Ec) 81 mg PO QAM RF: 0 multivitamin with minerals Tablet 1 tab PO QAM RF: 0 dexamethasone 2 mg Tablet 2 mg PO DAILY RF: 0 fentanyl 75 mcg/hr patch 72 hour 1 patch transdermal Q72H RF: 0 oxycodone [OxyContin] 30 mg Tablet,Oral Only,Ext.Rel.12 Hr 30 mg PO Q12H RF: 0 oxycodone 5 mg tablet 5 mg PO Q8H PRN (Reason: Pain) RF: 0 furosemide 20 mg tablet 20 mg PO Q2D RF: 0 Discharge Orders: Discharge Order (Routine); Ordered 02/12/20 Ordered By: Walter Nunez Admission Data Admit Date/Time: 02/08/20 18:46 Attending Provider: Walter Nunez Admit Provider: Jasmin Davis Primary Care Provider: Roseanne Morris Other Providers: Jasmin Davis ; Ann-Marie Moreno ; Lele Gonzalez ; Colin Zavala ; Say Marr ; Simone Pantoja I. ; Braden Odom II ; Kasia Alford ; Ky Benitez ; [facility] Other Interventions: Discharge Summary Assessment (RN) Last Done: 02/10/20 13:41
--- NOTE | 2020-02-12 14:17 | Palliative Care Progress Note ---
Date of Service February 12, 2020 Assessment & Plan (1) Cancer related pain: Patient is known to me from outpatient palliative clinic. Patient was seen in clinic on 02/03/2020 for cancer related pain. Briefly patient is a 69-year-old male with a past medical history of prostate cancer diagnosed in 1999, status post prostatectomy and XRT. Several years later he was found to have widespread blastic mets to the bone and has been experiencing severe pain in his low back and pelvis. Pain is constant and will awaken him from sleep, repositioning does not help. Patient was on immediate release oxycodone and require numerous doses daily. Patient recently underwent XRT x15 fractions for several bone mets-this was completed on 01/26/2020. Patient was started on a fentanyl patch at 12 mcg and this was titrated up to 75 mcg- patient reports little effect-suspected that due to low subcu fat patient was not absorbing patch. Patient was started on OxyContin at 30 mg every 12, to continue PRN oxycodone. He was also started on Decadron at 2 mg daily for bone pain in place of prednisone. -Patient unable to give clear details of his pain management-spoke with patient's son, Laith, . He reported that they had discontinued the patch but patient's pain had increased, they replaced the patch on 02/05 at 11 AM-son reports patient slept well that evening as well as the following evening, however last evening patient was having severe pain in the lower extremity swelling which brought him to the emergency room. In the ER patient received IV morphine at 4 mg x 2 with good response. Since then patient has only required 2-3 PRN oxycodone in a 24-hour period, last dose was on 02/10 at 2243 -On exam patient reports he has no pain, feels "great, no pain"-son reports he frequently states that to medical personnel, however they see things differently when he is at home. -Collaborated with attending physician-would continue fentanyl patch, oxycodone at 30 mg every 12, as well as Decadron. Would recommend 5 mg of oxycodone as needed, if he were to have another episode of severe pain-would recommend 2-3 tabs PRN with a call to my office the following morning. -Patient with a positive UA as well as gram-negative bacillus on urine culture- has a history of Klebsiella UTI in the past. Patient's UTI may have triggered a pain crisis. - PPS 50% ECOG 2 (2) Prostate cancer metastatic to bone: (3) Pedal edema: (4) Acute UTI: Admission and Anticipated Discharge Date Admission Date: February 08, 2020 Subjective without assist in the room, no signs or symptoms of pain.Patient awake and alert, patient ambulating Patient denied pain on exam, he has not required a PRN oxycodone since last evening at 2243, he is only required 2-3 PRN doses during the day. Discussed with the patient that pain may increase with increased activity- instructed to follow-up with my office after discharge for continued pain management. Review of Systems Review of Systems: Patient denies pain, fever, chills, chest pain, shortness of breath, or abdominal pain Physical Exam Physical Exam: PE: Patient ambulating in the room, packing up his belongings for anticipated discharge HEENT: EOMI Respirations: Unlabored, clear breath sounds bilaterally CV: Regular rate, no edema Abdomen: Soft, nontender, not distended Extremities: Full range of motion Neuro: Normal strength Results & Data ([facility]) Vital Signs (Past 12 Hours) Vital Signs Temp Pulse Pulse Resp BP BP Pulse Ox 02/12/20 13:48 98.6 F 84 18 120/70 104/67 96 02/12/20 11:38 98.6 F 84 18 120/70 96 02/12/20 08:00 76 02/12/20 07:28 98.2 F 68 18 107/63 97 02/12/20 04:22 98.4 F 72 20 102/62 99 PG Care Time/CCT Total # of Minutes Spent Total Time Spent with Patient: Total time spent 35 minutes with greater than 50% of the time assessing patient's current pain control as well as instructing on pain management after discharge Coding Level of Care Code 77997 Subseq Hosp Care Lvl 3 Diagnoses Cancer related pain G89.3 Prostate cancer metastatic to bone C61; C79.51 Pedal edema R60.0 Acute UTI N39.0 Time Spent (min) 35
== END 2020-02-12 16:49 | disposition home health service (06) | DRG 690 ==
LOC: ED 13:33 → SUATTDRO 18:46 → 2N 18:46

== ENCOUNTER 2020-03-15 17:00 | Observation (INO) ==
[2020-03-15] MEDS ORDERED: ASPIRIN CHEW 324 MG PO STA (17:39)
[2020-03-15] MEDS ORDERED: SODIUM CHLORIDE 0.9% 1000ML 1,000 ML IV ONE (17:39)
--- NOTE | 2020-03-15 17:39 | Emergency Department Note ---
Impression & Plan Chest pain, Anemia, Acute hyponatremia, D-dimer, elevated, Abnormal ECG ED Provider Note NAME: MARTÍNEZ WRIGHT AGE: 69 SEX: M : 1950 ARRIVES VIA: Walk-In INFORMANT: Patient, son ED PROVIDER(S): Jimmy Richmond DO CHIEF COMPLAINT: Chest pain HPI: Patient is a 69-year-old male with a past medical history of ischemic cardiomyopathy, diabetes, metastatic prostate cancer presents the ER for midsternal chest pain. Is located over the left side and radiated to the right. Went to both arms and both jaws. Lasted for about 20 to 30 minutes. Uncertain if there was truly shortness of breath. He has a history of a stroke and is very forgetful as he does have now a fentanyl patch on for the past week which has been increased and since then he has been more confused. He denies any belly pain dysuria urgency or frequency. No headache. No other exacerbating or remitting factors. ROS: See above HPI for pertinent positives & negatives. A total of 10 systems reviewed and were otherwise negative. PAST MEDICAL HISTORY:See Below PAST SURGICAL HISTORY:See Below FAMILY HISTORY:See Below SOCIAL HISTORY:See Below HOME MEDICATIONS:See Below ALLERGIES:See Below VITALS:See Below PHYSICAL EXAMINATION: GENERAL: Sitting up in bed, alert, chronically ill-appearing, disheveled, cachectic with bruising on upper extremities EYE EXAM: normal conjunctiva. PERRL and EOM's grossly intact. OROPHARYNX: no exudate, no erythema, lips, buccal mucosa, and tongue normal and mucous membranes are moist NECK: supple, no nuchal rigidity, no adenopathy, non-tender LUNGS: Clear to auscultation. Normal chest wall mechanics HEART: no murmurs, S1 normal and S2 normal ABDOMEN: abdomen soft, non-tender, normo-active bowel sounds, no masses, no rebound or guarding. BACK: Back is symmetrical on inspection and there is no deformity, no midline tenderness, no CVA tenderness. UPPER EXTREMITIES: upper extremities are grossly normal. LOWER EXTREMITIES: No pitting edema. NEURO EXAM: Normal sensorium, cranial nerves II-XII grossly intact, normal speech, no gross weakness of arms, no gross weakness of legs. MEDICAL DECISION MAKING: Patient is a 69-year-old male who presents the ER for chest pain. He has a past medical history of prostate cancer. Pain started in the middle of his chest and radiated out to bilateral arms and neck. He had no shortness of breath with this. Lasted for about 20 minutes. He does not remember this but the son was present who talked him through this entire course. IV was established and blood work was obtained. Labs show no significant leukocytosis. Mild anemia 11. INR was unremarkable. D-dimer was significantly elevated consequently CT Ahrper of the chest was performed which showed no clots. BMP with mild hyponatremia. LFTs bilirubin and troponin was negative. Lipase was normal. EKG did have some new findings in the lateral leads in comparison to previous as I believe it to be slightly worse. As he is unable to give a complete history had a long conversation with son at bedside due to the extent of the work-up that they want. They would want him to be observed overnight for monitoring. Discussed with hospitalist for further evaluation. Triage Nursing notes reviewed. Prior medical records reviewed Vital Signs: reviewed and remarkable for hypotension Differential diagnosis: Differential diagnoses includes but is not limited to acute coronary syndrome, myocardial infarction, pericarditis, pulmonary embolus, aortic dissection, pneumonia, pneumothorax, musculoskeletal, shingles, esophageal. ER treatment provided: See below Diagnostics interpreted by me: ECG: Sinus rhythm rate 84 Left axis Inferior Q waves Nonspecific ST wave changes in the lateral leads Normal QTC Cardiac Monitoring: An order was placed for continuous cardiac monitoring. The monitor shows a rate of 80 with sinus rhythm. Laboratory studies: As stated above and show below. Imaging studies: CT angios of the chest was unremarkable Consultation(s): Discussed with Dr. Cosme for further evaluation ED COURSE: Procedures: none Critical Care: None Past Med/Surg History Medical History (Updated 03/15/20 @ 22:57 by Jimmy Richmond DO) Abdominal pain, lower Acute UTI Back pain Bone metastases Cardiac arrhythmia Depression Diabetes mellitus, type 2 History of kidney stones Hyperlipidemia Hypertension Myocardial Infarction 06/2019--was taken to [facility] in [place] (had a stroke as well), did not have a heart cath/heart surgery--follows with Dr. Iyer at [facility], no blood thinners Prostate cancer 1999--bone metastases---sx/radiation/chemo Surgical History History of colonoscopy History of prostate biopsy malignant History of tooth extraction History of wisdom tooth extraction Hx of prostatectomy S/P cystourethroscopy with dilation of urethral stricture Family History Mother , age 99 old age Diabetes Father , age 78 prostate ca Prostate cancer Brother , liver cancer No problems noted. Brother No problems noted. Brother No problems noted. Brother No problems noted. Sister No problems noted. Sister No problems noted. Sister No problems noted. Son No problems noted. Daughter No problems noted. 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 Other Information That Helps Us Care for You: No Feels Safe at Home: Yes Safety Concerns: Feels Safe At This Time Childhood Exposure to Second-Hand Smoke: No Diet Comment: low carbs for diabetes management caffeine: Yes (2 cups per day) during the past year weight has: decreased > 10 lbs Dental Care, Regularly: Yes Physical Activity Frequency: Does not Exercise Seatbelt Use: always Sunscreen Use: Yes Assistive Devices: Walker Allergies Allergies Allergy/AdvReac Type Severity Reaction Status Date / Time Penicillins Allergy Mild Rash Verified 03/15/20 18:40 Home Meds Home Medications Medication Instructions Recorded Confirmed amiodarone 100 mg PO QAM 11/07/19 03/15/20 metformin 1,000 mg PO QAM 11/07/19 03/15/20 metformin 500 mg PO QPM 11/07/19 03/15/20 aspirin 81 mg PO QAM 11/08/19 03/15/20 leuprolide (3 month) 22.5 mg (3 22.5 mg IM .[id number] ea 12/02/19 03/15/20 month) intramuscular syringe kit oxycodone [OxyContin] 30 mg PO Q12H 02/08/20 03/15/20 mirtazapine 15 mg PO HS 03/04/20 03/15/20 omeprazole 20 mg PO QAM 03/04/20 03/15/20 prochlorperazine maleate 10 mg PO Q6H PRN 03/04/20 03/15/20 acetaminophen 500 - 1,000 mg PO Q6H PRN 03/15/20 03/15/20 dexamethasone 2 mg PO DAILY 03/15/20 03/15/20 fentanyl 100 mcg TOPICAL [id number] 03/15/20 03/15/20 furosemide 20 mg PO Q2D 03/15/20 03/15/20 [id number] 1 tab PO QAM 03/15/20 03/15/20 [Centrum Silver] oxycodone 5 mg PO .Q4-6HRS PRN 03/15/20 03/15/20 Previous Rx's Medication Instructions Recorded docusate sodium [Colace] 100 mg PO BID #14 cap 11/18/19 Results & Data (ED) Vital Signs Vital Signs - 24 hr 03/15/20 17:11 03/15/20 18:54 03/15/20 20:29 Pulse Rate 86 Pulse Rate [Apical] 80 82 Respiratory Rate 18 18 18 Respiratory Effort / Characteristics Non-Labored Spontaneous Respiratory Depth Normal Respiratory Pattern Regular Blood Pressure 98/63 L Blood Pressure [Right Arm] 128/81 114/69 Blood Pressure Mean 74 Blood Pressure Mean [Right Arm] 96 84 Blood Pressure Position Sitting Pulse Oximetry 97 98 98 Oxygen Delivery Method Room Air Room Air Room Air Sepsis Recent Fever Within 48 Hours No Sepsis New/Unexplained Change in Mental Status N/A Sepsis Action Taken by Nursing No Action Required Laboratory Data Result diagrams: 03/15/20 17:40 03/15/20 17:40 Lab Results 03/15/20 03/15/20 03/15/20 Range/Units 17:40 17:40 17:40 WBC 5.09 (4.8-10.8) K/uL RBC 3.69 L (4.7-6.1) M/uL Hgb 11.0 L (14.0-18.0) g/dL Hct 34.1 L (42-52) % MCV 92.4 (80-100) fL MCH 29.8 (25-34) pg MCHC 32.3 (32-36) g/dL RDW Std Deviation 50.5 H (36.4-46.3) fL RDW Coeff of Jesus 14.9 H (11.5-14.5) % Plt Count 199 (130-400) K/uL MPV 8.2 (7.4-10.4) fL Immature Gran % (Auto) 0.8 % Neut % (Auto) 74.5 % Lymph % (Auto) 8.8 % [place] % (Auto) 14.5 % Eos % (Auto) 1.0 % Baso % (Auto) 0.4 % Neut # (Auto) 3.79 (1.4-6.5) K/uL Lymph # (Auto) 0.45 L (1.2-3.4) K/uL [place] # (Auto) 0.74 H (0.11-0.59) K/uL Eos # (Auto) 0.05 (0-0.5) K/uL Baso # (Auto) 0.02 (0-0.2) K/uL Immature Gran # (Auto) 0.04 H (0.00-0.02) K/uL PT 12.2 H (9.0-12.0) Seconds INR 1.2 H (0.9-1.1) APTT 30.8 (21.0-31.0) Seconds PTT Ratio 1.1 D-Dimer > 73201 H* (0-500) ug/L FEU Sodium 134 L (136-145) mmol/L Potassium 4.3 (3.5-5.1) mmol/L Chloride 97 L (98-107) mmol/L Carbon Dioxide 29 (21-32) mmol/L Anion Gap 8.0 (3-11) BUN 18 (7-18) mg/dl Creatinine 0.71 (0.6-1.4) mg/dl Est Cr Clr Drug Dosing 78.1 ml/min Est GFR ( Amer) 110.2 Est GFR (Non-Af Amer) 95.1 BUN/Creatinine Ratio 24.8 H (10-20) Glucose 121 H (70-99) mg/dl Calcium 8.9 (8.5-10.1) mg/dl Total Bilirubin 0.3 (0.2-1) mg/dl AST 65 H (15-37) U/L ALT 27 (12-78) U/L Alkaline Phosphatase 1327 H (45-117) U/L Troponin I < 0.015 (0-0.045) ng/ml Total Protein 7.1 (6.4-8.2) gm/dl Albumin 3.2 L (3.4-5.0) gm/dl Globulin 3.9 (2.5-4.0) gm/dl Albumin/Globulin Ratio 0.8 L (0.9-2) Lipase 58 L (73-393) U/L Administered Medications Docusate Sodium (Docusate Sodium 100 Mg Cap) 100 mg PO BID ELIANE Stop: 04/14/20 22:11 Last Admin: 03/15/20 22:40 Dose: 100 mg Documented by: [id number] Insulin Aspart (Insulin Aspart 100 Units/Ml 3 Ml Pen) 0 units SC Q6 ELIANE Stop: 04/14/20 22:44 Last Admin: 03/15/20 22:50 Dose: Not Given Documented by: [id number] Cosigned by: [id number] Mirtazapine (Mirtazapine Tab 15 Mg Tab) 15 mg PO HS ELIANE Stop: 04/14/20 22:11 Last Admin: 03/15/20 22:39 Dose: 15 mg Documented by: [id number] Miscellaneous (Check Fentanyl Patch Placement) 1 ea N/A QS ELIANE Stop: 04/14/20 22:44 Last Admin: 03/15/20 22:40 Dose: 1 ea Documented by: [id number] Oxycodone HCl (Oxycodone Hcl 15 Mg Tabcr (Oxycontin)) 30 mg PO BID ELIANE Stop: 03/29/20 22:29 Last Admin: 03/15/20 22:39 Dose: 30 mg Documented by: [id number] Discontinued Medications Aspirin (Aspirin Chew 324 Mg) 324 mg PO NOW STA Stop: 03/15/20 17:40 Last Admin: 03/15/20 17:53 Dose: 324 mg Documented by: [id number] Sodium Chloride (Nss 1000ml) 1,000 mls @ 999 mls/hr IV .Q1H1M ONE Stop: 03/15/20 18:39 Last Infusion: 03/15/20 18:56 Dose: 0 mls/hr Documented by: [id number] Admin: 03/15/20 17:53 Dose: 999 mls/hr Documented by: [id number] Ioversol (Optiray 320 125ml) 119 ml IV ONCE ONE Stop: 09/21/20 18:40 Last Admin: 03/15/20 18:39 Dose: 119 ml Documented by: [id number] Discharge Plan Visit Data Chief Complaint: Chest Pain Stated Complaint: chest pain, going down left arm, neck pain ED Provider: Jimmy Richmond Discharge Problem: Chest pain, Anemia, Acute hyponatremia, D-dimer, elevated, Abnormal ECG Patient Disposition: Admitted As Inpatient Discharge Instructions Interventions: ED Discharge Assessment Last Done: 03/15/20 21:40 Discharge Problem: Chest pain Qualifiers: Chest pain type: unspecified Qualified Code(s): R07.9 - Chest pain, unspecified Anemia Qualifiers: Anemia type: unspecified type Qualified Code(s): D64.9 - Anemia, unspecified
[2020-03-15 17:55] LABS: Basophils # (auto) 0.02 K/uL (0-0.2); Basophils % (auto) 0.4 %; Eosinophils # (auto) 0.05 K/uL (0-0.5); Hematocrit (blood only) 34.1 % (42-52); Immature Granulocytes # (auto) 0.04 K/uL (0.00-0.02); Immature Granulocytes % (auto) 0.8 %; Lymphocytes # (auto) 0.45 K/uL (1.2-3.4); Lymphocytes % (auto) 8.8 %; Mean Corpuscular Hemoglobin 29.8 pg (25-34); Mean Corpuscular Hgb Conc 32.3 g/dL (32-36); Mean Corpuscular Volume 92.4 fL (80-100); Mean Platelet Volume 8.2 fL (7.4-10.4); Monocytes # (auto) 0.74 K/uL (0.11-0.59); Monocytes % (auto) 14.5 %; Neutrophils # (auto) 3.79 K/uL (1.4-6.5); Neutrophils % (auto) 74.5 %; Platelet Count 199 K/uL (130-400); RDW Coefficient of Variation 14.9 % (11.5-14.5); RDW Standard Deviation 50.5 fL (36.4-46.3); Red Blood Count 3.69 M/uL (4.7-6.1); White Blood Count 5.09 K/uL (4.8-10.8)
--- NOTE | 2020-03-15 18:09 | XRay Report ---
SINGLE VIEW CHEST CLINICAL HISTORY: Atypical chest pain. FINDINGS: An AP, portable, upright chest radiograph is compared to study dated 02/08/2020 and correlat ed with chest CT dated 03/09/2020. The examination is degraded by portable technique and patient rotat ion. The cardiomediastinal silhouette is unremarkable. Chronic interstitial thickening and foci of parenchymal nodularity are similar to previous. There is no airspace consolidation or large pleural e ffusion. No pneumothorax is seen. The skeletal structures are osteopenic. The bony thorax is grossly intact. Findings multifocal osteoblastic metastatic disease are similar to previous. IMPRESSION: 1. No acute cardiopulmonary abnormality. 2. Findings of multifocal osteoblastic metastatic disease are similar to previous. ACT 112: Negative or not required by law. Electronically signed by: Angel Ham M.D. 03/15/2020 6:07 PM
[2020-03-15 18:13] LABS: INR 1.2 (0.9-1.1); Partial Thromboplastin Ratio 1.1; Partial Thromboplastin Time 30.8 Seconds (21.0-31.0); Prothrombin Time 12.2 Seconds (9.0-12.0)
[2020-03-15 18:14] LABS: Alanine Aminotransferase 27 U/L (12-78); Albumin Level 3.2 gm/dl (3.4-5.0); Aspartate Aminotransferase 65 U/L (15-37); BUN Creatinine Ratio 24.8 (10-20); Blood Urea Nitrogen 18 mg/dl (7-18); Calcium 8.9 mg/dl (8.5-10.1); Carbon Dioxide 29 mmol/L (21-32); Chloride 97 mmol/L (98-107); Creatinine Clr Calc Pharmacy 78.1 ml/min; Est GFR (African American) 110.2; Est GFR (Non-African American) 95.1; Glucose 121 mg/dl (70-99); Lipase 58 U/L (73-393); Potassium 4.3 mmol/L (3.5-5.1); Sodium 134 mmol/L (136-145)
[2020-03-15 18:26] LABS: D Dimer > 35200 ug/L FEU (0-500)
[2020-03-15 18:28] LABS: Albumin Globulin Ratio 0.8 (0.9-2); Alkaline Phosphatase 1327 U/L (45-117); Bilirubin,Total 0.3 mg/dl (0.2-1); Globulin 3.9 gm/dl (2.5-4.0); Total Protein 7.1 gm/dl (6.4-8.2); Troponin I < 0.015 ng/ml (0-0.045)
[2020-03-15] MEDS ORDERED: OPTIRAY 320 125ml IV ONE (18:39)
--- NOTE | 2020-03-15 19:11 | CT Scan Report ---
CT ANGIOGRAM OF THE CHEST CLINICAL HISTORY: Left-sided chest pain. COMPARISON STUDY: Chest x-ray dated 03/15/2020. Chest CT dated 03/09/2020. TECHNIQUE: Following the IV administration of 119 cc of Optiray 320, CT angiogram of the chest was pe rformed from the upper abdomen to the thoracic inlet utilizing the pulmonary embolus protocol. Images are reviewed in the axial, sagittal, and coronal planes. 3-D MIPS images are created and assessed. I V contrast was administered without complication. A dose lowering technique was utilized adhering to the principles of ALARA. CT DOSE: 357.20 mGycm FINDINGS: Thyroid: Imaged portions of the thyroid gland are normal in size and attenuation. Thoracic aorta: There is atherosclerotic calcification of the thoracic aorta, which is normal in luis saray and demonstrates standard 3-vessel arch anatomy. No dissection is seen. Pulmonary vasculature: The pulmonary trunk is normal in caliber. There are no filling defects identif ied in main, lobar, or segmental pulmonary branches to suggest pulmonary embolus. Heart: The heart is normal in size and without pericardial effusion. The coronary arteries are densel y calcified. Lungs and pleural spaces: Evaluation of the lung parenchyma is modestly degraded by motion artifact. There is no airspace consolidation typical for pneumonia. Trace pleural effusions are noted. The trac hea and central airways are clear. Foci of scarring/atelectasis are present at the lung bases. Mediastinum: There is no mediastinal lymphadenopathy. Cyndi: Clear. Axillae: There is no axillary lymphadenopathy. Upper abdomen: Partially visualized upper abdominal viscera is within normal limits. Skeletal structures: The skeletal structures are osteopenic. Findings of extensive osteoblastic metas tatic disease are unchanged from 03/09/2020. IMPRESSION: 1. There is no evidence of pulmonary embolus in the main, lobar, or segmental pulmonary arteries. 2. There is no airspace consolidation typical for pneumonia. 3. Trace pleural effusions. 4. Findings of extensive osteoblastic metastatic disease are similar to previous. ACT 112: Negative or not required by law. Electronically signed by: Angel Ham M.D. 03/15/2020 7:10 PM
[2020-03-15] MEDS ORDERED: ACETAMINOPHEN 325 MG TAB PO PRN (22:12)
[2020-03-15] MEDS ORDERED: NITROGLYCERIN SL 0.4 MG/TAB TAB SL PRN (22:12)
[2020-03-15] MEDS ORDERED: OXYCODONE HCL IR 5 MG TAB (IMMEDIATE RELEASE) PO PRN (22:12)
[2020-03-15] MEDS ORDERED: ONDANSETRON INJ 2 MG/ML 2 ML VIAL IV PRN (22:12)
[2020-03-15] MEDS ORDERED: PROCHLORPERAZINE MALEATE 10 MG TAB PO PRN (22:12)
[2020-03-15] MEDS ORDERED: MIRTAZAPINE TAB 15 MG TAB PO SCH (22:12)
[2020-03-15] MEDS ORDERED: GLUCOSE 40% GEL 15 GM TUBE PO PRN (22:30)
[2020-03-15] MEDS ORDERED: GLUCAGON FOR INJ 1 MG VIAL IM PRN (22:30)
[2020-03-15] MEDS ORDERED: CARBOHYDRATES FOR HYPOGLYCEMIA PO PRN (22:30)
[2020-03-15] MEDS ORDERED: DEXTROSE 50% 50 ML SYRINGE IV PRN (22:30)
[2020-03-15] MEDS ORDERED: GLUCOSE 10 TABS/TUBE PO PRN (22:30)
[2020-03-15] MEDS: OXYCODONE HCL 15 MG TABCR (OXYCONTIN) PO SCH (22:39)
--- NOTE | 2020-03-15 22:39 | History and Physical Report ---
DATE OF ADMISSION: 03/15/2020 CHIEF COMPLAINT: Chest pain. HISTORY OF PRESENT ILLNESS: This is a 69-year-old male with past medical history significant for metastatic prostate cancer, history of systolic CHF, hx of ST elevated AK in early 2019, type 2 diabetes, hyperlipidemia, protein-calorie malnutrition, who lives with his family, presents due to chest pain. The patient was about to eat his supper, when suddenly complained of chest pain holding his hand in the chest and pain radiates to back of the neck and also left arm, which prompted the family to bring the patient to the hospital. By the time they brought him to the hospital, the pain tapered off. Currently resting comfortable and hemodynamically stable. His initial EKG and troponins are okay. Currently, no chest pain. Denies any shortness of breath. No cough, no fever, no chills. No headache, no dizziness. No blurred vision, no earache, no runny nose, no sore throat, no dysphagia. No nausea, no sweating, no abdominal pain. Normal bowel and bladder movements. Ambulates with the support. ALLERGIES: TO LIPITOR, PENICILLIN. PAST MEDICAL HISTORY: As mentioned above. PAST SURGICAL HISTORY: Bladder surgery, cataract surgery, radical removal of the prostate. MEDICATIONS: Currently the patient is on Tylenol 500-1000 mg p.o. q. 6 hours p.r.n., amiodarone 100 mg p.o. a.m., aspirin 81 mg p.o. a.m., dexamethasone 10 mg p.o. daily, Colace 100 mg p.o. b.i.d., fentanyl 100 mcg topical q. 72 hours, Lasix 20 mg every other day, Lupron shots every 3 months, metformin 500 mg p.m. and 1000 mg a.m., Remeron 15 mg p.o. at bedtime, multivitamins with minerals 1 tablet daily, omeprazole 20 mg p.o. daily, oxycodone 5 mg p.o. q. 4-6 hours p.r.n., OxyContin 30 mg p.o. b.i.d., prochlorperazine 10 mg p.o. q. 6 hours p.r.n. FAMILY HISTORY: Significant for father had prostate cancer, mother has diabetes, brother has diabetes. SOCIAL HISTORY: , lives with his . No smoking. Alcohol rarely. No drug use. REVIEW OF SYMPTOMS: As per HPI. Rest of review of symptoms negative. PHYSICAL EXAMINATION: GENERAL: The patient is thin and frail, not in acute distress. VITAL SIGNS: Temperature afebrile, pulse 82, respiratory rate 18, blood pressure 114/69, oxygen 98% on room air. HEENT: No pallor, no icterus. Pupils equal, round, reactive to light. Oral mucosa moist. NECK: No JVD, no neck masses. CARDIOVASCULAR SYSTEM: S1, S2 heard. Regular rate and rhythm. No murmur, no gallop. RESPIRATORY SYSTEM: Normal AP diameter. No accessory muscle use. No wheezing, no crackles. ABDOMEN: Soft, bowel sounds present, nontender. No distention. CENTRAL NERVOUS SYSTEM: Alert and oriented. Cranial nerves II-XII grossly intact. Nonfocal. EXTREMITIES: No edema, no erythema. LABORATORY DATA: WBC 5, hemoglobin 11, hematocrit 34.1, platelets 199. PT 12.2, INR 1.2, APTT 38. D-dimer greater than 35,000. Sodium 134, potassium 4.3, chloride 97, bicarb 29, BUN 18, creatinine 0.7, serum glucose 121, calcium 8.9. Total bilirubin 0.3, AST 65, ALT 27, alkaline phosphatase 1327. Troponin I less than 0.015. Lipase 58. Chest x-ray: No acute cardiopulmonary abnormality. CTA of the chest: No evidence of pulmonary embolus in the main lobar segmental pulmonary arteries. There is no airspace consolidation typical for pneumonia and trace pleural effusions. Findings of extensive osteoblastic metastatic disease are similar to previous. EKG: Normal sinus rhythm, rate of 84, nonspecific T-wave abnormality, no acute ST changes seen. ASSESSMENT AND PLAN: This is a 69-year-old male presents with chest pain. 1. Chest pain, could be from his metastatic disease. D-dimer is elevated, but on CTA chest no PE. Initial workup, troponin and EKG unremarkable. Follow the serial enzymes, echocardiogram. We will keep him n.p.o. after midnight and consult Cardiology in a.m. for further recommendations. 2. Metastatic prostate cancer, followed by Hem-Onc and radiation oncologist. 3. Chronic pain. Continue his home pain medications. 4. Gastroesophageal reflux disease. Continue omeprazole. 5. Diabetes. Hold his metformin, place on insulin sliding scale. 6. Depression. Continue Remeron. 7. Hx of monomorphic v tach. Continue home dose of amiodarone. 8. History of CHF. Continue his home Lasix since . seems stable. 9.. History of anemia. Hemoglobin seems stable. We will follow the labs. 10. History of CVA, on aspirin and statin. 11. Deep vein thrombosis prophylaxis, SCDs. DISPOSITION: Observe in med/tele. PT and OT prior to discharge. Expect to discharge home and follow with family doctor. Social Service to help with discharge planning. Code status level 1 full code only if there is chance of recovery. MTDD
[2020-03-15] MEDS: DOCUSATE SODIUM 100 MG CAP PO SCH (22:40)
[2020-03-15] MEDS: CHECK FENTANYL PATCH PLACEMENT SCH (22:40)
[2020-03-15] MEDS: INSULIN ASPART 100 UNITS/ML 3 ML PEN SC SCH (22:50)
[2020-03-16 06:10] LABS: Basophils # (auto) 0.01 K/uL (0-0.2); Basophils % (auto) 0.3 %; Eosinophils # (auto) 0.02 K/uL (0-0.5); Eosinophils % (auto) 0.5 %; Hematocrit (blood only) 29.9 % (42-52); Hemoglobin 9.7 g/dL (14.0-18.0); Immature Granulocytes # (auto) 0.03 K/uL (0.00-0.02); Immature Granulocytes % (auto) 0.8 %; Lymphocytes # (auto) 0.38 K/uL (1.2-3.4); Lymphocytes % (auto) 9.8 %; Mean Corpuscular Hemoglobin 29.8 pg (25-34); Mean Corpuscular Hgb Conc 32.4 g/dL (32-36); Mean Platelet Volume 8.6 fL (7.4-10.4); Monocytes # (auto) 0.69 K/uL (0.11-0.59); Monocytes % (auto) 17.8 %; Neutrophils # (auto) 2.74 K/uL (1.4-6.5); Neutrophils % (auto) 70.8 %; Platelet Count 180 K/uL (130-400); RDW Coefficient of Variation 15.1 % (11.5-14.5); RDW Standard Deviation 51.1 fL (36.4-46.3); Red Blood Count 3.25 M/uL (4.7-6.1); White Blood Count 3.87 K/uL (4.8-10.8)
[2020-03-16] MEDS: INSULIN ASPART 100 UNITS/ML 3 ML PEN SC SCH ×2 (06:28→12:17)
[2020-03-16 06:35] LABS: Blood Urea Nitrogen 15 mg/dl (7-18); Carbon Dioxide 28 mmol/L (21-32); Chloride 106 mmol/L (98-107); Est GFR (African American) 123.3; Est GFR (Non-African American) 106.4; Potassium 3.8 mmol/L (3.5-5.1); Sodium 140 mmol/L (136-145)
[2020-03-16 06:36] LABS: BUN Creatinine Ratio 28.5 (10-20); Calcium 8.3 mg/dl (8.5-10.1); Creatinine Clr Calc Pharmacy 104.8 ml/min; Glucose 85 mg/dl (70-99); Magnesium 2.2 mg/dl (1.8-2.4)
[2020-03-16 06:41] LABS: Troponin I < 0.015 ng/ml (0-0.045)
[2020-03-16 08:34] LABS: Estimated Average Glucose 137 mg/dl; Hemoglobin A1C 6.4 % (4.5-5.6)
[2020-03-16] MEDS: CHECK FENTANYL PATCH PLACEMENT SCH ×2 (08:44→15:33)
[2020-03-16] MEDS: OXYCODONE HCL 15 MG TABCR (OXYCONTIN) PO SCH (08:44)
[2020-03-16] MEDS: DOCUSATE SODIUM 100 MG CAP PO SCH (08:45)
[2020-03-16] MEDS ORDERED: AMIODARONE 200 MG TAB PO SCH (09:00)
[2020-03-16] MEDS ORDERED: dexAMETHasone 1 MG TAB PO SCH (09:00)
[2020-03-16] MEDS ORDERED: CEROVITE ADV FORMULA TAB PO SCH (09:00)
[2020-03-16] MEDS ORDERED: fentaNYL 100 MCG/HR TDSY TD SCH (09:00)
[2020-03-16] MEDS ORDERED: PANTOprazole 40 MG TAB PO SCH (09:00)
[2020-03-16] MEDS ORDERED: FUROSEMIDE 20 MG TAB PO SCH (09:00)
[2020-03-16] MEDS ORDERED: ASPIRIN 81 MG ECTAB PO SCH (09:00)
--- NOTE | 2020-03-16 10:20 | Cardiology Consultation ---
Date of Consultation Patient has no chest discomfort this morning. He cannot remember having chest discomfort yesterday. He is unsure whether it was associated with food or after a meal. He denies any shortness of breath. Denies any lightheadedness or dizziness. He feels like he is back to his baseline. His memory does not seem as good as it was when I last saw him a month ago. His appetite is been poor he notes his weight continues to decline. He has diffuse musculoskeletal discomfort. The rest of a complete her systems otherwise negative March 16, 2020 History of Present Illness Attending Physician: Lynda Hess MD Allergies Allergy/AdvReac Type Severity Reaction Status Date / Time Penicillins Allergy Mild Rash Verified 03/15/20 18:40 Home Medications Home Medications Medication Instructions Recorded Confirmed Type amiodarone 100 mg PO QAM 11/07/19 03/15/20 History metformin 1,000 mg PO QAM 11/07/19 03/15/20 History metformin 500 mg PO QPM 11/07/19 03/15/20 History aspirin 81 mg PO QAM 11/08/19 03/15/20 History docusate sodium [Colace] 100 mg PO BID #14 cap 11/18/19 03/15/20 Rx leuprolide (3 month) 22.5 mg (3 22.5 mg IM .[id number] ea 12/02/19 03/15/20 History month) intramuscular syringe kit oxycodone [OxyContin] 30 mg PO Q12H 02/08/20 03/15/20 History mirtazapine 15 mg PO HS 03/04/20 03/15/20 History omeprazole 20 mg PO QAM 03/04/20 03/15/20 History prochlorperazine maleate 10 mg PO Q6H PRN 03/04/20 03/15/20 History acetaminophen 500 - 1,000 mg PO Q6H PRN 03/15/20 03/15/20 History dexamethasone 2 mg PO DAILY 03/15/20 03/15/20 History fentanyl 100 mcg TOPICAL [id number] 03/15/20 03/15/20 History furosemide 20 mg PO Q2D 03/15/20 03/15/20 History otrhtnygmdym-zqwqkgff-joxzeo 1 tab PO QAM 03/15/20 03/15/20 History [Centrum Silver] oxycodone 5 mg PO .Q4-6HRS PRN 03/15/20 03/15/20 History Patient History Medical History Abdominal pain, lower Acute UTI Back pain Bone metastases Cardiac arrhythmia Depression Diabetes mellitus, type 2 History of kidney stones Hyperlipidemia Hypertension Myocardial Infarction 06/2019--was taken to [facility] in [place] (had a stroke as well), did not have a heart cath/heart surgery--follows with Dr. Iyer at [facility], no blood thinners Prostate cancer 1999--bone metastases---sx/radiation/chemo Surgical History History of colonoscopy History of prostate biopsy malignant History of tooth extraction History of wisdom tooth extraction Hx of prostatectomy S/P cystourethroscopy with dilation of urethral stricture Family History Mother , age 99 old age Diabetes Father , age 78 prostate ca Prostate cancer Brother , liver cancer No problems noted. Brother No problems noted. Brother No problems noted. Brother No problems noted. Sister No problems noted. Sister No problems noted. Sister No problems noted. Son No problems noted. Daughter No problems noted. 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 Other Information That Helps Us Care for You: No Feels Safe at Home: Yes Safety Concerns: Feels Safe At This Time Childhood Exposure to Second-Hand Smoke: No Diet Comment: low carbs for diabetes management caffeine: Yes (2 cups per day) during the past year weight has: decreased > 10 lbs Dental Care, Regularly: Yes Physical Activity Frequency: Does not Exercise Seatbelt Use: always Sunscreen Use: Yes Assistive Devices: None Results & Data ([facility]) Vital Signs (Past 12 Hours) Vital Signs Temp Pulse Pulse Resp BP Pulse Ox 03/16/20 07:40 37.0 C 79 18 109/62 91 03/16/20 04:50 37.6 C H 03/16/20 03:56 38.2 C H 107 H 20 147/88 H 94 03/16/20 00:45 70 03/16/20 00:00 36.8 C 74 17 109/68 94 He is awake alert and oriented x3 he does look cachectic. His memory seems worse than month ago when I saw him H EENT 2+ carotid upstrokes no evidence of carotid bruits jugular venous pressure appeared normal Lungs: Clear to auscultation bilaterally no rales rhonchi or wheezing Heart regular rate and rhythm no appreciable murmurs rubs or gallops Abdomen soft nontender distended positive bowel sounds Extremities no clubbing cyanosis or edema Psychiatric: His affect appeared normal Impressions: 1. Chest pain likely noncardiac with negative troponins x2 and subtle anterior lateral ST depression 2. Metastatic prostate cancer with significant osteoblastic lesions and chronic pain on imaging 3. Three-vessel coronary artery disease at the time of an ST elevation myocardial infarction July 2019 4. No indication for CABG or PCI at the time of his heart attack July 2019 5. Sustained monomorphic VT Mild ischemic cardiomyopathy with an EF in the range of 45% 6. Status post bifrontal CVA June 2019 and again in July 2019 for which he received TPA He has some mild lateral ST depression on his EKG compared to his EKG of a month ago. His troponins are negative x2 after having 20 minutes of discomfort. I do not think that this was cardiac in etiology. It may be GERD. There is no room to increase his antianginals due to his relatively low blood pressure. His only option would be to consider Ranexa if we thought he was having anginal discomfort. The challenges it can prolong her QT along with amiodarone would be a difficult choice. Given his advanced metastatic prostate cancer he is not a candidate for cardiac intervention or stress testing. His only options are medical therapy even if he is having angina. He has been evaluated by palliative care on a regular basis. He was just evaluated by oncology in the outpatient setting and it does not sound like he has many if any viable therapeutic options. If this is the case hospice may be a reasonable option for him.
--- NOTE | 2020-03-16 15:21 | Discharge Summary ---
Date of Service March 16, 2020 Admission HPI Per Admitting Provider DICTATED BY: Eliud Choi MD DATE OF ADMISSION: 03/15/2020 CHIEF COMPLAINT: Chest pain. HISTORY OF PRESENT ILLNESS: This is a 69-year-old male with past medical history significant for metastatic prostate cancer, history of systolic CHF, hx of ST elevated [place] in early 2019, type 2 diabetes, hyperlipidemia, protein-calorie malnutrition, who lives with his family, presents due to chest pain. The patient was about to eat his supper, when suddenly complained of chest pain holding his hand in the chest and pain radiates to back of the neck and also left arm, which prompted the family to bring the patient to the hospital. By the time they brought him to the hospital, the pain tapered off. Currently resting comfortable and hemodynamically stable. His initial EKG and troponins are okay. Currently, no chest pain. Denies any shortness of breath. No cough, no fever, no chills. No headache, no dizziness. No blurred vision, no earache, no runny nose, no sore throat, no dysphagia. No nausea, no sweating, no abdominal pain. Normal bowel and bladder movements. Ambulates with the support. Principal Diagnosis CHEST PAIN , NO EVIDENCE OF CARDIAC EVENT ACID REFLUX /GERD METASTATIC CA Discharge Exam Constitutional WD/WN, vitals as above + ill appearing and + thin Eyes + anicteric sclerae ENMT external ear and nose normal, oropharynx normal Neck trachea midline, no thyromegaly Respiratory no respiratory distress, no labored breathing and no cough Cardiovascular RRR, no murmur, no edema Gastrointestinal (Abdomen) Percussion/Palpation: abdomen soft; abdomen nontender Musculoskeletal no cyanosis or clubbing, extremities motor strength 5/5 Neurologic PERRL, EOMI, accommodation nl, no face palsy, no dysarthria Psychiatric A+Ox3, euthymic affect Discharge Data Allergies Allergy/AdvReac Type Severity Reaction Status Date / Time Penicillins Allergy Mild Rash Verified 03/15/20 18:40 Consultations 03/15/20 19:25 ED Decision to Admit Stat 03/15/20 22:12 Consult Case Management - Discharge Planning Routine 03/16/20 08:00 Consult Cardiology Routine Ordered Studies 03/15/20 18:26 CT angio chest PE protocol Stat Hospital Course (1) Chest pain: 1.atypical for angina appreciate cardiology eval no acute Cardiac symptoms /CTA of chest negative for PE complex symptoms with cancer pain due to widespread metastatic malignancy no change in cardiac meds recommended Omeprazole 20 mg dose increased to 40 mg for GERD symtpoms stable to be discharged home today 2.Metastatic prostate cancer :followed by Hem-Onc and radiation oncologist. 3. Chronic pain. Continue his home pain medications. 4. Gastroesophageal reflux disease. Continue omeprazole- dose increased as above 5. Depression. Continue Remeron. 6. Hx of monomorphic v tach. Continue home dose of amiodarone. 7 . History of CVA, on aspirin and statin. pt is discharged home today Total Time Total Time Spent Total Time Spent (In Minutes): 30 mins Total Time Includes: Discharge Planning and Medication Reconciliation Discharge Plan Discharge Items Patient Disposition: Home - Self-Care Reason For Visit: CHEST PAIN Discharge Diagnosis: CHEST PAIN , NO EVIDENCE OF CARDIAC EVENT ACID REFLUX /GERD METASTATIC CA Activity: Resume your previous activity Non-emergency contact: Primary Care Provider Call non-emergency contact if: you have any medication questions Follow-up/Referrals: Roseanne Morris MD [Primary Care Provider] - (HOSPITAL FOLLOW UP IN A WEEK OFFICE WILL CALL WITH APPOINTMENT ) Diet: Regular Addtl Attending Provider Instructions: HOSPITAL FOLLOW UP WITH YOUR FAMILY PHYSICIAN Pending Studies at Discharge: No Stand-Alone Forms: My [facility], Smoking Cessation Medications and DC Order Prescriptions: New omeprazole 20 mg capsule,delayed release(DR/EC) 40 mg PO QAM 30 Days Qty: 60 RF: 0 Continued Lupron Depot (3 month) 22.5 mg syringe kit 22.5 mg IM .[id number] RF: 0 docusate sodium [Colace] 100 mg capsule 100 mg PO BID Qty: 14 RF: 0 metformin 500 mg tablet 500 mg PO QPM RF: 0 metformin 500 mg tablet 1,000 mg PO QAM RF: 0 amiodarone 200 mg tablet 100 mg PO QAM RF: 0 aspirin 81 mg Tablet,Delayed Release (Dr/Ec) 81 mg PO QAM RF: 0 oxycodone [OxyContin] 30 mg Tablet,Oral Only,Ext.Rel.12 Hr 30 mg PO Q12H RF: 0 mirtazapine 15 mg tablet 15 mg PO HS RF: 0 prochlorperazine maleate 10 mg tablet 10 mg PO Q6H PRN (Reason: Nausea And Vomiting) RF: 0 fentanyl 100 mcg/hr patch 72 hour 100 mcg topical [id number] RF: 0 dexamethasone 4 mg tablet 2 mg PO DAILY RF: 0 oxycodone 10 mg tablet 5 mg PO .Q4-6HRS PRN (Reason: Breakthrough Pain) RF: 0 acetaminophen 500 mg Tablet 500 - 1,000 mg PO Q6H PRN (Reason: Pain) RF: 0 ajjadzuykkgi-gzkomfsq-kkdkpw Tablet 1 tab PO QAM RF: 0 furosemide 20 mg tablet 20 mg PO Q2D RF: 0 Discharge Orders: Discharge Order (Routine); Ordered 03/16/20 Ordered By: Lynda Garcia/Other Patient Handouts: Managing Type 2 Diabetes Admission Data Admit Date/Time: 03/15/20 20:41 Attending Provider: Lynda Hess Admit Provider: Eliud Choi Primary Care Provider: Roseanne Morris Other Providers: Eliud Choi ; Prashanth Martinez
[2020-03-16] MEDS ORDERED: HYDROmorphone INJ 1 MG/ML SYRINGE IV STA (15:25)
[2020-03-16] MEDS ORDERED: OXYCODONE HCL IR 5 MG TAB (IMMEDIATE RELEASE) PO STA (15:30)
--- NOTE | 2020-03-17 13:48 | Electrocardiogram Report ---
Test Reason : Blood Pressure : / mmHG Vent. Rate : 084 BPM Atrial Rate : 084 BPM P-R Int : 182 ms QRS Dur : 096 ms QT Int : 352 ms P-R-T Axes : 066 -20 049 degrees QTc Int : 415 ms Normal sinus rhythm Inferior infarct (cited on or before 08-FEB-2020) Abnormal ECG When compared with ECG of 10-FEB-2020 07:01, Nonspecific T wave abnormality has replaced inverted T waves in Inferior leads Confirmed by Malik Aquino ([id number]) on 03/17/2020 1:47:58 PM Referred By: REFERRED SELF Confirmed By:Malik Aquino
--- NOTE | 2020-03-17 14:05 | Electrocardiogram Report ---
Test Reason : Blood Pressure : / mmHG Vent. Rate : 079 BPM Atrial Rate : 079 BPM P-R Int : 174 ms QRS Dur : 092 ms QT Int : 352 ms P-R-T Axes : 063 -22 050 degrees QTc Int : 403 ms Normal sinus rhythm Inferior infarct (cited on or before 08-FEB-2020) Abnormal ECG When compared with ECG of 15-MAR-2020 17:20, (unconfirmed) No significant change was found Confirmed by Malik Aquino ([id number]) on 03/17/2020 2:05:33 PM Referred By: REFERRED SELF Confirmed By:Malik Aquino
== END 2020-03-16 17:14 | disposition home or self-care (01) ==
LOC: ED 17:00 → 2W 17:00

== ENCOUNTER 2020-04-05 15:45 | Inpatient (IN) ==
[2020-04-05] MEDS ORDERED: HYDROmorphone INJ 1 MG/ML SYRINGE IV PRN (16:02)
[2020-04-05] MEDS ORDERED: fentaNYL citrate 100 MCG/2 ML VIAL IV ONE ×2 (16:03→16:51)
[2020-04-05] MEDS ORDERED: diphenhydrAMINE 50 MG/ML VIAL IV STA (16:03)
[2020-04-05] MEDS ORDERED: PROCHLORPERAZINE 2 ML IV ONE (16:03)
[2020-04-05] MEDS ORDERED: MAGNESIUM SULFATE / D5W 1 GM/100 ML BAG IV STA (16:04)
[2020-04-05] MEDS ORDERED: ACETAMINOPHEN 1,000 MG/100 ML VIAL IV STA (16:05)
--- NOTE | 2020-04-05 16:05 | Emergency Department Note ---
History of Present Illness General Chief complaint: Illness Stated complaint: UNRESPONSIVE Time Seen by Provider: 04/05/20 15:59 Source: patient, family, EMS, RN notes reviewed and old records reviewed Mode of arrival: EMS Limitations: language barrier History of Present Illness Provider complaint: Uncontrolled pain Onset (ago): hour(s) less than 1 Radiation: non-radiation Severity: severe Pain Consistency: + constant Maximum Pain Intensity: 10 Current Pain Intensity: 10 Quality: + stabbing Relieved By: + none Exacerbated By: + movement Associated symptoms: + denies other symptoms; no chest pain, no cough, no fever/chills, no headaches, no nausea/vomiting and no shortness of breath Treatments prior to arrival: other (Narcan) This is a 69-year-old male with a history metastatic breast cancer of who presents the emergency department with severe pain. Patient has known bone meta stasis from his prostate cancer. He is on a large amount of narcotics including fentanyl patch as well as oxycodone. Patient's family was concerned that he had taken too many narcotics today and he became unresponsive. At that point the patient was then given Narcan. The patient presents the emergency department in acute withdrawal and the family cannot get his pain under control. The Narcan was given approximately 30 minutes ago. Home Medications Home Medications Medication Instructions Recorded Confirmed Type amiodarone 100 mg PO QAM 11/07/19 04/05/20 History metformin 1,000 mg PO QAM 11/07/19 04/05/20 History metformin 500 mg PO QPM 11/07/19 04/05/20 History aspirin 81 mg PO QAM 11/08/19 04/05/20 History leuprolide (3 month) 22.5 mg (3 22.5 mg IM .[id number] ea 12/02/19 04/05/20 History month) intramuscular syringe kit mirtazapine 15 mg PO HS 03/04/20 04/05/20 History prochlorperazine maleate 10 mg PO Q6H PRN 03/04/20 04/05/20 History acetaminophen 500 - 1,000 mg PO Q6H PRN 03/15/20 04/05/20 History dexamethasone 2 mg PO DAILY 03/15/20 04/05/20 History furosemide 20 mg PO Q2D 03/15/20 04/05/20 History hsjuqzmdiwfj-ytpqhjzw-rzzngk 1 tab PO QAM 03/15/20 04/05/20 History omeprazole 40 mg PO QAM 30 Days #60 cap 03/16/20 04/05/20 Rx naloxone 4 mg/actuation nasal spray 1 spray INTRANASAL Q2M PRN #2 ea 03/24/20 04/05/20 Rx gabapentin 100 mg PO TID 04/05/20 04/05/20 History docusate sodium 100 mg PO BID 30 Days #60 cap 04/07/20 Rx fentanyl 25 mcg TRANSDERMAL Q3D 12 Days #4 04/07/20 Rx ea fentanyl 100 mcg TRANSDERMAL Q3D 12 Days #4 04/07/20 Rx ea oxycodone 5 - 10 mg PO Q4H PRN 4 Days #30 tab 04/07/20 Rx polyethylene glycol 3350 [Miralax] 17 g PO DAILY PRN 30 Days #30 ea 04/07/20 Rx sennosides [Senokot] 8.6 mg PO QAM 30 Days #30 tab 04/07/20 Rx Allergies Allergy/AdvReac Type Severity Reaction Status Date / Time Penicillins Allergy Mild Rash Verified 04/05/20 16:46 Past Med/Surg History Medical History Abdominal pain, lower Acute UTI Back pain Bone metastases Cachexia Depression Diabetes mellitus, type 2 History of kidney stones Hyperlipidemia Hypertension Myocardial Infarction 06/2019--was taken to [facility] in [place] (had a stroke as well), did not have a heart cath/heart surgery--follows with Dr. Iyer at [facility], no blood thinners Prostate cancer 1999--bone metastases---sx/radiation/chemo Surgical History History of colonoscopy History of prostate biopsy malignant History of tooth extraction History of wisdom tooth extraction Hx of prostatectomy S/P cystourethroscopy with dilation of urethral stricture Family History Mother , age 99 old age Diabetes Father , age 78 prostate ca Prostate cancer Brother , liver cancer No problems noted. Brother No problems noted. Brother No problems noted. Brother No problems noted. Sister No problems noted. Sister No problems noted. Sister No problems noted. Son No problems noted. Daughter No problems noted. 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 Feels Safe at Home: Yes Childhood Exposure to Second-Hand Smoke: No Diet Comment: low carbs for diabetes management caffeine: Yes (2 cups per day) during the past year weight has: decreased > 10 lbs Dental Care, Regularly: Yes Physical Activity Frequency: Does not Exercise Seatbelt Use: always Sunscreen Use: Yes Assistive Devices: None Review of Systems A total of 10 systems reviewed and were otherwise negative Physical Exam Vital Signs Vital Signs - 24 hr 04/05/20 16:00 Temperature 36.7 C Temperature Source Oral Pulse Rate 100 H Respiratory Rate 18 Respiratory Effort / Characteristics Non-Labored Respiratory Depth Normal Blood Pressure 159/91 H Blood Pressure Mean 113 Blood Pressure Position Lying Pulse Oximetry 94 Oxygen Delivery Method Room Air Sepsis Recent Fever Within 48 Hours No Sepsis New/Unexplained Change in Mental Status No Sepsis Action Taken by Nursing No Action Required VITAL SIGNS - Vital signs and nursing notes were reviewed. GENERAL - 69-year-old male appearing stated age who is in acute distress, writhing around bed. SKIN - Without rashes. HEAD - NC/AT. EYES - PERRL with EOMI bilaterally. Sclera anicteric. Palpebral conjunctiva pink and moist with no injection noted. EARS - No deformities of external structures noted on gross examination bilaterally. No pain elicited with palpation of the tragus bilaterally. External auditory canals without discharge or otorrhea. Tympanic membranes pearly pop without retraction or bulging. No fluid or purulent material visualized behind the TM. Handle of malleus, umbo, cone of light, pars tensa/flaccid all easily visualized. NOSE - Midline and without cyanosis. No epistaxis or purulent drainage noted. Septum midline without deviation or septal hematoma noted. MOUTH/OROPHARYNX - Without perioral cyanosis. Buccal mucosa pink and moist and without leukoplakia. Tongue midline with equal elevation of palate bilaterally. No tonsillar hypertrophy, erythema, or exudates noted. dentition noted. NECK - Neck with FROM. Supple to palpation. lymphadenopathy noted. No nuchal rigidity. LUNGS - Chest wall symmetric without accessory muscle use, intercostals retractions, or central cyanosis. Normal vesicular breath sounds CTA B/L. No wh eezes, rales, or rhonchi appreciated. CARDIAC - RRR with S1/S2. No murmur, rubs, or gallops appreciated. ABDOMEN - Abdominal contour without pulsations or visible masses. BS normoactive all four quadrants. No tenderness, palpable masses, hepatosplenomegaly, or ascites noted. EXTREMITIES - No clubbing or peripheral cyanosis. No pretibial edema present. +3/5 radial, posterior tibial, and dorsalis pedis pulses palpated throughout. +5/5 strength noted in UE/LE bilaterally. NEUROLOGIC - Cranial nerves II through XII grossly intact. Sensory intact to light touch throughout. Patellar reflexes +2/4. PSYCH - A&Ox3 and cooperates fully with examiner. Course Administered Medications Discontinued Medications Acetaminophen (Acetaminophen 500 Mg Tab) 1,000 mg PO Q8H PRN PRN Reason: Pain Stop: 05/05/20 20:32 Last Admin: 04/07/20 19:02 Dose: 1,000 mg Documented by: [id number] Admin: 04/07/20 02:00 Dose: 1,000 mg Documented by: [id number] Amiodarone HCl (Amiodarone 200 Mg Tab) [facility] [place] Stop: 05/06/20 08:59 Last Admin: 04/07/20 08:55 Dose: 100 mg Documented by: [id number] Admin: 04/06/20 09:47 Dose: 100 mg Documented by: [id number] Aspirin (Aspirin 81 Mg Ectab) [facility] mg [facility] [place] Stop: 05/06/20 08:59 Last Admin: 04/07/20 08:55 Dose: 81 mg Documented by: [id number] Admin: 04/06/20 09:49 Dose: 81 mg Documented by: [id number] Dexamethasone (Dexamethasone 1 Mg Tab) 2 mg PO DAILY [facility] Stop: 05/06/20 08:59 Last Admin: 04/07/20 08:56 Dose: 2 mg Documented by: [id number] Admin: 04/06/20 09:49 Dose: 2 mg Documented by: [id number] Diphenhydramine HCl (Diphenhydramine Hcl 50 Mg/Ml Vial) 50 mg IV NOW STA Stop: 04/05/20 16:04 Last Admin: 04/05/20 16:18 Dose: 50 mg Documented by: [id number] Docusate Sodium (Docusate Sodium 100 Mg Cap) 100 mg PO BID [facility] Stop: 05/05/20 20:59 Last Admin: 04/07/20 08:57 Dose: 100 mg Documented by: [id number] Admin: 04/06/20 20:17 Dose: 100 mg Documented by: [id number] Admin: 04/06/20 09:47 Dose: 100 mg Documented by: [id number] Admin: 04/05/20 22:22 Dose: 100 mg Documented by: [id number] Enoxaparin Sodium (Enoxaparin Inj 40 Mg/0.4 Ml Syr) 40 mg SQ PM [facility] Stop: 05/06/20 20:59 Last Admin: 04/06/20 20:20 Dose: 40 mg Documented by: [id number] Fentanyl (Fentanyl 100 Mcg/Hr Tdsy) 100 mcg TD Q3D [facility] Stop: 04/20/20 08:59 Last Admin: 04/06/20 14:24 Dose: Not Given Documented by: [id number] Fentanyl (Fentanyl 25 Mcg/Hr Tdsy) 125 mcg TD Q3D [facility] Stop: 04/20/20 09:29 Last Admin: 04/06/20 14:24 Dose: Not Given Documented by: [id number] Fentanyl (Fentanyl 100 Mcg/Hr Tdsy) 100 mcg TD Q3D [facility] Stop: 04/20/20 09:59 Last Admin: 04/06/20 10:04 Dose: 100 mcg Documented by: [id number] Fentanyl (Fentanyl 25 Mcg/Hr Tdsy) 25 mcg TD Q3D [facility] Stop: 04/20/20 09:59 Last Admin: 04/06/20 10:03 Dose: 25 mcg Documented by: [id number] Fentanyl Citrate (Fentanyl Citrate 100 Mcg/2 Ml Vial) 100 mcg IV NOW ONE Stop: 04/05/20 16:04 Last Admin: 04/05/20 16:18 Dose: 100 mcg Documented by: [id number] Fentanyl Citrate (Fentanyl Citrate 100 Mcg/2 Ml Vial) 50 mcg IV NOW STA Stop: 04/05/20 16:28 Last Admin: 04/05/20 16:46 Dose: 50 mcg Documented by: [id number] Fentanyl Citrate (Fentanyl Citrate 100 Mcg/2 Ml Vial) 100 mcg IV NOW ONE Stop: 04/05/20 16:52 Last Admin: 04/05/20 20:02 Dose: Not Given Documented by: [id number] Furosemide (Furosemide 20 Mg Tab) 20 mg PO Q2D [facility] Stop: 05/06/20 08:59 Last Admin: 04/06/20 09:47 Dose: 20 mg Documented by: [id number] Gabapentin (Gabapentin 100 Mg Cap) 100 mg PO TID [facility] Stop: 05/05/20 20:59 Last Admin: 04/07/20 13:34 Dose: 100 mg Documented by: [id number] Admin: 04/07/20 08:56 Dose: 100 mg Documented by: [id number] Admin: 04/06/20 20:18 Dose: 100 mg Documented by: [id number] Admin: 04/06/20 13:03 Dose: 100 mg Documented by: [id number] Admin: 04/06/20 09:47 Dose: 100 mg Documented by: [id number] Admin: 04/05/20 22:21 Dose: 100 mg Documented by: [id number] Heparin Sodium (Porcine) (Heparin Sod 5,000 Unit/0.5 Ml Vial) 5,000 units SQ Q12 [facility] Stop: 05/05/20 20:59 Last Admin: 04/06/20 09:49 Dose: 5,000 units Documented by: [id number] Cosigned by: [id number] Admin: 04/05/20 22:22 Dose: 5,000 units Documented by: [id number] Cosigned by: [id number] Hydromorphone HCl (Hydromorphone Inj 0.5 Mg/0.5 Ml Syr) 0.5 mg IV Q2HWA PRN PRN Reason: Breakthrough Pain Stop: 04/20/20 09:16 Last Admin: 04/06/20 13:00 Dose: 0.5 mg Documented by: [id number] Prochlorperazine (Compazine) 2 mls @ 1 mls/min IV ONE ONE Stop: 04/05/20 16:04 Last Admin: 04/05/20 16:18 Dose: 1 mls/min Documented by: [id number] Magnesium Sulfate/Dextrose (Magnesium Sulfate / D5w) 1 gm in 100 mls @ 100 mls/hr IV NOW STA Stop: 04/05/20 17:03 Last Infusion: 04/05/20 17:30 Dose: 0 mls/hr Documented by: [id number] Admin: 04/05/20 16:18 Dose: 100 mls/hr Documented by: [id number] Acetaminophen (Ofirmev) 1,000 mg in 100 mls @ 400 mls/hr IV NOW STA Stop: 04/05/20 16:19 Last Infusion: 04/05/20 16:34 Dose: 0 mls/hr Documented by: [id number] Admin: 04/05/20 16:19 Dose: 400 mls/hr Documented by: [id number] Sodium Chloride (Nss 1000ml) 1,000 mls @ 100 mls/hr IV .Q10H [facility]IAN[facility] Stop: 04/06/20 06:32 Last Infusion: 04/06/20 08:58 Dose: 0 mls/hr Documented by: [id number] Admin: 04/05/20 22:16 Dose: 100 mls/hr Documented by: [id number] Insulin Aspart (Insulin Aspart 100 Units/Ml 3 Ml Pen) 0 units SC ACHS [facility]IAN[facility] Stop: 05/05/20 20:59 Last Admin: 04/07/20 19:14 Dose: 2 units Documented by: [id number] Cosigned by: [id number] Admin: 04/07/20 13:36 Dose: 3 units Documented by: [id number] Cosigned by: [id number] Admin: 04/07/20 09:50 Dose: 4 units Documented by: [id number] Cosigned by: [id number] Admin: 04/06/20 20:53 Dose: 3 units Documented by: [id number] Cosigned by: [id number] Admin: 04/06/20 17:57 Dose: 5 units Documented by: [id number] Cosigned by: [id number] Admin: 04/06/20 13:06 Dose: Not Given Documented by: [id number] Admin: 04/06/20 09:53 Dose: 3 units Documented by: [id number] Cosigned by: [id number] Admin: 04/05/20 22:22 Dose: Not Given Documented by: [id number] Cosigned by: [id number] Mirtazapine (Mirtazapine Tab 15 Mg Tab) 15 mg PO HS [facility] Stop: 05/05/20 20:59 Last Admin: 04/06/20 20:18 Dose: 15 mg Documented by: [id number] Admin: 04/05/20 22:21 Dose: 15 mg Documented by: [id number] Miscellaneous (Check Fentanyl Patch Placement) 1 ea N/A [facility] Stop: 05/06/20 00:00 Last Admin: 04/06/20 09:03 Dose: 1 ea Documented by: [id number] Admin: 04/06/20 01:50 Dose: 1 ea Documented by: [id number] Miscellaneous (Fentanyl Patch Remove & Waste) 1 ea N/A Q72H [facility] Stop: 05/06/20 09:28 Last Admin: 04/06/20 14:24 Dose: Not Given Documented by: [id number] Miscellaneous (Fentanyl Patch Remove & Waste) 1 ea N/A Q72H [facility] Stop: 05/06/20 09:59 Last Admin: 04/06/20 10:04 Dose: 1 ea Documented by: [id number] Cosigned by: [id number] Miscellaneous (Check Fentanyl Patch Placement) 1 ea N/A [facility] Stop: 05/06/20 15:59 Last Admin: 04/07/20 16:06 Dose: 1 ea Documented by: [id number] Admin: 04/07/20 08:54 Dose: 1 ea Documented by: [id number] Admin: 04/07/20 00:36 Dose: 1 ea Documented by: [id number] Admin: 04/06/20 17:55 Dose: 1 ea Documented by: [id number] Miscellaneous (Fentanyl Patch Remove & Waste) 1 ea N/A Q72H [facility] Stop: 05/06/20 09:59 Last Admin: 04/06/20 10:04 Dose: 1 ea Documented by: [id number] Cosigned by: [id number] Miscellaneous (Check Fentanyl Patch Placement) 1 ea N/A [facility] Stop: 05/06/20 15:59 Last Admin: 04/07/20 16:06 Dose: 1 ea Documented by: [id number] Admin: 04/07/20 08:55 Dose: 1 ea Documented by: [id number] Admin: 04/07/20 00:36 Dose: 1 ea Documented by: [id number] Admin: 04/06/20 17:56 Dose: 1 ea Documented by: [id number] Multivitamins (Multivitamin Tab) 1 tab PO QAM [facility] Stop: 05/06/20 08:59 Last Admin: 04/07/20 08:55 Dose: 1 tab Documented by: [id number] Admin: 04/06/20 09:48 Dose: 1 tab Documented by: [id number] Oxycodone HCl (Oxycodone Hcl Ir 5 Mg Tab (Immediate Release)) 5 mg PO Q4H PRN PRN Reason: Pain Stop: 04/19/20 20:32 Last Admin: 04/06/20 05:01 Dose: 5 mg Documented by: [id number] Oxycodone HCl (Oxycodone Hcl 15 Mg Tabcr (Oxycontin)) 30 mg PO Q12H [facility] Stop: 04/19/20 20:59 Last Admin: 04/06/20 14:25 Dose: Not Given Documented by: [id number] Admin: 04/05/20 22:21 Dose: 30 mg Documented by: [id number] Oxycodone HCl (Oxycodone Hcl Ir 5 Mg Tab (Immediate Release)) 5 - 10 mg PO Q4H PRN PRN Reason: Pain Stop: 04/19/20 20:32 Last Admin: 04/07/20 18:24 Dose: 10 mg Documented by: [id number] Admin: 04/07/20 13:33 Dose: 10 mg Documented by: [id number] Admin: 04/07/20 09:01 Dose: 10 mg Documented by: [id number] Admin: 04/07/20 01:59 Dose: 10 mg Documented by: [id number] Admin: 04/06/20 11:56 Dose: 10 mg Documented by: [id number] Pantoprazole Sodium (Pantoprazole 40 Mg Tab) 40 mg PO QAM [facility] Stop: 05/06/20 08:59 Last Admin: 04/07/20 08:56 Dose: 40 mg Documented by: [id number] Admin: 04/06/20 09:48 Dose: 40 mg Documented by: [id number] Polyethylene Glycol (Polyethylene (Miralax) 17 Gm Pack) 17 gm PO ONCE ONE Stop: 04/07/20 15:33 Last Admin: 04/07/20 16:05 Dose: 17 gm Documented by: [id number] Prochlorperazine (Prochlorperazine Maleate 10 Mg Tab) 10 mg PO Q6H PRN PRN Reason: Nausea And Vomiting Stop: 05/05/20 20:32 Last Admin: 04/06/20 09:48 Dose: 10 mg Documented by: [id number] Sennosides (Senna 8.6 Mg Tab) 8.6 mg PO QAM [facility] Stop: 05/05/20 20:32 Last Admin: 04/07/20 08:55 Dose: 8.6 mg Documented by: [id number] Admin: 04/06/20 09:47 Dose: 8.6 mg Documented by: [id number] Admin: 04/05/20 22:22 Dose: 8.6 mg Documented by: [id number] Critical Care Time I have personally spent greater than 30 minutes of critical care time in the direct management of this patient. This includes bedside care, interpretation of diagnostic studies, and testing, discussion with consultants, patient, and family members, and other required patient management activities. This 30 minutes is in excess of all separately billable procedures. Medical Decision Making Differential Diagnosis Appendicitis, testicular torsion, infections, diverticulitis, UTI, obstruction, mesenteric ischemia, aortic pathology, inflammatory bowel disease, renal colic, PUD, pancreatitis, biliary pathology, hernia, volvulus, constipation, as well as other pathologies. Medical Records Attestation: I reviewed the patient's medical records. Home Medications Current Medication List: was personally reviewed by me Laboratory Data Attestation: I reviewed the patient's lab results. Result diagrams: 04/07/20 05:03 04/07/20 05:03 Lab Results 04/05/20 04/05/20 04/05/20 Range/Units 16:15 16:15 16:45 WBC 5.00 (4.8-10.8) K/uL RBC 3.40 L (4.7-6.1) M/uL Hgb 10.0 L (14.0-18.0) g/dL Hct 30.8 L (42-52) % MCV 90.6 (80-100) fL MCH 29.4 (25-34) pg MCHC 32.5 (32-36) g/dL RDW Std Deviation 51.1 H (36.4-46.3) fL RDW Coeff of Jesus 15.6 H (11.5-14.5) % Plt Count 195 (130-400) K/uL MPV 8.6 (7.4-10.4) fL Immature Gran % (Auto) 1.0 % Neut % (Auto) 71.0 % Lymph % (Auto) 17.4 % Carver % (Auto) 9.4 % Eos % (Auto) 0.6 % Baso % (Auto) 0.6 % Neut # (Auto) 3.55 (1.4-6.5) K/uL Lymph # (Auto) 0.87 L (1.2-3.4) K/uL Carver # (Auto) 0.47 (0.11-0.59) K/uL Eos # (Auto) 0.03 (0-0.5) K/uL Baso # (Auto) 0.03 (0-0.2) K/uL Immature Gran # (Auto) 0.05 H (0.00-0.02) K/uL Absolute Nucleated RBC 0.05 H (0-0) K/uL Nucleated RBC % (auto) 0.9 % Sodium 132 L (136-145) mmol/L Potassium 4.1 (3.5-5.1) mmol/L Chloride 97 L (98-107) mmol/L Carbon Dioxide 27 (21-32) mmol/L Anion Gap 8.0 (3-11) BUN 17 (7-18) mg/dl Creatinine 0.68 (0.6-1.4) mg/dl Est Cr Clr Drug Dosing Not Reportable Est GFR ( Amer) 112.1 Est GFR (Non-Af Amer) 96.8 BUN/Creatinine Ratio 25.8 H (10-20) Glucose 100 H (70-99) mg/dl Calcium 8.9 (8.5-10.1) mg/dl Total Bilirubin 0.3 (0.2-1) mg/dl AST 80 H (15-37) U/L ALT 17 (12-78) U/L Alkaline Phosphatase 1386 H (45-117) U/L Total Creatine Kinase 197 (39-308) U/L Troponin I < 0.015 (0-0.045) ng/ml Total Protein 6.5 (6.4-8.2) gm/dl Albumin 3.0 L (3.4-5.0) gm/dl Globulin 3.5 (2.5-4.0) gm/dl Albumin/Globulin Ratio 0.9 (0.9-2) TSH 1.730 (0.300-4.500) uIu/ml Urine Color Yellow Urine Appearance Clear (Clear) Urine pH 7.0 (4.5-7.5) Ur Specific [place] 1.017 (1.000-1.030) Urine Protein Negative (Negative) Urine Glucose (UA) Negative (Negative) Urine Ketones Trace H (Negative) Urine Blood Negative (Negative) Urine Nitrite Negative (Negative) Urine Bilirubin Negative (Negative) Urine Urobilinogen Negative (Negative) Ur Leukocyte Esterase Negative (Negative) Imaging Data Radiologist's Impression: [place], [place] [phone] XRay Report Patient: MARTÍNEZ RAJAN Date: 04/05/20 MR#: [id number] Acct ID:[id number]: Date: 1950City Zip: [place] [address] Age: 69Location: ED Sex: MRoom/Bed: Att Phy:Diagnosis: UNRESPONSIVE Bella Phy: Roseanne Morris MDService Date: 04/05/20 Fam Phy:Interpreting Phy: Alvarez Ca MD Admit Phy: Ordering Phy: Paulie Jacobson MD cc: ~ XR chest 1V portable CLINICAL HISTORY: weakness COMPARISON STUDY: 03/15/2020 FINDINGS: The cardiac and mediastinal contours are normal. There is no evidence of focal pulmonary consolidation. There is no evidence of failure. No pleural effusions are visualized.[There are diffuse blastic skeletal metastasis. IMPRESSION: 1. No active disease in the chest 2. Diffuse blastic skeletal metastasis. ACT 112: Negative or not required by law. Electronically signed by: Alvarez Ca M.D. 04/05/2020 5:00 PM Dictated: 04/05/201699 Transcribed: 04/05/201699 [facility] Narrative Patient was seen and evaluated as above in room C10. Review was performed of nursing notes and vital signs. I did review pertinent previous visits and patient history. After obtaining a thorough history and physical examination the above work up was performed. This is a 69-year-old male who presents to the emergency department in acute withdrawal. It took multiple doses of pain medication and multiple checking up on this patient until his pain was under control. The patient was given multiple doses of fentanyl along with Tylenol Benadryl Compazine magnesium. Once we were able to get the patient's pain under control he was then given D ilaudid. I then discussed the patient's case with the family. They would like the patient admitted for pain control. I did discuss the case with the hospitalist service who did agree to admit the patient. Patient is in agreement with the treatment plan. An order was placed for continuous cardiac monitoring. The monitor shows a rate of 89 with Normal Sinus rhythm. The patient was evaluated during the global COVID-19 pandemic, and that diagnosis was suspected/considered upon their initial presentation. Their evaluation, treatment and testing was consistent with current guidelines for p atients who present with complaints or symptoms that may be related to COVID-19. Impression & Plan Cancer related pain, Cachexia, Prostate cancer metastatic to bone Discharge Plan Visit Data Chief Complaint: Illness Stated Complaint: UNRESPONSIVE ED Provider: Paulie Jacobson Discharge Problem: Cancer related pain, Cachexia, Prostate cancer metastatic to bone Patient Disposition: Admitted As Inpatient Condition: Fair Discharge Instructions Interventions: ED Discharge Assessment Last Done: 04/05/20 20:05
[2020-04-05] MEDS ORDERED: fentaNYL citrate 100 MCG/2 ML VIAL IV STA (16:27)
[2020-04-05 16:28] LABS: Basophils # (auto) 0.03 K/uL (0-0.2); Basophils % (auto) 0.6 %; Eosinophils # (auto) 0.03 K/uL (0-0.5); Eosinophils % (auto) 0.6 %; Hematocrit (blood only) 30.8 % (42-52); Immature Granulocytes # (auto) 0.05 K/uL (0.00-0.02); Lymphocytes # (auto) 0.87 K/uL (1.2-3.4); Lymphocytes % (auto) 17.4 %; Mean Corpuscular Hemoglobin 29.4 pg (25-34); Mean Corpuscular Hgb Conc 32.5 g/dL (32-36); Mean Corpuscular Volume 90.6 fL (80-100); Mean Platelet Volume 8.6 fL (7.4-10.4); Monocytes # (auto) 0.47 K/uL (0.11-0.59); Monocytes % (auto) 9.4 %; Neutrophils # (auto) 3.55 K/uL (1.4-6.5); Nucleated RBC # (auto) 0.05 K/uL (0-0); Nucleated RBC % (auto) 0.9 %; Platelet Count 195 K/uL (130-400); RDW Coefficient of Variation 15.6 % (11.5-14.5); RDW Standard Deviation 51.1 fL (36.4-46.3)
[2020-04-05 16:44] LABS: Alanine Aminotransferase 17 U/L (12-78); Aspartate Aminotransferase 80 U/L (15-37); BUN Creatinine Ratio 25.8 (10-20); Blood Urea Nitrogen 17 mg/dl (7-18); Calcium 8.9 mg/dl (8.5-10.1); Carbon Dioxide 27 mmol/L (21-32); Chloride 97 mmol/L (98-107); Est GFR (African American) 112.1; Est GFR (Non-African American) 96.8; Glucose 100 mg/dl (70-99); Potassium 4.1 mmol/L (3.5-5.1); Sodium 132 mmol/L (136-145)
[2020-04-05 16:58] LABS: Albumin Globulin Ratio 0.9 (0.9-2); Alkaline Phosphatase 1386 U/L (45-117); Bilirubin,Total 0.3 mg/dl (0.2-1); Creatine Kinase 197 U/L (39-308); Globulin 3.5 gm/dl (2.5-4.0); Total Protein 6.5 gm/dl (6.4-8.2); Troponin I < 0.015 ng/ml (0-0.045)
[2020-04-05 17:00] LABS: Appearance Urine Clear (Clear); Bilirubin Urine Negative (Negative); Blood Urine Negative (Negative); Color Urine Yellow; Glucose Urine UA Negative (Negative); Ketones Urine Trace (Negative); Leukocyte Esterase Urine Negative (Negative); Nitrite Urine Negative (Negative); Protein Urine Negative (Negative); Specific Gravity Urine 1.017 (1.000-1.030); Urobilinogen Urine Negative (Negative)
--- NOTE | 2020-04-05 17:01 | XRay Report ---
XR chest 1V portable CLINICAL HISTORY: weakness COMPARISON STUDY: 03/15/2020 FINDINGS: The cardiac and mediastinal contours are normal. There is no evidence of focal pulmonary co nsolidation. There is no evidence of failure. No pleural effusions are visualized.[There are diffuse blastic skeletal metastasis. IMPRESSION: 1. No active disease in the chest 2. Diffuse blastic skeletal metastasis. ACT 112: Negative or not required by law. Electronically signed by: Alvarez Ca M.D. 04/05/2020 5:00 PM
[2020-04-05] MEDS ORDERED: HYDROmorphone INJ 0.5 MG/0.5 ML SYR IV PRN (17:42)
--- NOTE | 2020-04-05 19:21 | History & Physical Report ---
Date of Service April 05, 2020 Assessment & Plan (1) Episode of unresponsiveness: (2) Cancer related pain: This is a 69yo M with PMH of metastatic prostate cancer to bone with h/o prostatectomy and palliative XRT, history of systolic CHF, DM II, history of CAD, protein-calorie malnutrition and other medical problems listed below who presents after episode of unresponsiveness at home. -Follows with pain management, saw in clinic on 04/01 and changed pain regimen: increased fentanyl patch from 125 to 150 mcg every 72 hours and discontinued Oxycodone 30mg Q12H -Had episode of unresponsiveness at home today- family administered Narcan and is now A&Ox4 -Presenting to ED with uncontrolled pain and desire to adjust pain regimen -Will transition back to previous regimen for now of 100mcg Fentanyl patch Q72H, Oxycodone 30mg Q12H, Oxycodone IR 5mg Q4H PRN -Pain mgmt and palliative care. Discussed with family, who is interested in pursuing Hospice at this time (3) Prostate cancer metastatic to bone: H/o prostatectomy, [place]. Completed palliative XRT December - Jan 2020 -Not currently receiving treatment (4) Cardiac arrhythmia: 2/2 STEMI in beginning of 2019. Continue amiodarone (5) Diabetes mellitus, type 2: A1c 6.4 in November 2019 -Hold home agents -SSI while in-patient -BSG AC HS (6) Cachexia: Cachectic in setting of metastatic cancer. Albumin of 3. Dietitian consulted DVT Ppx: SQ heparin Code status: DNR per discussion with patient, family PCP: Arturo Dispo: Admitted to med/surg. Discharge planning ordered. Patient seen in collaboration with Dr. Nunez. Please see addendum. History of Present Illness Chief Complaint: pain, episode of unresponsiveness at home Primary Care Provider: Roseanne Morris MD This is a 69yo M with PMH of metastatic prostate cancer to bone with h/o prostatectomy and palliative XRT, history of systolic CHF, DM II, history of CAD, protein-calorie malnutrition and other medical problems listed below who presents after episode of unresponsiveness at home. Patient follows with pain management, who saw patient 4 days ago in clinic and changed pain regimen, increasing fentanyl patch to 150 mcg every 72 hours. Patient lives at home with family and had episode of unresponsiveness earlier today and family administered Narcan. Patient then came to ED with severe, uncontrolled pain. Was evaluated after receiving IV fentanyl and was much more comfortable. Besides pain in back, patient is otherwise comfortable. Denies any chills, lightheadedness, visual changes, chest pain, palpitations, shortness of breath, nausea, vomiting, abdominal pain, dysuria or diarrhea. Endorses having a bowel movement earlier today but has struggled with constipation in the past while on narcotics. Allergies Allergy/AdvReac Type Severity Reaction Status Date / Time Penicillins Allergy Mild Rash Verified 04/05/20 16:46 Home Medications Home Medications Medication Instructions Recorded Confirmed Type amiodarone 100 mg PO QAM 11/07/19 04/05/20 History metformin 1,000 mg PO QAM 11/07/19 04/05/20 History metformin 500 mg PO QPM 11/07/19 04/05/20 History aspirin 81 mg PO QAM 11/08/19 04/05/20 History docusate sodium [Colace] 100 mg PO BID #14 cap 11/18/19 04/05/20 Rx leuprolide (3 month) 22.5 mg (3 22.5 mg IM .[id number] ea 12/02/19 04/05/20 History month) intramuscular syringe kit mirtazapine 15 mg PO HS 03/04/20 04/05/20 History prochlorperazine maleate 10 mg PO Q6H PRN 03/04/20 04/05/20 History acetaminophen 500 - 1,000 mg PO Q6H PRN 03/15/20 04/05/20 History dexamethasone 2 mg PO DAILY 03/15/20 04/05/20 History furosemide 20 mg PO Q2D 03/15/20 04/05/20 History mklshtwdsrud-zaohzyvj-luaqvv 1 tab PO QAM 03/15/20 04/05/20 History omeprazole 40 mg PO QAM 30 Days #60 cap 03/16/20 04/05/20 Rx naloxone 4 mg/actuation nasal spray 1 spray INTRANASAL Q2M PRN #2 ea 03/24/20 04/05/20 Rx fentanyl 50 mcg/hr transdermal 1 patch TRANSDERMAL Q72H #5 ea 04/01/20 04/05/20 Rx patch oxycodone 10 mg tablet 10 mg PO Q4H PRN #60 tab MDD 8 04/01/20 04/05/20 Rx TABS/24 HOURS fentanyl 100 mcg/hr transdermal 100 mcg TOPICAL CQ72HR #5 ea 04/02/20 04/05/20 Rx patch gabapentin 100 mg PO TID 04/05/20 04/05/20 History Past Med/Surg History Medical History (Updated 04/05/20 @ 19:55 by Miranda Pantoja PA-C) Abdominal pain, lower Acute UTI Back pain Bone metastases Cachexia Cardiac arrhythmia Depression Diabetes mellitus, type 2 History of kidney stones Hyperlipidemia Hypertension Myocardial Infarction 06/2019--was taken to [facility] in [place] (had a stroke as well), did not have a heart cath/heart surgery--follows with Dr. Iyer at [facility], no blood thinners Prostate cancer 1999--bone metastases---sx/radiation/chemo Surgical History History of colonoscopy History of prostate biopsy malignant History of tooth extraction History of wisdom tooth extraction Hx of prostatectomy S/P cystourethroscopy with dilation of urethral stricture Family History Mother , age 99 old age Diabetes Father , age 78 prostate ca Prostate cancer Brother , liver cancer No problems noted. Brother No problems noted. Brother No problems noted. Brother No problems noted. Sister No problems noted. Sister No problems noted. Sister No problems noted. Son No problems noted. Daughter No problems noted. 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 Physical Exam Physical Exam: General Appearance: vitals as above, NAD, cachectic, pleasant, conversing easily Head: normocephalic, atraumatic Eyes: normal inspection, PERRL, conjunctivae normal, anicteric sclerae ENT: external ear and nose normal, oropharynx normal Neck: normal visual inspection, trachea midline, no thyromegaly Respiratory: normal respiratory effort, lungs clear to auscultation, no wheeze, rales, rhonchi. No accessory muscle use Cardiovascular: tachycardic rate, regular rhythm, no murmur appreciated, normal peripheral pulses, no BLE edema. Vessels: no JVD Chest: normal inspection of chest Abdomen/GI: normal bowel sounds, soft, nontender, no hepatosplenomegaly Extremities/Musculoskeletal: no cyanosis or clubbing, extremities motor strength 5/5 Neurologic: PERRL, EOMI, accommodation nl, no face palsy, no dysarthria, CN's II-XI intact bilaterally and moves all extremities Psychiatric: A+Ox3, euthymic affect Skin: no rashes, normal color, warm/dry Results & Data Results & [facility] ([facility]) Vital Signs (Past 12 Hours) Vital Signs Temp Pulse Pulse Resp BP BP Pulse Ox 04/05/20 18:00 106 H 12 125/75 92 04/05/20 16:23 94 04/05/20 16:00 36.7 C 100 H 18 159/91 H 94 Laboratory Results Short CBC 04/05/20 04/05/20 04/05/20 Range/Units 16:15 16:15 16:45 WBC 5.00 (4.8-10.8) K/uL RBC 3.40 L (4.7-6.1) M/uL Hgb 10.0 L (14.0-18.0) g/dL Hct 30.8 L (42-52) % MCV 90.6 (80-100) fL MCH 29.4 (25-34) pg MCHC 32.5 (32-36) g/dL RDW Std Deviation 51.1 H (36.4-46.3) fL RDW Coeff of Jesus 15.6 H (11.5-14.5) % Plt Count 195 (130-400) K/uL MPV 8.6 (7.4-10.4) fL Immature Gran % (Auto) 1.0 % Neut % (Auto) 71.0 % Lymph % (Auto) 17.4 % Major % (Auto) 9.4 % Eos % (Auto) 0.6 % Baso % (Auto) 0.6 % Neut # (Auto) 3.55 (1.4-6.5) K/uL Lymph # (Auto) 0.87 L (1.2-3.4) K/uL Major # (Auto) 0.47 (0.11-0.59) K/uL Eos # (Auto) 0.03 (0-0.5) K/uL Baso # (Auto) 0.03 (0-0.2) K/uL Immature Gran # (Auto) 0.05 H (0.00-0.02) K/uL Absolute Nucleated RBC 0.05 H (0-0) K/uL Nucleated RBC % (auto) 0.9 % Sodium 132 L (136-145) mmol/L Potassium 4.1 (3.5-5.1) mmol/L Chloride 97 L (98-107) mmol/L Carbon Dioxide 27 (21-32) mmol/L Anion Gap 8.0 (3-11) BUN 17 (7-18) mg/dl Creatinine 0.68 (0.6-1.4) mg/dl Est Cr Clr Drug Dosing Not Reportable Est GFR ( Amer) 112.1 Est GFR (Non-Af Amer) 96.8 BUN/Creatinine Ratio 25.8 H (10-20) Glucose 100 H (70-99) mg/dl Calcium 8.9 (8.5-10.1) mg/dl Total Bilirubin 0.3 (0.2-1) mg/dl AST 80 H (15-37) U/L ALT 17 (12-78) U/L Alkaline Phosphatase 1386 H (45-117) U/L Total Creatine Kinase 197 (39-308) U/L Troponin I < 0.015 (0-0.045) ng/ml Total Protein 6.5 (6.4-8.2) gm/dl Albumin 3.0 L (3.4-5.0) gm/dl Globulin 3.5 (2.5-4.0) gm/dl Albumin/Globulin Ratio 0.9 (0.9-2) TSH 1.730 (0.300-4.500) uIu/ml Urine Color Yellow Urine Appearance Clear (Clear) Urine pH 7.0 (4.5-7.5) Ur Specific [place] 1.017 (1.000-1.030) Urine Protein Negative (Negative) Urine Glucose (UA) Negative (Negative) Urine Ketones Trace H (Negative) Urine Blood Negative (Negative) Urine Nitrite Negative (Negative) Urine Bilirubin Negative (Negative) Urine Urobilinogen Negative (Negative) Ur Leukocyte Esterase Negative (Negative) BMP 04/05/20 16:15 Sodium 132 L Potassium 4.1 Chloride 97 L Carbon Dioxide 27 BUN 17 Creatinine 0.68 Glucose 100 H Calcium 8.9 Cardiac Enzymes 04/05/20 Range/Units 16:15 Total Creatine Kinase 197 (39-308) U/L Troponin I < 0.015 (0-0.045) ng/ml Liver Function 04/05/20 Range/Units 16:15 Total Bilirubin 0.3 (0.2-1) mg/dl AST 80 H (15-37) U/L ALT 17 (12-78) U/L Alkaline Phosphatase 1386 H (45-117) U/L Albumin 3.0 L (3.4-5.0) gm/dl Urine 04/05/20 Range/Units 16:45 Urine Color Yellow Urine Appearance Clear (Clear) Urine pH 7.0 (4.5-7.5) Ur Specific [place] 1.017 (1.000-1.030) Urine Protein Negative (Negative) Urine Glucose (UA) Negative (Negative) Diagnostic Findings CXR: IMPRESSION: 1. No active disease in the chest 2. Diffuse blastic skeletal metastasis. Code Status & VTE Plan VTE Prophylaxis Plan VTE Prophylaxis will be ordered: Yes Supervising Physician Co-Signing Physician Notes I, Dr. Walter Nunez, have seen and examined the patient with physician assistant women's soccer coach and would like to comment that On Physical Exam General: patient speaking in full sentences, reports some right flank discomfort from cancer related pain but not in address, alert and awake and speaking in full sentences Lungs: on room air, no wheezing Heart: mild sinus tachycardia of low 100 bpm Abdomen: soft, Cachexia, there are bony prominences of the sternum visible because of thinness Neuro/Extremities: moves all extremities, no facial droop Assessment and Plan: -This is a patient with stage IV cancer, not on any current chemotherapy, and on narcotic pain medications for cancer pain who had to be given Narcan at home because of minimal responsive and then sent to the ED -will consult pain management who had recently increased patients Fentanyl patch dosing as 150 mg q72 hours on 04/01/2020 while lowering the long acting oxycodone. This may be too much for patient. 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 Continue home dose amiodarone -hold metformin and give sliding scale insulin while in the hospital. Advice Clerk consult -discussed with patient and family member (son Laith Munson) of the goals of care, and the patient and family opting for code status of DNR/DNI and for when patient is discharged from hospital that they would like hospice -consult palliative care -alkaline phosphatase are chronically elevated and likely due to malignancy -agree with assessment and plan as documented by physician assistant women's soccer coach -My colleague Dr. Nichols will be following the patient starting on 04/06/2020
[2020-04-05] MEDS ORDERED: SODIUM CHLORIDE 0.9% 1000ML 1,000 ML IV SCH (20:33)
[2020-04-05] MEDS ORDERED: ONDANSETRON INJ 2 MG/ML 2 ML VIAL IV PRN (20:33)
[2020-04-05] MEDS ORDERED: CARBOHYDRATES FOR HYPOGLYCEMIA PO PRN (20:33)
[2020-04-05] MEDS ORDERED: oxyCODONE HCL IR 5 MG TAB (IMMEDIATE RELEASE) PO PRN (20:33)
[2020-04-05] MEDS ORDERED: POLYETHYLENE (MIRALAX) 17 GM PACK PO PRN (20:33)
[2020-04-05] MEDS ORDERED: GLUCOSE 40% GEL 15 GM TUBE PO PRN (20:33)
[2020-04-05] MEDS ORDERED: PROCHLORPERAZINE MALEATE 10 MG TAB PO PRN (20:33)
[2020-04-05] MEDS ORDERED: GLUCAGON FOR INJ 1 MG VIAL SQ PRN (20:33)
[2020-04-05] MEDS ORDERED: GLUCOSE 10 TABS/TUBE PO PRN (20:33)
[2020-04-05] MEDS ORDERED: DEXTROSE 50% 50 ML SYRINGE IV PRN (20:33)
[2020-04-05] MEDS ORDERED: NALOXONE HCL 0.4 MG/1 ML VIAL/CARP IV PRN ×2 (20:52→21:30)
[2020-04-05] MEDS: MIRTAZAPINE TAB 15 MG TAB PO SCH (22:21)
[2020-04-05] MEDS: GABAPENTIN 100 MG CAP PO SCH (22:21)
[2020-04-05] MEDS: oxyCODONE HCL 15 MG TABCR (OxyCONTIN) PO SCH (22:21)
[2020-04-05] MEDS: DOCUSATE SODIUM 100 MG CAP PO SCH (22:22)
[2020-04-05] MEDS: HEPARIN SOD 5,000 UNIT/0.5 ML VIAL SQ SCH (22:22)
[2020-04-05] MEDS: INSULIN ASPART 100 UNITS/ML 3 ML PEN SC SCH (22:22)
[2020-04-05] MEDS: SENNA 8.6 MG TAB PO SCH (22:22)
[2020-04-06] MEDS: CHECK fentaNYL PATCH PLACEMENT SCH ×4 (01:50→17:56)
[2020-04-06 06:51] LABS: Hematocrit (blood only) 32.9 % (42-52); Hemoglobin 10.3 g/dL (14.0-18.0); Mean Corpuscular Hemoglobin 28.8 pg (25-34); Mean Corpuscular Hgb Conc 31.3 g/dL (32-36); Mean Corpuscular Volume 91.9 fL (80-100); Mean Platelet Volume 8.1 fL (7.4-10.4); Nucleated RBC # (auto) 0.04 K/uL (0-0); Nucleated RBC % (auto) 0.9 %; Platelet Count 196 K/uL (130-400); RDW Coefficient of Variation 15.7 % (11.5-14.5); RDW Standard Deviation 52.1 fL (36.4-46.3); Red Blood Count 3.58 M/uL (4.7-6.1); White Blood Count 4.39 K/uL (4.8-10.8)
[2020-04-06 07:34] LABS: BUN Creatinine Ratio 22.1 (10-20); Calcium 8.5 mg/dl (8.5-10.1); Creatinine Clr Calc Pharmacy 96.7 ml/min; Est GFR (African American) 118.9; Est GFR (Non-African American) 102.6; Potassium 3.9 mmol/L (3.5-5.1)
[2020-04-06] MEDS ORDERED: fentaNYL 100 MCG/HR TDSY TD SCH ×2 (09:00→10:00)
[2020-04-06] MEDS ORDERED: FUROSEMIDE 20 MG TAB PO SCH (09:00)
--- NOTE | 2020-04-06 09:15 | Palliative Care Consultation ---
Date of Consultation April 06, 2020 Assessment & Plan (1) Palliative care encounter: This is a 69 year old male who presented to the [facility] ED from home after he was experiencing episodes of unresponsiveness for which family administered Narcan which he responded well to and was then AAOx3. This patient has PMH of metastatic prostate cancer with mets to the bone. He has underwent a prostatectomy and palliative XRT. Additional PMH includes: CHF, DM2, CAD, severe protein-caloric malnutrition, and others. The patient has recently been seen by pain management for medication changes. For now, in the ED, his pain regimen is now: Fentanyl TD patch 100 mcg Q72 hours, Oxycodone 30 mg Q12 hours, & Oxycodone IR 5 mg Q4 PRN. Per review of the hospitalist notes, the patients family is interested in pursuing Hospice. Palliative Care was consulted in order to discuss goals of care, including Hospice and complete a POLST form. -I met with the patient in room 377-2, along with PGY-[address] Josemanuel Ruiz. patient was sitting upright in his bed AAOx3 in no apparent visual distress. -Patient very jovial during our conversation, does not recall losing consciousness at home. Does remember; however, gett Narcan 'up his nose'. He said "I dont want to go through that again, that took away all of my pain meds" -Pt reports pain in his bilateral hips, that is now constant, (usually intermittent), with radiation to his flank area. He reports 5/10 right now. Pt is ultimately really frail and cachectic. -The patients is able to care for him, along with support from his son and DIL. Eventually may need additional disabilities caregiver support. -Pain management has been following this patient as interim filling of outpatient palliative care pain management. -Pain management saw the patient this morning and have initiated the followin. Hydromorphone 0.5mg IV x 2 hours PRN breakthrough pain 2.Fentanyl patch increased to 125mcg/hr -Both Long Acting Oxycodone and Immediate Release Oxycodone have been D/C. -During my encounter, the patients (luxembourgish-only speaking), and daughter in law entered the room. The patients sonLaith is his POA. -Per the patients daughter in law, the plan is for him to return home with Hospice services. We discussed a POLST form and I provided her with one for her , Laith. -Patient ultimately could fill out the POLST, but he would like his son to do the 'dirty work'. -The pt was relatively functional from an ambulation standpoint. He stood with minimal assist x1 and was able to transfer to the bedside chair and was able to sit independently. -I called Laith at and left a voice mail to discuss further. -I also discussed with the window caser regarding setting up Hospice moving forward. -Would suggest patient remain inpatient for another 24 hours to assess breakthrough pain use and toleration of decrease in Fentanyl patch. -Hospice diagnosis would include: 1. Metastatic Prostate Cancer 2. Severe Protein- caloric malnutrition 3. CHF -PPS: 40% (2) Episode of unresponsiveness: (3) Prostate cancer metastatic to bone: (4) Cachexia: History of Present Illness Reason for Consultation: Goals of care Requesting Physician: Miranda Pantoja PA-C Attending Physician: Riki Nichols MD History of Present Illness This is a 69 year old male who presented to the [facility] ED from home after he was experiencing episodes of unresponsiveness for which family administered Narcan which he responded well to and was then AAOx3. This patient has PMH of metastatic prostate cancer with mets to the bone. He has underwent a prostatectomy and palliative XRT. Additional PMH includes: CHF, DM2, CAD, severe protein-caloric malnutrition, and others. The patient has recently been seen by pain management for medication changes. For now, in the ED, his pain regimen is now: Fentanyl TD patch 100 mcg Q72 hours, Oxycodone 30 mg Q12 hours, & Oxycodone IR 5 mg Q4 PRN. Per review of the hospitalist notes, the patients family is interested in pursuing Hospice. Palliative Care was consulted in order to discuss goals of care and complete a POLST form. Please see A/P for further details. Thank you kindly for involving the palliative care providers with this patient. Allergies Allergy/AdvReac Type Severity Reaction Status Date / Time Penicillins Allergy Mild Rash Verified 04/05/20 16:46 Home Medications Home Medications Medication Instructions Recorded Confirmed Type amiodarone 100 mg PO QAM 11/07/19 04/05/20 History metformin 1,000 mg PO QAM 11/07/19 04/05/20 History metformin 500 mg PO QPM 11/07/19 04/05/20 History aspirin 81 mg PO QAM 11/08/19 04/05/20 History docusate sodium [Colace] 100 mg PO BID #14 cap 11/18/19 04/05/20 Rx leuprolide (3 month) 22.5 mg (3 22.5 mg IM .[id number] ea 12/02/19 04/05/20 History month) intramuscular syringe kit mirtazapine 15 mg PO HS 03/04/20 04/05/20 History prochlorperazine maleate 10 mg PO Q6H PRN 03/04/20 04/05/20 History acetaminophen 500 - 1,000 mg PO Q6H PRN 03/15/20 04/05/20 History dexamethasone 2 mg PO DAILY 03/15/20 04/05/20 History furosemide 20 mg PO Q2D 03/15/20 04/05/20 History rdxwlzypywhv-zpfiyoyp-kgqdey 1 tab PO QAM 03/15/20 04/05/20 History omeprazole 40 mg PO QAM 30 Days #60 cap 03/16/20 04/05/20 Rx naloxone 4 mg/actuation nasal spray 1 spray INTRANASAL Q2M PRN #2 ea 03/24/20 1 Rx fentanyl 50 mcg/hr transdermal 1 patch TRANSDERMAL Q72H #5 ea 04/01/20 04/05/20 Rx patch oxycodone 10 mg tablet 10 mg PO Q4H PRN #60 tab MDD 8 04/01/20 04/05/20 Rx TABS/24 HOURS fentanyl 100 mcg/hr transdermal 100 mcg TOPICAL CQ72HR #5 ea 04/02/20 04/05/20 Rx patch gabapentin 100 mg PO TID 04/05/20 04/05/20 History Patient History Medical History Abdominal pain, lower Acute UTI Back pain Bone metastases Cachexia Cardiac arrhythmia Depression Diabetes mellitus, type 2 History of kidney stones Hyperlipidemia Hypertension Myocardial Infarction 06/2019--was taken to [facility] in [place] (had a stroke as well), did not have a heart cath/heart surgery--follows with Dr. Iyer at [facility], no blood thinners Palliative care encounter Prostate cancer 1999--bone metastases---sx/radiation/chemo Surgical History History of colonoscopy History of prostate biopsy malignant History of tooth extraction History of wisdom tooth extraction Hx of prostatectomy S/P cystourethroscopy with dilation of urethral stricture Family History Mother , age 99 old age Diabetes Father , age 78 prostate ca Prostate cancer Brother , liver cancer No problems noted. Brother No problems noted. Brother No problems noted. Brother No problems noted. Sister No problems noted. Sister No problems noted. Sister No problems noted. Son No problems noted. Daughter No problems noted. 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 Other Information That Helps Us Care for You: No Feels Safe at Home: Yes Childhood Exposure to Second-Hand Smoke: No Diet Comment: low carbs for diabetes management caffeine: Yes (2 cups per day) during the past year weight has: decreased > 10 lbs Dental Care, Regularly: Yes Physical Activity Frequency: Does not Exercise Seatbelt Use: always Sunscreen Use: Yes Assistive Devices: None Review of Systems Review of Systems: All systems reviewed & are unremarkable except as noted in HPI & below Physical Exam Constitutional: + thin, + cachectic and cooperative; + uncomfortable Eyes: PERRL, conjunctivae normal, anicteric sclerae Respiratory: normal respiratory effort; no respiratory distress, no labored breathing and does not use accessory muscles Auscultation: + diminished lung sounds Cardiovascular: RRR, no murmur, no edema Heart Sounds: + murmur Gastrointestinal (Abdomen): normal bowel sounds, soft, nontender, no hepatosplenomegaly right abdominal discomfort with radiation to the lower flank Skin: no rashes, warm and dry + pallor Psychiatric: A+Ox3, euthymic affect Results & Data ([facility]) Vital Signs (Past 12 Hours) Vital Signs Temp Pulse Resp BP Pulse Ox 04/06/20 07:59 36.5 C 100 H 18 132/78 93 04/06/20 00:07 36.8 C 81 15 99/61 L 93 PG Care Time/CCT Total # of Minutes Spent Total Time Spent with Patient: Total time spent is greater than 50% in coordination of care (as documented) at patient's floor/unit and/or counseling patient: 100 Coding Level of Care Code 18113 Inpt Consult Level 4 Diagnoses Palliative care encounter Z51.5 Episode of unresponsiveness R41.89 Prostate cancer metastatic to bone C61; C79.51 Cachexia R64 Time Spent (min) 100 Time Spent Midlevel Total time spent 100 minutes with > 50% of that time spent assessing the patient, discussing goals of care with the patient and family, along with discussing symptom mangement.
[2020-04-06] MEDS ORDERED: HYDROmorphone INJ 0.5 MG/0.5 ML SYR IV PRN (09:17)
--- NOTE | 2020-04-06 09:19 | Pain Management Consultation ---
Date of Consultation April 06, 2020 Assessment & Plan (1) Episode of unresponsiveness: (2) Cancer related pain: (3) Prostate cancer metastatic to bone: * I have initiated IV Hydromorphone 0.5mg x 2 hours PRN breakthrough pain * Fentanyl patch increased to 125mcg/hr * OxyContin 30mg BID discontinued * Continue Oxycodone 5-10 mg x 4 hours PRN pain * Patient is agreeable to hospice History of Present Illness Attending Physician: Riki Nichols MD History of Present Illness This is a 69 year old male with prostate cancer with mets to the bone. He has been seen by [facility] for medication management. He did have medication changes on 04/01/2020: Fentanyl was increased to 150mcg/hr. Last night he became unresponsive and family used Narcan. After the Narcan he woke up and and was sent to the Emergency Department. He is now AAOx3. He does have significant pain in the hips. The pain will come in waves. He is having difficulty sleeping due to the pain. Patient is unsure on what medications he is on and how often he takes them - his and son are managing his medications for him. He was able to have a bowel movement yesterday. Allergies Allergy/AdvReac Type Severity Reaction Status Date / Time Penicillins Allergy Mild Rash Verified 04/05/20 16:46 Home Medications Home Medications Medication Instructions Recorded Confirmed Type amiodarone 100 mg PO QAM 11/07/19 04/05/20 History metformin 1,000 mg PO QAM 11/07/19 04/05/20 History metformin 500 mg PO QPM 11/07/19 04/05/20 History aspirin 81 mg PO QAM 11/08/19 04/05/20 History docusate sodium [Colace] 100 mg PO BID #14 cap 11/18/19 04/05/20 Rx leuprolide (3 month) 22.5 mg (3 22.5 mg IM .[id number] ea 12/02/19 04/05/20 History month) intramuscular syringe kit mirtazapine 15 mg PO HS 03/04/20 04/05/20 History prochlorperazine maleate 10 mg PO Q6H PRN 03/04/20 04/05/20 History acetaminophen 500 - 1,000 mg PO Q6H PRN 03/15/20 04/05/20 History dexamethasone 2 mg PO DAILY 03/15/20 04/05/20 History furosemide 20 mg PO Q2D 03/15/20 04/05/20 History kyypvrhqoxne-kgiqnjvx-xbcghb 1 tab PO QAM 03/15/20 04/05/20 History omeprazole 40 mg PO QAM 30 Days #60 cap 03/16/20 04/05/20 Rx naloxone 4 mg/actuation nasal spray 1 spray INTRANASAL Q2M PRN #2 ea 03/24/20 04/05/20 Rx fentanyl 50 mcg/hr transdermal 1 patch TRANSDERMAL Q72H #5 ea 04/01/20 04/05/20 Rx patch oxycodone 10 mg tablet 10 mg PO Q4H PRN #60 tab MDD 8 04/01/20 04/05/20 Rx TABS/24 HOURS fentanyl 100 mcg/hr transdermal 100 mcg TOPICAL CQ72HR #5 ea 04/02/20 04/05/20 Rx patch gabapentin 100 mg PO TID 04/05/20 04/05/20 History Patient History Medical History Abdominal pain, lower Acute UTI Back pain Bone metastases Cachexia Cardiac arrhythmia Depression Diabetes mellitus, type 2 History of kidney stones Hyperlipidemia Hypertension Myocardial Infarction 06/2019--was taken to [facility] in [place] (had a stroke as well), did not have a heart cath/heart surgery--follows with Dr. Iyer at [facility], no blood thinners Palliative care encounter Prostate cancer 1999--bone metastases---sx/radiation/chemo Surgical History History of colonoscopy History of prostate biopsy malignant History of tooth extraction History of wisdom tooth extraction Hx of prostatectomy S/P cystourethroscopy with dilation of urethral stricture Family History Mother , age 99 old age Diabetes Father , age 78 prostate ca Prostate cancer Brother , liver cancer No problems noted. Brother No problems noted. Brother No problems noted. Brother No problems noted. Sister No problems noted. Sister No problems noted. Sister No problems noted. Son No problems noted. Daughter No problems noted. 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 He does appear to be in acute pain in the hospital bed. HEAD/FACE: Normocephalic and atraumatic. EYES: No drainage or conjunctival injection. ENT: Nose without bleeding or discharge. Dry oral mucosa. RESPIRATORY: Patient with unlabored breathing. No signs of respiratory distress. CHEST/AXILLA: Chest movement symmetrical. No deformities noted. ABDOMEN/GI: No distension BACK: Moves without difficulty SKIN: [place], warm and dry. No rash noted. MS/EXTREMITY: No swelling, no deformities. Moving extremities appropriately. NEURO: Alert and appears oriented. Speech is fluent. Cranial Nerves are grossly intact.
[2020-04-06] MEDS ORDERED: fentaNYL 25 MCG/HR TDSY TD SCH ×2 (09:30→10:00)
[2020-04-06] MEDS: AMIODARONE 200 MG TAB PO SCH (09:47)
[2020-04-06] MEDS: SENNA 8.6 MG TAB PO SCH (09:47)
[2020-04-06] MEDS: DOCUSATE SODIUM 100 MG CAP PO SCH ×2 (09:47→20:17)
[2020-04-06] MEDS: GABAPENTIN 100 MG CAP PO SCH ×3 (09:47→20:18)
[2020-04-06] MEDS: MULTIVITAMIN TAB PO SCH (09:48)
[2020-04-06] MEDS: PANTOprazole 40 MG TAB PO SCH (09:48)
[2020-04-06] MEDS: dexAMETHasone 1 MG TAB PO SCH (09:49)
[2020-04-06] MEDS: HEPARIN SOD 5,000 UNIT/0.5 ML VIAL SQ SCH (09:49)
[2020-04-06] MEDS: ASPIRIN 81 MG ECTAB PO SCH (09:49)
[2020-04-06] MEDS: INSULIN ASPART 100 UNITS/ML 3 ML PEN SC SCH ×4 (09:53→20:53)
[2020-04-06] MEDS: oxyCODONE HCL IR 5 MG TAB (IMMEDIATE RELEASE) PO PRN (11:56)
--- NOTE | 2020-04-06 13:51 | Electrocardiogram Report ---
Test Reason : Blood Pressure : / mmHG Vent. Rate : 108 BPM Atrial Rate : 108 BPM P-R Int : 164 ms QRS Dur : 094 ms QT Int : 348 ms P-R-T Axes : 074 012 090 degrees QTc Int : 466 ms Poor data quality, interpretation may be adversely affected Sinus tachycardia Inferior infarct (cited on or before 08-FEB-2020) Abnormal ECG When compared with ECG of 16-MAR-2020 08:16, T wave inversion now evident in Lateral leads QT has lengthened Confirmed by Tim Gama ([id number]) on 04/06/2020 1:50:39 PM Referred By: REFERRED SELF Confirmed By:Tim Gama
[2020-04-06] MEDS: oxyCODONE HCL 15 MG TABCR (OxyCONTIN) PO SCH (14:25)
--- NOTE | 2020-04-06 15:15 | Hospitalist Progress Note ---
Date of Service April 06, 2020 Assessment & Plan (1) Episode of unresponsiveness: 69yo M with PMH of metastatic prostate cancer to bone with h/o prostatectomy and palliative XRT, history of systolic CHF, DM II, history of CAD, protein-calorie malnutrition and other medical problems listed below who presents after episode of unresponsiveness at home. Mostly due to Narcotic since fentanyl patch was increased to 150mcg last Narcan was administered and pt woke up, then develop severe uncontrolled pain No focal neuro deficit Mental status back to baseline (2) Cancer related pain: Pain worsening yesterday after receiving narcan for unresponsiveness Pain management on board fentanyl Patch increased to 125mcg Received Dilaudid 0.5mgx2 Pain is control after the dilaudid injectionx2 Palliative care on board for goals of care Plan to transition to hospice on discharge- rn case mgr notified case management already gave family a list of agency to choose from If pain control, will consider to discharge tomorrow (3) Prostate cancer metastatic to bone: H/o prostatectomy, most oncological treatment out of state. Completed palliative XRT December - Jan 2020 Not currently receiving treatment pain management Dr. Simmons said that she spoke to oncology and recommended palliative care (4) Cardiac arrhythmia: 2/2 STEMI in beginning of 2019. Continue amiodarone (5) Diabetes mellitus, type 2: A1c 6.4 in November 2019 Continue to hold home agents Continue insulin novolog sliding scale Continue monitor BS (6) Cachexia: Cachectic in setting of metastatic cancer. Albumin of 3. Dietitian on board Will encourage to increase protein intake DVT Ppx: SQ heparin, will change to lovenox Code status: DNR PCP: Arturo Dispo: Possible discharge tomorrow if pain control Admission and Anticipated Discharge Date Admission Date: April 05, 2020 Subjective Pt was seen and examined Lying in bed with no distress Pt said that he feels good now after he just received dilaudid IV x2 He said that he does not have any pain now He would like to stay for tonight to make sure his pain control He is looking forward to go home tomorrow Denies any chest pain, palpitation, dizzness and SOB Physical Exam Physical Exam: General- frail Head- atraumatic Eyes- PERRL, EOMI, ENT- oropharynx clear Neck- supple, no JVD Lungs- clear to auscultation Heart- regular rhythm; no murmur Abdomen- normal bowel sounds, soft, nontender Extremities- no calf tenderness Neuro- alert, oriented x 3; PERRL, EOMI; no facial palsy; no dysarthria Skin- warm & dry Results & Data Results & Data ([facility]) Vital Signs (Past 12 Hours) Vital Signs Temp Pulse Resp BP Pulse Ox 04/06/20 07:59 36.5 C 100 H 18 132/78 93
[2020-04-06] MEDS ORDERED: CHECK fentaNYL PATCH PLACEMENT SCH (16:00)
[2020-04-06] MEDS: MIRTAZAPINE TAB 15 MG TAB PO SCH (20:18)
[2020-04-06] MEDS ORDERED: ENOXAPARIN INJ 40 MG/0.4 ML SYR SQ SCH (21:00)
[2020-04-07] MEDS: CHECK fentaNYL PATCH PLACEMENT SCH ×6 (00:36→16:06)
[2020-04-07] MEDS: oxyCODONE HCL IR 5 MG TAB (IMMEDIATE RELEASE) PO PRN ×4 (01:59→18:24)
[2020-04-07] MEDS: ACETAMINOPHEN 500 MG TAB PO PRN ×2 (02:00→19:02)
[2020-04-07 06:23] LABS: Hematocrit (blood only) 27.3 % (42-52); Hemoglobin 8.9 g/dL (14.0-18.0); Mean Corpuscular Hemoglobin 29.7 pg (25-34); Mean Corpuscular Hgb Conc 32.6 g/dL (32-36); Mean Platelet Volume 8.7 fL (7.4-10.4); Nucleated RBC # (auto) 0.05 K/uL (0-0); Nucleated RBC % (auto) 1.4 %; Platelet Count 199 K/uL (130-400); RDW Coefficient of Variation 15.9 % (11.5-14.5); RDW Standard Deviation 52.5 fL (36.4-46.3); White Blood Count 3.36 K/uL (4.8-10.8)
[2020-04-07 06:43] LABS: Estimated Average Glucose 131 mg/dl; Hemoglobin A1C 6.2 % (4.5-5.6)
[2020-04-07 06:52] LABS: BUN Creatinine Ratio 25.4 (10-20); Calcium 8.5 mg/dl (8.5-10.1); Creatinine Clr Calc Pharmacy 90.6 ml/min; Est GFR (African American) 115.7; Est GFR (Non-African American) 99.8; Potassium 3.8 mmol/L (3.5-5.1)
[2020-04-07] MEDS: MULTIVITAMIN TAB PO SCH (08:55)
[2020-04-07] MEDS: SENNA 8.6 MG TAB PO SCH (08:55)
[2020-04-07] MEDS: AMIODARONE 200 MG TAB PO SCH (08:55)
[2020-04-07] MEDS: ASPIRIN 81 MG ECTAB PO SCH (08:55)
[2020-04-07] MEDS: dexAMETHasone 1 MG TAB PO SCH (08:56)
[2020-04-07] MEDS: PANTOprazole 40 MG TAB PO SCH (08:56)
[2020-04-07] MEDS: GABAPENTIN 100 MG CAP PO SCH ×2 (08:56→13:34)
[2020-04-07] MEDS: DOCUSATE SODIUM 100 MG CAP PO SCH (08:57)
[2020-04-07] MEDS: INSULIN ASPART 100 UNITS/ML 3 ML PEN SC SCH ×3 (09:50→19:14)
--- NOTE | 2020-04-07 15:31 | Hospitalist Progress Note ---
Date of Service April 07, 2020 Assessment & Plan (1) Episode of unresponsiveness: likely due to Unintentional Drug overdose form narcotic pain medications requiring use of Narcan when outpatient -69yo M with PMH of metastatic prostate cancer to bone with h/o prostatectomy and palliative XRT, history of systolic CHF, DM II, history of CAD, protein- calorie malnutrition and other medical problems listed below who presents after episode of unresponsiveness at home. -Mostly due to Narcotic since fentanyl patch was increased to 150mcg on 04/01/2020 -Narcan was administered and pt woke up, then develop severe uncontrolled pain (2) Cancer related pain: -pain medications was adjusted on this hospital stay with pain management and palliative care consultation discharge to [facility] hospice [facility] discharge medications sent electronically to [facility] [address] [place] [address] of senna, colace, Miralax to prevent constipation Fentanyl patch of 125 mcg daily (4 patches), Oxycodone as 5 to 10 mg every 4 ho urs as needed for moderate to severe pain (30 tablets prescribed) [place] PDMP was reviewed and discharging hospitalist aware that patient has had multiple narcotic pain medications filled out before and aware that patient's unresponsive episode at home likely due to excessive narcotic pain medications. However, given patient's cancer related pain and recent history of medication adjustments in conjunction with pain management service and palliative care service and that patient is now on home hospice care, that these prescriptions are appropriate to treat pain. The plan is then for home hospice agency to take over the care of managing pain/discomforts of patient at home after this hospital stay (3) Prostate cancer metastatic to bone: -H/o prostatectomy, most oncological treatment out of state. -Completed palliative XRT December - Jan 2020 -Not currently receiving treatment -pain management Dr. Simmons said that she spoke to oncology and recommended palliative care (4) Cardiac arrhythmia: History of Cardiac arrhythmia in the past and on amiodarone -secondary to STEMI in beginning of 2019. -currently in normal sinus rhythm on this admission -Continue amiodarone (5) Diabetes mellitus, type 2: -HbA1c 6.4 in November 2019 -Continue to hold home diabetes medication on discharge to home hospice (6) Cachexia: -Cachectic in setting of metastatic cancer. Albumin of 3. -evaluated by dietitian Code status: DNR/DNI Primary care appointment 04/13/2020 11:20 AM Provider Roseanne Morris MD Department General Internal Medicine [facility] 06/11/2020 2:00 PM Provider Roseanne Morris MD Department General Internal Medicine [facility] Admission and Anticipated Discharge Date Admission Date: April 05, 2020 Subjective Patient seen and examined at bedside and no acute distress. Patient does not have acute pain. no nausea. no vomiting. no shortness of breathing. breathing on room air. no dizziness. no headache Review of Systems Review of Systems: All systems reviewed & are unremarkable except as noted in Subjective Physical Exam Constitutional: + thin and cooperative Eyes: PERRL, conjunctivae normal, anicteric sclerae EOM intact bilaterally ENMT: external ear and nose normal, oropharynx normal Neck: normal visual inspection Respiratory: normal respiratory effort, lungs clear to auscultation Cardiovascular: Rate/Rhythm: regular rate and regular rhythm Gastrointestinal (Abdomen): Inspection/Auscultation: normal bowel sounds Percussion/Palpation: abdomen soft Musculoskeletal: Head/Neck/Chest: normocephalic and head atraumatic Neurologic: PERRL, EOMI, accommodation nl, no face palsy, no dysarthria CN's II-XI intact bilaterally Psychiatric: A+Ox3, euthymic affect Results & Data Results & Data ([facility]) Vital Signs (Past 12 Hours) Vital Signs Temp Pulse Resp BP Pulse Ox 04/07/20 08:14 36.4 C L 74 18 111/67 94
[2020-04-07] MEDS ORDERED: POLYETHYLENE (MIRALAX) 17 GM PACK PO ONE (15:32)
--- NOTE | 2020-04-07 16:19 | Discharge Summary ---
Date of Service April 07, 2020 Admission HPI Per Admitting Provider This is a 69yo M with PMH of metastatic prostate cancer to bone with h/o prostatectomy and palliative XRT, history of systolic CHF, DM II, history of CAD, protein-calorie malnutrition and other medical problems listed below who presents after episode of unresponsiveness at home. Patient follows with pain management, who saw patient 4 days ago in clinic and changed pain regimen, increasing fentanyl patch to 150 mcg every 72 hours. Patient lives at home with family and had episode of unresponsiveness earlier today and family administered Narcan. Patient then came to ED with severe, uncontrolled pain. Was evaluated after receiving IV fentanyl and was much more comfortable. Besides pain in back, patient is otherwise comfortable. Denies any chills, lightheadedness, visual changes, chest pain, palpitations, shortness of breath, nausea, vomiting, abdominal pain, dysuria or diarrhea. Endorses having a bowel movement earlier today but has struggled with constipation in the past while on narcotics. Principal Diagnosis Episode of unresponsiveness: likely due to Unintentional Drug overdose form narcotic pain medications requiring use of Narcan when outpatient Cancer related pain Prostate cancer metastatic to bone Cachexia Diabetes mellitus, type 2 History of Cardiac arrhythmia in the past and on amiodarone Discharge Exam Constitutional + thin and cooperative Eyes PERRL, conjunctivae normal, anicteric sclerae EOM intact bilaterally ENMT external ear and nose normal, oropharynx normal Neck normal visual inspection Respiratory normal respiratory effort, lungs clear to auscultation Cardiovascular Rate/Rhythm: regular rate and regular rhythm Gastrointestinal (Abdomen) Inspection/Auscultation: normal bowel sounds Percussion/Palpation: abdomen soft Musculoskeletal Head/Neck/Chest: normocephalic and head atraumatic Neurologic PERRL, EOMI, accommodation nl, no face palsy, no dysarthria CN's II-XI intact bilaterally Psychiatric A+Ox3, euthymic affect Discharge Data Allergies Allergy/AdvReac Type Severity Reaction Status Date / Time Penicillins Allergy Mild Rash Verified 04/05/20 16:46 Consultations 04/05/20 17:51 ED Decision to Admit Stat 04/05/20 20:33 Consult Case Management - Discharge Planning Routine Consult Pain Management Routine Consult Palliative Care Routine Hospital Course (1) Episode of unresponsiveness: likely due to Unintentional Drug overdose form narcotic pain medications requiring use of Narcan when outpatient -69yo M with PMH of metastatic prostate cancer to bone with h/o prostatectomy and palliative XRT, history of systolic CHF, DM II, history of CAD, protein- calorie malnutrition and other medical problems listed below who presents after episode of unresponsiveness at home. -Mostly due to Narcotic since fentanyl patch was increased to 150mcg on 04/01/2020 -Narcan was administered and pt woke up, then develop severe uncontrolled pain (2) Cancer related pain: -pain medications was adjusted on this hospital stay with pain management and palliative care consultation discharge to [facility] hospice ("[facility]") discharge medications sent electronically to [facility], [place] of senna, colace, Miralax to prevent constipation Fentanyl patch of 125 mcg daily (4 patches), Oxycodone as 5 to 10 mg every 4 hours as needed for moderate to severe pain (30 tablets prescribed) [place] PDMP was reviewed and discharging hospitalist aware that patient has had multiple narcotic pain medications filled out before and aware that patient's unresponsive episode at home likely due to excessive narcotic pain medications. However, given patient's cancer related pain and recent history of medication adjustments in conjunction with pain management service and palliative care service and that patient is now on home hospice care, that these prescriptions are appropriate to treat pain. The plan is then for home hospice agency to take over the care of managing pain/discomforts of patient at home after this hospital stay (3) Prostate cancer metastatic to bone: -H/o prostatectomy, most oncological treatment out of state. -Completed palliative XRT December - Jan 2020 -Not currently receiving treatment -pain management Dr. Simmons said that she spoke to oncology and recommended palliative care (4) Cardiac arrhythmia: History of Cardiac arrhythmia in the past and on amiodarone -secondary to STEMI in beginning of 2019. -currently in normal sinus rhythm on this admission -Continue amiodarone (5) Diabetes mellitus, type 2: -HbA1c 6.4 in November 2019 -Continue to hold home diabetes medication on discharge to home hospice (6) Cachexia: -Cachectic in setting of metastatic cancer. Albumin of 3. -evaluated by dietitian Code status: DNR/DNI Primary care appointment 04/13/2020 11:20 AM Provider Roseanne Morris MD Department General [facility] 06/11/2020 2:00 PM Provider Roseanne Morris MD Department General [facility] Total Time Total Time Spent Total Time Spent (In Minutes): 40 minutes Total Time Includes: Examination of the Patient, Discharge Planning, Medication Reconciliation and Communication With Other Providers Discharge Plan Discharge Items Patient Disposition: Hospice - Home Reason For Visit: PAIN CONTROL Discharge Diagnosis: Episode of unresponsiveness: likely due to Unintentional Drug overdose form narcotic pain medications requiring use of Narcan when outpatient Cancer related pain Prostate cancer metastatic to bone Cachexia Diabetes mellitus, type 2 History of Cardiac arrhythmia in the past and on amiodarone Condition on Discharge: Fair Activity: Per Instructions section Non-emergency contact: Primary Care Provider Call non-emergency contact if: you have any medication questions and your pain is not controlled Follow-up/Referrals: Roseanne Morris MD [Primary Care Provider] - (Date & Time 04/13/2020 11:20 AM Provider Roseanne Morris MD Department General Internal [facility] ) Diet: Regular Addtl Attending Provider Instructions: discharge to [facility] hospice [facility]") discharge medications sent electronically to [facility] [address] [place] [address], [place] of senna, colace, Miralax to prevent constipation Fentanyl patch of 125 mcg daily (4 patches), Oxycodone as 5 to 10 mg every 4 hours as needed for moderate to severe pain (30 tablets prescribed) [place] PDMP was reviewed and discharging hospitalist aware that patient has had multiple narcotic pain medications filled out before and aware that patient's unresponsive episode at home likely due to excessive narcotic pain medications. However, given patient's cancer related pain and recent history of medication adjustments in conjunction with pain management service and palliative care service and that patient is now on home hospice care, that these prescriptions are appropriate to treat pain. The plan is then for home hospice agency to take over the care of managing pain/discomforts of patient at home after this hospital stay Addtl [employer] Provider Instructions: Primary care appointment 04/13/2020 11:20 AM Provider Roseanne Morris MD Department General [facility] 06/11/2020 2:00 PM Provider Roseanne Morris MD Department General [facility] Pending Studies at Discharge: No Stand-Alone Forms: My DIY Medications and DC Order Prescriptions: New sennosides [Senokot] 8.6 mg Tablet 8.6 mg PO QAM 30 Days Qty: 30 RF: 0 polyethylene glycol 3350 [Miralax] 17 gram Powder In Packet 17 g PO DAILY PRN (Reason: constipation) 30 Days Qty: 30 RF: 0 docusate sodium 100 mg Capsule 100 mg PO BID 30 Days Qty: 60 RF: 0 fentanyl 100 mcg/hr Patch 72 Hour 100 mcg transdermal Q3D 12 Days Qty: 4 RF: 0 fentanyl 25 mcg/hr Patch 72 Hour 25 mcg transdermal Q3D 12 Days Qty: 4 RF: 0 oxycodone 5 mg Tablet 5 - 10 mg PO Q4H PRN (Reason: moderate to severe pain) 4 Days Qty: 30 RF: 0 Continued Lupron Depot (3 month) 22.5 mg syringe kit 22.5 mg IM .[id number] RF: 0 Narcan 4 mg/actuation spray,non-aerosol 1 spray intranasal Q2M PRN (Reason: opioid overdose) Qty: 2 RF: 0 metformin 500 mg tablet 500 mg PO QPM RF: 0 metformin 500 mg tablet 1,000 mg PO QAM RF: 0 amiodarone 200 mg tablet 100 mg PO QAM RF: 0 aspirin 81 mg Tablet,Delayed Release (Dr/Ec) 81 mg PO QAM RF: 0 mirtazapine 15 mg tablet 15 mg PO HS RF: 0 prochlorperazine maleate 10 mg tablet 10 mg PO Q6H PRN (Reason: Nausea And Vomiting) RF: 0 dexamethasone 4 mg tablet 2 mg PO DAILY RF: 0 acetaminophen 500 mg Tablet 500 - 1,000 mg PO Q6H PRN (Reason: Pain) RF: 0 kescipbqtevm-nftjkbvl-ggdjmy Tablet 1 tab PO QAM RF: 0 furosemide 20 mg tablet 20 mg PO Q2D RF: 0 omeprazole 20 mg capsule,delayed release(DR/EC) 40 mg PO QAM 30 Days Qty: 60 RF: 0 gabapentin 100 mg capsule 100 mg PO TID RF: 0 Discontinued oxycodone 10 mg tablet 10 mg PO Q4H MDD 8 TABS/24 HOURS PRN (Reason: Breakthrough Pain) Qty: 60 RF: 0 fentanyl 50 mcg/hr patch 72 hour 1 patch transdermal Q72H Qty: 5 RF: 0 fentanyl 100 mcg/hr patch 72 hour 100 mcg topical CQ72HR Qty: 5 RF: 0 docusate sodium [Colace] 100 mg capsule 100 mg PO BID Qty: 14 RF: 0 Discharge Orders: Discharge Order (Routine); Ordered 04/07/20 Ordered By: Walter Garcia/Other Patient Handouts: Managing Type 2 Diabetes Admission Data Admit Date/Time: 04/05/20 19:13 Attending Provider: Walter Nunez Admit Provider: Walter Nunez Primary Care Provider: Roseanne Morris Other Providers: Walter Nunez ; Camacho Alvarez ; Ann-Marie Moreno
[2020-04-09] MEDS ORDERED: INFLUENZA Vaccine HIGH DOSE 65+yrs 0.5 mL Syr IM ONE (08:00)
== END 2020-04-07 19:35 | disposition hospice, home (50) | DRG 917 ==
LOC: ED 15:45 → SUATTDRO 19:13 → 3N 19:13

== ENCOUNTER 2020-05-08 17:25 | Inpatient (IN) ==
[2020-05-08] MEDS ORDERED: SODIUM CHLORIDE 0.9% 1000ML 250 ML IV ONE (17:47)
[2020-05-08] MEDS ORDERED: MoRPHine SULFATE 2 MG/ML CARP IV STA ×2 (17:47→18:56)
[2020-05-08] MEDS ORDERED: ONDANSETRON INJ 2 MG/ML 2 ML VIAL IV STA (17:47)
--- NOTE | 2020-05-08 17:56 | Emergency Department Note ---
History of Present Illness General Chief complaint: Pelvic Pain Stated complaint: SEVERE PAIN - PELVIC AND SPINAL Time Seen by Provider: 05/08/20 17:39 Source: patient and family Limitations: patient cooperation History of Present Illness Provider complaint: Back pain and pelvis pain Onset (ago): month(s) Location: back and pelvis Radiation: other ("Everywhere") Severity: severe Pain Consistency: + constant Maximum Pain Intensity: 10 Relieved By: + medication Associated symptoms: no chest pain, no cough, no fever/chills, no headaches, no nausea/vomiting and no shortness of breath This is a 69-year-old male with a history of metastatic prostate cancer presenting with pain in his back and pelvis for months. He has multiple mets to the bone and has pain throughout his pelvis and lower back as well as radiating everywhere. He was previously on hospice and taking oxycodone 10 mg and using a fentanyl patch. He was recently prescribed oral morphine but he refuses to take it according to his son. He is paranoid that his son or are trying to poison him. He also has not been eating or drinking very much because of fear for poisoning. His son states that he has no prior history of psychiatric illness. The last time he took the morphine was yesterday. He has had no new complaints such as fever, cough or cold symptoms, chest pain or shortness of breath. No known exposure to COVID-19. He denies any headache. Home Medications Home Medications Medication Instructions Recorded Confirmed Type amiodarone 100 mg PO QAM 11/07/19 04/05/20 History metformin 1,000 mg PO QAM 11/07/19 04/05/20 History metformin 500 mg PO QPM 11/07/19 04/05/20 History aspirin 81 mg PO QAM 11/08/19 04/05/20 History leuprolide (3 month) 22.5 mg (3 22.5 mg IM .[id number] ea 12/02/19 04/05/20 History month) intramuscular syringe kit mirtazapine 15 mg PO HS 03/04/20 04/05/20 History prochlorperazine maleate 10 mg PO Q6H PRN 03/04/20 04/05/20 History acetaminophen 500 - 1,000 mg PO Q6H PRN 03/15/20 04/05/20 History dexamethasone 2 mg PO DAILY 03/15/20 04/05/20 History furosemide 20 mg PO Q2D 03/15/20 04/05/20 History mskptyaufdvc-smmduyzy-sefoiv 1 tab PO QAM 03/15/20 04/05/20 History omeprazole 40 mg PO QAM 30 Days #60 cap 03/16/20 04/05/20 Rx naloxone 4 mg/actuation nasal spray 1 spray INTRANASAL Q2M PRN #2 ea 03/24/20 04/05/20 Rx gabapentin 100 mg PO TID 04/05/20 04/05/20 History Allergies Allergy/AdvReac Type Severity Reaction Status Date / Time Penicillins Allergy Mild Rash Verified 04/05/20 16:46 Past Med/Surg History Medical History (Updated 05/08/20 @ 19:22 by Josemanuel Beth MD) Abdominal pain, lower Acute UTI Back pain Bone metastases Cachexia Depression Diabetes mellitus, type 2 History of kidney stones Hyperlipidemia Hypertension Myocardial Infarction 06/2019--was taken to [facility] in [place] (had a stroke as well), did not have a heart cath/heart surgery--follows with Dr. Iyer at [facility], no blood thinners Prostate cancer 1999--bone metastases---sx/radiation/chemo Surgical History History of colonoscopy History of prostate biopsy malignant History of tooth extraction History of wisdom tooth extraction Hx of prostatectomy S/P cystourethroscopy with dilation of urethral stricture Family History Mother , age 99 old age Diabetes Father , age 78 prostate ca Prostate cancer Brother , liver cancer No problems noted. Brother No problems noted. Brother No problems noted. Brother No problems noted. Sister No problems noted. Sister No problems noted. Sister No problems noted. Son No problems noted. Daughter No problems noted. 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 and A total of 10 systems reviewed and were otherwise negative Physical Exam Vital Signs Vital Signs - 24 hr 05/08/20 17:31 Temperature 36.4 C L Temperature Source Oral Pulse Rate 98 H Respiratory Rate 12 Blood Pressure 107/71 Blood Pressure Mean 83 Blood Pressure Position Lying Pulse Oximetry 93 Oxygen Delivery Method Room Air Sepsis Recent Fever Within 48 Hours No Sepsis New/Unexplained Change in Mental Status No Sepsis Action Taken by Nursing No Action Required Constitutional: Vital signs reviewed. Eyes: Pupils are equal round reactive to light. Conjunctiva are noninjected. ENT: Pharynx is clear without erythema or exudate. Mucous membranes are dry. Respiratory: Clear to auscultation bilaterally. Breath sounds are equal bilaterally. Cardiovascular: Regular rate and rhythm. No rubs or gallops. GI: Soft, nondistended with diffuse tenderness. Bowel sounds are present. Musculoskeletal: No peripheral edema. Integumentary: No cyanosis. or jaundice. Neurological: The patient is awake and alert. No focal deficits. Psychiatric: Unable to assess. He will answer most questions but sometimes he will just shrug when I asked him a question in Australian and when his son asks him the same question in [place]ian. Course Administered Medications Discontinued Medications Sodium Chloride (Nss 1000ml) 250 mls @ 999 mls/hr IV .Q16M ONE Stop: 05/08/20 18:02 Last Admin: 05/08/20 18:18 Dose: 999 mls/hr Documented by: [id number] Morphine Sulfate (Morphine Sulfate 2 Mg/Ml Carp) 2 mg IV NOW STA Stop: 05/08/20 17:48 Last Admin: 05/08/20 18:18 Dose: 2 mg Documented by: [id number] Morphine Sulfate (Morphine Sulfate 2 Mg/Ml Carp) 2 mg IV NOW STA Stop: 05/08/20 18:57 Last Admin: 05/08/20 19:07 Dose: 2 mg Documented by: [id number] Ondansetron HCl (Ondansetron Inj 2 Mg/Ml 2 Ml Vial) 4 mg IV NOW STA Stop: 05/08/20 17:48 Last Admin: 05/08/20 18:18 Dose: 4 mg Documented by: [id number] Medical Decision Making Differential Diagnosis Bony metastases, pathologic fracture, intracranial mass, intracranial hemorrhage, metabolic derangement, intractable pain Medical Records Attestation: I reviewed the patient's medical records. The patient was admitted last month for intractable pain as well as unintentiona l overdose on opiates. Home Medications Current Medication List: was personally reviewed by me Laboratory Data Attestation: I reviewed the patient's lab results. Result diagrams: 05/08/20 18:10 05/08/20 18:10 Lab Results 05/08/20 05/08/20 05/08/20 Range/Units 18:10 18:10 18:53 WBC 4.75 L (4.8-10.8) K/uL RBC 3.43 L (4.7-6.1) M/uL Hgb 10.2 L (14.0-18.0) g/dL Hct 31.6 L (42-52) % MCV 92.1 (80-100) fL MCH 29.7 (25-34) pg MCHC 32.3 (32-36) g/dL RDW Std Deviation 60.4 H (36.4-46.3) fL RDW Coeff of Jesus 18.2 H (11.5-14.5) % Plt Count 155 (130-400) K/uL MPV 9.3 (7.4-10.4) fL Immature Gran % (Auto) 0.6 % Neut % (Auto) 82.4 % Lymph % (Auto) 6.7 % [place] % (Auto) 9.5 % Eos % (Auto) 0.4 % Baso % (Auto) 0.4 % Neut # (Auto) 3.91 (1.4-6.5) K/uL Lymph # (Auto) 0.32 L (1.2-3.4) K/uL [place] # (Auto) 0.45 (0.11-0.59) K/uL Eos # (Auto) 0.02 (0-0.5) K/uL Baso # (Auto) 0.02 (0-0.2) K/uL Immature Gran # (Auto) 0.03 H (0.00-0.02) K/uL Absolute Nucleated RBC 0.06 H (0-0) K/uL Nucleated RBC % (auto) 1.2 % Sodium 132 L (136-145) mmol/L Potassium 4.4 (3.5-5.1) mmol/L Chloride 100 (98-107) mmol/L Carbon Dioxide 27 (21-32) mmol/L Anion Gap 5.0 (3-11) BUN 22 H (7-18) mg/dl Creatinine 0.67 (0.6-1.4) mg/dl Est Cr Clr Drug Dosing Not Reportable Est GFR ( Amer) 112.8 Est GFR (Non-Af Amer) 97.4 BUN/Creatinine Ratio 32.8 H (10-20) Glucose 167 H (70-99) mg/dl Calcium 8.5 (8.5-10.1) mg/dl Total Bilirubin 0.4 (0.2-1) mg/dl AST 133 H (15-37) U/L ALT 30 (12-78) U/L Alkaline Phosphatase 1309 H (45-117) U/L Total Protein 6.8 (6.4-8.2) gm/dl Albumin 3.0 L (3.4-5.0) gm/dl Globulin 3.8 (2.5-4.0) gm/dl Albumin/Globulin Ratio 0.8 L (0.9-2) Urine Color Yellow Urine Appearance Clear (Clear) Urine pH 5.5 (4.5-7.5) Ur Specific [place] 1.022 (1.000-1.030) Urine Protein Trace H (Negative) Urine Glucose (UA) Negative (Negative) Urine Ketones Negative (Negative) Urine Blood Negative (Negative) Urine Nitrite Negative (Negative) Urine Bilirubin Negative (Negative) Urine Urobilinogen Negative (Negative) Ur Leukocyte Esterase Negative (Negative) Urine WBC (Auto) 1-5 (0-5) /hpf Urine RBC (Auto) 0-4 (0-4) /hpf U Hyaline Cast (Auto) 1-5 (0-5) /lpf U Epithel Cells (Auto) 0-5 (0-5) /lpf Urine Bacteria (Auto) Negative (Negative) Imaging Data Radiologist's Impression: HEAD CT NONCONTRAST CT DOSE: HISTORY: paranoia eval for mass/mets TECHNIQUE: Multiaxial CT images of the head were performed without the use of intravenous contrast. Automated exposure control was utilized for this study. A dose lowering technique was utilized adhering to the principles of ALARA. Comparison: None. Findings: A few opacified right inferior mastoid air cells. The paranasal sinuses and left mastoid air cells are clear. Osteoblastic metastatic disease most pronounced at the skull base. There is no mass, hematoma, midline shift, acute infarct. White matter hypodensity is nonspecific but suggestive of microvascular ischemic change. The ventricles and sulci demonstrate mild age- related involutional changes. Impression: No acute intracranial abnormality. Osteoblastic metastatic disease identified at the skull base. ACT 112: Negative or not required by law. Electronically signed by: Kieran Mercado M.D. 05/08/2020 7:[address] DOSE: 1269.17 mGy.cm HISTORY: Severe back pain. TECHNIQUE: Multiaxial CT images of the lumbar spine were performed and reformatted in the sagittal and coronal plane without the use of contrast. A dose lowering technique was utilized adhering to the principles of ALARA. COMPARISON: Lumbar spine CT 02/08/2020. FINDINGS: There is extensive osteoblastic metastatic disease seen throughout the lumbar spine and sacrum which has progressed. No acute fractures identified. Destructive changes seen within T12, L1, and the bilateral T12 ribs has progressed. Right-sided sacral neural foraminal narrowing is again noted due to the expansile metastases. This is also not significant change. Progressive destructive lesion at L4 is noted. No subluxation. Disc spaces remain preserved. Evaluation the central canal is suboptimal due to the CT technique. However, no significant central canal narrowing identified. IMPRESSION: 1. Extensive osteoblastic metastatic disease which has progressed. 2. No definite acute fractures. 3. Progressive destructive changes within the lower thoracic and lumbar spine. 4. No change in the right-sided sacral neural foraminal narrowing due to the expansile metastases. ACT 112: Negative or not required by law. Electronically signed by: Kieran Mercado M.D. 05/08/2020 7:01 PM XR chest 1V portable HISTORY: Weakness. Evaluate for pneumonia. COMPARISON: Chest 04/05/2020. FINDINGS: Scattered osteoblastic metastatic disease is again noted. No pneumothorax. No pleural effusions. The heart is normal in size. No new focal lung consolidations to suggest pneumonia. No evidence for pulmonary edema. IMPRESSION: No significant change compared to the prior study. No acute process. Osteoblasti c metastatic disease is again noted. ACT 112: Negative or not required by law. Electronically signed by: Kieran Mercado M.D. 05/08/2020 6:49 PM MDM Narrative I did evaluate the patient as noted above. I did obtain history from the patien t as well as his son. He is mostly cooperative with answering questions but will sometimes just shrug when asking the question or even when his son asks him the same question in [place]ian. The nurse tells me that she spoke to the son individually and he stated that basically he needed his father placed. They were unable to care for him at home due to his paranoia. IV access was established. The patient was given normal saline IV. I also treated him with morphine 2 mg IV and Zofran 4 mg IV. He had persistent pain and was given additional 2 mg of morphine IV. I did place an order for continuous cardiac monitoring. The monitor showed normal sinus rhythm at a rate of 98 bpm. I did order and personally reviewed the images of the patient's chest x-ray as described above. There is no evidence of pneumonia. I did order a urine analysis. He does not have a UTI. I did order and review the patient's blood work as noted in the electronic medical record. He has mild hyponatremia. Alk phos is 1309 likely from bony metastases. He has chronic anemia with a hemoglobin of 10. I did order a CT of the head and lumbar spine. I did review the images myself as well as the radiology report as described above. There is no evidence of intracranial abnormality. No evidence of acute fracture to the lumbar spine. He does have persistent metastases throughout the lower thoracic and lumbar spine as well as skull base. I did discuss the test results with the patient. I did discuss the case with the hospitalist and continuous pillowcase cutter. Impression & Plan Intractable pain, Prostate cancer metastatic to bone, Anemia, Paranoia, Acute hyponatremia Discharge Plan Visit Data Chief Complaint: Pelvic Pain Stated Complaint: SEVERE PAIN - PELVIC AND SPINAL ED Provider: Josemanuel Beth Discharge Problem: Intractable pain, Prostate cancer metastatic to bone, Anemia, Paranoia, Acute hyponatremia Patient Disposition: Being Evaluated by Hospitalist Forms Stand Alone Forms: My [facility] Prescriptions Prescriptions: No Action Lupron Depot (3 month) 22.5 mg syringe kit 22.5 mg IM .[id number] RF: 0 Narcan 4 mg/actuation spray,non-aerosol 1 spray intranasal Q2M PRN (Reason: opioid overdose) Qty: 2 RF: 0 metformin 500 mg tablet 500 mg PO QPM RF: 0 metformin 500 mg tablet 1,000 mg PO QAM RF: 0 amiodarone 200 mg tablet 100 mg PO QAM RF: 0 aspirin 81 mg Tablet,Delayed Release (Dr/Ec) 81 mg PO QAM RF: 0 mirtazapine 15 mg tablet 15 mg PO HS RF: 0 prochlorperazine maleate 10 mg tablet 10 mg PO Q6H PRN (Reason: Nausea And Vomiting) RF: 0 dexamethasone 4 mg tablet 2 mg PO DAILY RF: 0 acetaminophen 500 mg Tablet 500 - 1,000 mg PO Q6H PRN (Reason: Pain) RF: 0 erancdnfdkzn-blqbnkye-psfdcm Tablet 1 tab PO QAM RF: 0 furosemide 20 mg tablet 20 mg PO Q2D RF: 0 omeprazole 20 mg capsule,delayed release(DR/EC) 40 mg PO QAM 30 Days Qty: 60 RF: 0 gabapentin 100 mg capsule 100 mg PO TID RF: 0 Referrals Referrals: Roseanne Morris MD [Primary Care Provider] -
[2020-05-08 18:20] LABS: Basophils # (auto) 0.02 K/uL (0-0.2); Basophils % (auto) 0.4 %; Eosinophils # (auto) 0.02 K/uL (0-0.5); Eosinophils % (auto) 0.4 %; Hematocrit (blood only) 31.6 % (42-52); Hemoglobin 10.2 g/dL (14.0-18.0); Immature Granulocytes # (auto) 0.03 K/uL (0.00-0.02); Immature Granulocytes % (auto) 0.6 %; Lymphocytes # (auto) 0.32 K/uL (1.2-3.4); Lymphocytes % (auto) 6.7 %; Mean Corpuscular Hemoglobin 29.7 pg (25-34); Mean Corpuscular Hgb Conc 32.3 g/dL (32-36); Mean Corpuscular Volume 92.1 fL (80-100); Mean Platelet Volume 9.3 fL (7.4-10.4); Monocytes # (auto) 0.45 K/uL (0.11-0.59); Monocytes % (auto) 9.5 %; Neutrophils # (auto) 3.91 K/uL (1.4-6.5); Neutrophils % (auto) 82.4 %; Nucleated RBC # (auto) 0.06 K/uL (0-0); Nucleated RBC % (auto) 1.2 %; Platelet Count 155 K/uL (130-400); RDW Coefficient of Variation 18.2 % (11.5-14.5); RDW Standard Deviation 60.4 fL (36.4-46.3); Red Blood Count 3.43 M/uL (4.7-6.1); White Blood Count 4.75 K/uL (4.8-10.8)
[2020-05-08 18:41] LABS: Alanine Aminotransferase 30 U/L (12-78); Aspartate Aminotransferase 133 U/L (15-37); BUN Creatinine Ratio 32.8 (10-20); Blood Urea Nitrogen 22 mg/dl (7-18); Calcium 8.5 mg/dl (8.5-10.1); Carbon Dioxide 27 mmol/L (21-32); Chloride 100 mmol/L (98-107); Est GFR (African American) 112.8; Est GFR (Non-African American) 97.4; Glucose 167 mg/dl (70-99); Potassium 4.4 mmol/L (3.5-5.1); Sodium 132 mmol/L (136-145)
--- NOTE | 2020-05-08 18:50 | XRay Report ---
XR chest 1V portable HISTORY: Weakness. Evaluate for pneumonia. COMPARISON: Chest 04/05/2020. FINDINGS: Scattered osteoblastic metastatic disease is again noted. No pneumothorax. No pleural effus ions. The heart is normal in size. No new focal lung consolidations to suggest pneumonia. No evidence for pulmonary edema. IMPRESSION: No significant change compared to the prior study. No acute process. Osteoblastic metastatic disease is again noted. ACT 112: Negative or not required by law. Electronically signed by: Kieran Mercado M.D. 05/08/2020 6:49 PM
[2020-05-08 18:56] LABS: Albumin Globulin Ratio 0.8 (0.9-2); Alkaline Phosphatase 1309 U/L (45-117); Bilirubin,Total 0.4 mg/dl (0.2-1); Globulin 3.8 gm/dl (2.5-4.0); Total Protein 6.8 gm/dl (6.4-8.2)
--- NOTE | 2020-05-08 19:03 | CT Scan Report ---
LUMBAR SPINE CT CT DOSE: 1269.17 mGy.cm HISTORY: Severe back pain. TECHNIQUE: Multiaxial CT images of the lumbar spine were performed and reformatted in the sagittal an d coronal plane without the use of contrast. A dose lowering technique was utilized adhering to the principles of ALARA. COMPARISON: Lumbar spine CT 02/08/2020. FINDINGS: There is extensive osteoblastic metastatic disease seen throughout the lumbar spine and sac rum which has progressed. No acute fractures identified. Destructive changes seen within T12, L1, and the bilateral T12 ribs has progressed. Right-sided sacral neural foraminal narrowing is again noted due to the expansile metastases. This is also not significant change. Progressive destructive lesion at L4 is noted. No subluxation. Disc spaces remain preserved. Evaluation the central canal is subopti mal due to the CT technique. However, no significant central canal narrowing identified. IMPRESSION: 1. Extensive osteoblastic metastatic disease which has progressed. 2. No definite acute fractures. 3. Progressive destructive changes within the lower thoracic and lumbar spine. 4. No change in the right-sided sacral neural foraminal narrowing due to the expansile metastases. ACT 112: Negative or not required by law. Electronically signed by: Kieran Mercado M.D. 05/08/2020 7:01 PM
--- NOTE | 2020-05-08 19:07 | CT Scan Report ---
HEAD CT NONCONTRAST CT DOSE: HISTORY: paranoia eval for mass/mets TECHNIQUE: Multiaxial CT images of the head were performed without the use of intravenous contrast. A utomated exposure control was utilized for this study. A dose lowering technique was utilized adheri ng to the principles of ALARA. Comparison: None. Findings: A few opacified right inferior mastoid air cells. The paranasal sinuses and left mastoid ai r cells are clear. Osteoblastic metastatic disease most pronounced at the skull base. There is no mas s, hematoma, midline shift, acute infarct. White matter hypodensity is nonspecific but suggestive of microvascular ischemic change. The ventricles and sulci demonstrate mild age-related involutional sarah nges. Impression: No acute intracranial abnormality. Osteoblastic metastatic disease identified at the skull base. ACT 112: Negative or not required by law. Electronically signed by: Kieran Mercado M.D. 05/08/2020 7:06 PM
[2020-05-08 19:09] LABS: Appearance Urine Clear (Clear); Bacteria Urine Automated Negative (Negative); Bilirubin Urine Negative (Negative); Blood Urine Negative (Negative); Color Urine Yellow; Epithelial Cell Urine Auto 0-5 /lpf (0-5); Glucose Urine UA Negative (Negative); Ketones Urine Negative (Negative); Leukocyte Esterase Urine Negative (Negative); Nitrite Urine Negative (Negative); Protein Urine Trace (Negative); RBC Urine Automated 0-4 /hpf (0-4); Specific Gravity Urine 1.022 (1.000-1.030); Urobilinogen Urine Negative (Negative); pH Urine 5.5 (4.5-7.5)
[2020-05-08] MEDS: HYDROmorphone INJ 1 MG/ML SYRINGE IV PRN ×4 (20:24→21:45)
[2020-05-08] MEDS ORDERED: ONDANSETRON INJ 2 MG/ML 2 ML VIAL IV PRN (22:54)
[2020-05-08] MEDS ORDERED: POLYETHYLENE (MIRALAX) 17 GM PACK PO PRN (22:54)
[2020-05-08] MEDS ORDERED: fentaNYL 100 MCG/HR TDSY TD PRN (22:54)
[2020-05-08] MEDS ORDERED: ACETAMINOPHEN 325 MG TAB PO PRN (22:54)
[2020-05-08] MEDS ORDERED: PROCHLORPERAZINE MALEATE 10 MG TAB PO PRN (22:54)
--- NOTE | 2020-05-08 23:22 | History and Physical Report ---
DATE OF ADMISSION: 05/08/2020 CHIEF COMPLAINT: Pelvic pain, history of metastatic prostate cancer, paranoia. HISTORY OF PRESENT ILLNESS: A 69-year-old male with past medical history significant for type 2 diabetes, hyperlipidemia, protein-calorie malnutrition, history of prostate cancer status post prostatectomy and palliative radiation treatment, history of systolic congestive heart failure, history of coronary artery disease. The patient is currently on home hospice on fentanyl and on pain medications. As per the son, the patient is not taking pain medication because he is getting paranoid that he and his mother is trying to poison him and he is not also eating any food because he thinks there is the poison in the food. As per son he has been paranoid for some time but last few days it has become worse. As per son he takes the pain medication in the morning but after 6:00 p.m. he gets agitated and does not want to take anything and gets paranoid and he is talking to his brother in [place] to come and get him, he sometimes says he is going to call the cinetechnician. Son says that they are not able to take care of him at home, so brought him to the hospital. Also last 2 days he is not eating much because of his paranoia. No cough, no fever, no chills, somewhat constipated, but no nausea, no vomiting or any other complaints. The patient in the ER is hemodynamically stable, alert and oriented to name. Thinks that he is in a drug store, could not tell the dates, obeys simple commands. The patient keeps on talking about the pain medications, but seems comfortable. Denies any chest pain. Denies shortness of breath. Denies headaches. Denies nausea, denies abdominal pain, says he is ambulating to the bathroom okay, but keeps on going back to his pain medications. ALLERGIES: PENICILLIN. PAST MEDICAL HISTORY: As mentioned above. PAST SURGICAL HISTORY: Bladder surgery, radical removal of prostate. MEDICATIONS: Currently the patient is on Tylenol 650 mg p.o. q. 6 hours p.r.n., amiodarone 200 mg p.o. a.m., aspirin 81 mg p.o. a.m., dexamethasone 2 mg p.o. daily, Colace 100 mg p.o. b.i.d., fentanyl patch 100 mcg q. 72 hours, Lasix 20 mg p.o. every other day, gabapentin 100 mg p.o. t.i.d., Lupron shots every 3 months, metformin 1000 mg in a.m. and 500 mg in p.m., Remeron 50 mg p.o. at bedtime, multivitamin with mineral 1 tablet p.o. a.m., naloxone spray p.r.n., omeprazole 20 mg p.o. a.m., OxyContin 30 mg p.o. b.i.d., oxycodone 5 mg p.o. q. 8 hours p.r.n., MiraLax 17 grams p.o. daily p.r.n., prochlorperazine 10 mg p.o. q. 6 hours p.r.n., Metamucil 1 packet daily, Senokot 8.6 mg p.o. a.m. FAMILY HISTORY: Significant for father had prostate cancer. Brother has diabetes. Mother has diabetes. SOCIAL HISTORY: , lives with and son. No smoking, alcohol rarely. No drug use. REVIEW OF SYMPTOMS: As per HPI. The patient is somewhat difficult to get a complete review of symptoms because of he goes back to his somewhat tangential thinking. PHYSICAL EXAMINATION: GENERAL: The patient is alert and awake, not in acute distress. VITAL SIGNS: Temperature 36.4, pulse 85, respiratory rate 18, blood pressure 132/82, oxygen 100% on room air. HEENT: No pallor, no icterus. Pupils equal, round, reactive to light. Oral mucosa moist. NECK: No neck masses. Supple. CARDIOVASCULAR: S1, S2 heard, regular rate and rhythm, no murmur, no gallop. RESPIRATORY SYSTEM: Normal AP diameter. No accessory muscle use. No wheezing, no crackles. ABDOMEN: Soft, bowel sounds present, nontender. No distention. CENTRAL NERVOUS SYSTEM: Alert and oriented to name only, can able to tell his date of , obeys simple commands. Moves extremities. EXTREMITIES: No edema, no erythema. LABORATORY DATA: WBC 4.7, hemoglobin 10.2, hematocrit 31.6, platelets 155. Sodium 132, potassium 4.4, chloride 100, bicarbonate 26, BUN 22, creatinine 0.6, serum glucose 167, calcium 8.5, AST 133, ALT 130, alkaline phosphatase 1309. Urinalysis negative. Lumbar spine CT, extensive osteoblastic metastatic disease, which has progressed. No definite acute fractures, progressive destructive changes within the left lower thoracic and lumbar spine, no change in the right sided sacral neural foramen narrowing due to the expansile metastasis. CT of the head, no acute intracranial abnormality. Osteoblastic metastatic disease identified in the skull base. Chest x-ray: No acute process. Osteoblastic metastatic disease is again seen. ASSESSMENT AND PLAN: This 69-year-old male with history of metastatic prostate cancer at home hospice, was brought in by son because of difficulty to take care at home because of his paranoia. 1. Prostate cancer, metastatic to bone, history of prostatectomy, completed radiation treatment on Lupron shots, currently on home hospice, but the patient's family is not able to take care of him at home because of his ongoing paranoia and not eating food because he thinks the family poisoning him and not taking his pain medication in the evening because he thinks they are poisoning him. We will consult psychiatry team in the hospital. To continue his home pain medication, IV Dilaudid p.r.n. and social service to help with possible custodial placement with hospice care. 2. History of cardiac arrhythmia in the past. On amiodarone secondary to history of ST elevation myocardial infarction in 1999. Continue amiodarone and aspirin. 4. History of diabetes, on metformin, we will hold, will place on insulin sliding scale. 5. Cachexia, malnutrition because of ongoing cancer and may needs again dietitian consult. 6. Depression. Continue Remeron. 7. History of chronic systolic congestive heart failure with echo in February 2020 with EF was 50-55% which is normal. He is on Lasix 20 mg every other day, which we will continue. 7. Deep venous thrombosis prophylaxis, sequential compression devices for now. DISPOSITION: Closely monitor in the medical floor. Social service to help with discharge planning. CODE STATUS: DNR/DNI as per my discussion with the son. MARCO
[2020-05-08] MEDS: CHECK fentaNYL PATCH PLACEMENT SCH (23:53)
[2020-05-09] MEDS ORDERED: CARBOHYDRATES FOR HYPOGLYCEMIA PO PRN (01:15)
[2020-05-09] MEDS ORDERED: GLUCOSE 40% GEL 15 GM TUBE PO PRN (01:15)
[2020-05-09] MEDS ORDERED: GLUCOSE 10 TABS/TUBE PO PRN (01:15)
[2020-05-09] MEDS ORDERED: DEXTROSE 50% 50 ML SYRINGE IV PRN (01:15)
[2020-05-09] MEDS ORDERED: GLUCAGON FOR INJ 1 MG VIAL SQ PRN (01:15)
[2020-05-09] MEDS ORDERED: NALOXONE HCL 0.4 MG/1 ML VIAL/CARP IV PRN (01:32)
[2020-05-09] MEDS: HYDROmorphone INJ 0.5 MG/0.5 ML SYR IV PRN ×4 (03:19→16:30)
[2020-05-09] MEDS: oxyCODONE HCL IR 5 MG TAB (IMMEDIATE RELEASE) PO PRN ×2 (05:20→18:13)
[2020-05-09] MEDS: DOCUSATE SODIUM 100 MG CAP PO SCH ×2 (08:16→20:21)
[2020-05-09] MEDS: dexAMETHasone 1 MG TAB PO SCH (08:16)
[2020-05-09] MEDS: oxyCODONE HCL 15 MG TABCR (OxyCONTIN) PO SCH ×2 (08:16→20:21)
[2020-05-09] MEDS: GABAPENTIN 100 MG CAP PO SCH ×2 (08:17→13:30)
[2020-05-09] MEDS: CEROVITE ADV FORMULA TAB PO SCH (08:17)
[2020-05-09] MEDS: AMIODARONE 200 MG TAB PO SCH (08:17)
[2020-05-09] MEDS: SENNA 8.6 MG TAB PO SCH ×2 (08:17→20:20)
[2020-05-09] MEDS: ASPIRIN 81 MG ECTAB PO SCH (08:18)
[2020-05-09] MEDS: PANTOprazole 40 MG TAB PO SCH (08:18)
[2020-05-09] MEDS: CHECK fentaNYL PATCH PLACEMENT SCH ×2 (08:18→16:41)
[2020-05-09] MEDS ORDERED: PSYLLIUM 58.6% POWDER PACKET PO PRN (09:00)
[2020-05-09] MEDS ORDERED: SENNA 8.6 MG TAB PO SCH (09:00)
[2020-05-09] MEDS: INSULIN ASPART 100 UNITS/ML 3 ML PEN SC SCH ×2 (09:02→14:04)
--- NOTE | 2020-05-09 10:41 | Hospitalist Progress Note ---
Date of Service May 09, 2020 Assessment & Plan (1) Prostate cancer metastatic to bone: Intermittent Confusion -69yo M with PMH of metastatic prostate cancer to bone (H/o prostatectomy, most oncological treatment outside of [facility]. Completed palliative radiation therapy from December 2019 to Jan 2020. not any any cancer therapy. Has had multiple hospitalizations related to side effects from narcotic pain medication, such as changes in mental status, as discharged from a hospital stay in March 2020 on home hospice -patient's son [phone] and his son reports that patient has been generally doing okay during the day times but at night times at home, but patient's mental status would decline the pain medications and become belligerent and make statements such as accusing his family members that they are trying to poison him and "running around the house." -already on Mirtazapine 15 mg qhs for depression -admitting physician had requested psychiatry assessment for the patient (2) Cancer related pain: -patient is on a scheduled oxycodone 30 mg BID, he also gets prn oxycodone 5 mg q8 hours as needed, also on Fentanyl patches -also on dexamethasone 2 mg daily, gabapentin TID -in the past he had adjustments to pain medications made by [facility] but titration efforts have not formalized optimal dosing - and it may be that there is no correct optimal doses in a patient who has cancer pain who is likely to experience confusion while on narcotic pain medications -continue bowel regimen of senna and colace, prn Miralax to ensure bowel movements (3) Cachexia: -Cachectic in setting of metastatic cancer -bead preparer consult while in the 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 -On amiodarone secondary to history of ST elevation myocardial infarction in 1999 - Continue amiodarone and aspirin. History of chronic systolic congestive heart failure -echo in February 2020 with EF was 50-55% which is normal -He is on Lasix 20 mg every other day, which we will continue. Deep venous thrombosis prophylaxis: sequential compression devices Admission and Anticipated Discharge Date Admission Date: May 08, 2020 Subjective Patient seen and examined at the bedside. He has been conversing well and able to eat the food. He has not been in acute distress but he is on chronic and frequent dosing of narcotic pain medications because of cancer with metastasis. Patient reports last bowel movement was on 05/08/2020. Patient denies other symptoms on review of systems. Otherwise he is not a very good historian as to why he presented to the hospital on 05/08/2020 from home hospice Hospitalist called patient's son [phone] and his son reports that patient has been generally doing okay during the day times but at night times, patient would decline the pain medications and become belligerent and make statements such as accusing his family members that they are trying to poison him and "running around the house." Review of Systems Review of Systems: All systems reviewed & are unremarkable except as noted in Subjective Physical Exam 2 Constitutional: + cachectic and cooperative Eyes: PERRL, conjunctivae normal, anicteric sclerae EOM intact bilaterally ENMT: external ear and nose normal, oropharynx normal Neck: normal visual inspection Respiratory: normal respiratory effort, lungs clear to auscultation Cardiovascular: Rate/Rhythm: regular rate Gastrointestinal (Abdomen): Percussion/Palpation: abdomen soft Musculoskeletal: Head/Neck/Chest: normocephalic and head atraumatic Neurologic: PERRL, EOMI, accommodation nl, no face palsy, no dysarthria moves all extremities Psychiatric: Orientation: alert and cooperative Eye Contact: good eye contact poor historian Results & Data Results & Data ([facility]) Vital Signs (Past 12 Hours) Vital Signs Temp Pulse Resp BP Pulse Ox 05/09/20 07:06 36.5 C 87 20 111/70 99 05/08/20 22:54 36.5 C 102 H 21 132/84 94
[2020-05-09] MEDS ORDERED: oxyCODONE HCL IR 5 MG TAB (IMMEDIATE RELEASE) PO STA (11:21)
--- NOTE | 2020-05-09 11:33 | Psychiatric Consultation ---
Date of Consultation May 09, 2020 Impression / Recommendations Impression Dr. Dodie Patino was directly involved in review and discussion of the patient's case and participated in medical decision making regarding treatment recommendations. RECOMMENDATIONS: 05/09 - Psychiatric consultation requested to evaluate patient for "paranoia", with reports patient has been refusing scheduled home medications due to fear his family is poisoning him. Son has been involved inpatient's treatment and information gathered from him regarding patient's recent behaviors has been beneficial. - Pt, himself, is declining to make any decisions or engage in conversation regarding medication suggestions. Pt verbalizes several times during our encounter that he is "suffering" too much to make decisions for himself and that "my son is the only one who can consent." This provider was able to speak with the patient's son/POLaith Samaniego ([phone]), regarding patient's recent behavior and reviewed treatment recommendations. - It does seem that patient is suffering (metastatic cancer diagnosis with poor prognosis and hospice treatment) and it would likely be beneficial to maximize his antidepressant dosing. Would advise titrating mirtazapine to 30mg qHS. Reviewed information with patient's son that duloxetine was recently recommended to reduce risk of QTc prolongation. Discussed patient's QTc being WNL, but did offer the choice to return to duloxetine but suggested only one agent to reduce polypharmacy. Son did seem to understand mirtazapine was more likely to target sleep and stimulate appetite and did desire to continue the mirtazapine. - Based on son's reports regarding suggested "paranoia" interfering with medication compliance, it may be appropriate to initiate low-dose quetiapine in the early evening to target this behavior preventing patient from fully taking advantage of comfort care measures in place. Could consider 25-50mg dose at/after dinner. Of course, black box warning regarding use of antipsychotic medications in elderly/demented population was reviewed with family, as patient would potentially be at increased risk of related to cardiac/stroke events. Risks and benefits of this decision were reviewed with son. Son reports concern for patient's current quality of life and did feel medications to reduce agitation/"paranoia" was the larger concern to the family at this time. - Will continue to offer support to primary team - and recommendations were reviewed with the hospitalist managing the patient's care. We appreciate the opportunity to participate in the care of this patient. Please reach out to our service with any additional questions or updates. (1) Depression: (2) Paranoia: (3) Prostate cancer metastatic to bone: (4) Cancer related pain: Psych History Identifying Data 69-year-old male admitted medically on 05/08/2020 after presenting to the ED with reports of pain, family admitting to concern about increased paranoia. Pt does have metastatic prostate cancer and had been living at home with hospice care. Psychiatric consultation was requested to evaluate patient for paranoia and offer treatment recommendations. Chief Complaint "I am the one who is suffering." History of Present Illness Florencio Ji is a 69-year-old male admitted medically on 05/08/2020 after presenting to the ED with reports of pain, with family reporting concern for "paranoia" that they believe to be interfering with patient's willingness to take his pain medications appropriately. Pt was diagnosed with prostate cancer that has metastasized to the bone, and was living at home with hospice treatment. It was reported from H&P that family feels the patient becomes more "paranoid" in the evenings, and reports belief that the family is poisoning him when giving his evening pain medications. Case was reviewed with patient's hospitalist, who has been assigned to the patient for multiple hospital admissions at this point and is familiar with patient's case. Pt demonstrated limited cooperation with attempted psychiatric assessment. He reported frustration that "no one has followed-up on my pain medications, my pain is very strong." Pt was reassured that his regimen has been reviewed and pain assessments will be actively followed during his stay. Pt states that the "uncertainty of this is hard." There were multiple attempts made to gather information from the patient himself; however, patient would repeated state "I am the one who is suffering, I cannot be expected to make these decisions." He would then direct this provider to his son, stating "my son is the only one who can consent, I cannot consent in this condition." Attempts were made to at least update patient on recommendations being considered; however, he continued to encourage this provider to speak with his son and was limited in willingness to continue to participate in interview. This provider did as the patient requested, and reached out to the patient's son/POA, Laith. Laith reports concern for the patient's safety and comfort and describes his father as more distrusting and "paranoid" within the past week - "since initiating morphine." It is the son's impression that seeing "the syringe" for his home morphine dose is particularly triggering and causes patient to become more agitated. Laith reports the patient will often become verbally abusive toward the patient's , reporting beliefs that she is "p oisoning him" or "giving him something to make the pain worse." He reports this behavior becomes more pronounced ~18:00 with evening pain medications. The son states that generally the only alleviating factors for this behavior are "finally giving him the pain medications he needs." Son states that patient is "regularly challenging", even during the day, but does feel the behavior is much worse at night. Son was able to provide information about the patient's current medication regimen. It was the son's understanding that the patient had an issue with his QTc interval "at the beginning of the year" and "the insurance" suggested mirtazapine 15mg qHS should be discontinued in favor of duloxetine. Son was not sure if or when this change was initiated. We did discuss that patient's QTc is WNL today. Anticipated benefits of mirtazapine versus duloxetine were discussed and son is ultimately in favor of continuing mirtazapine, with willingness to titrate dose to 30mg qHS. We also discussed option to utilize antipsychotic medication to target increased "paranoia" in the evenings. Black box warning regarding increased risk of mortality related to cardiac event or stroke in elderly/demented population was discussed. Anticipated benefits were also reviewed. Son states "his quality of life right now is zero" and reported that he was ultimately in favor of trial of quetiapine. Son denied any additional concerns at this time and was provided with our psychiatric nurse liaison cell phone number for direct communication with our service should any additional concerns arise. Past Psychiatric History Past Medication Trials: Per son: 1. Mirtazapine 2. Duloxetine Allergies Allergy/AdvReac Type Severity Reaction Status Date / Time Penicillins Allergy Mild Rash Verified 05/08/20 20:40 Home Medications Home Medications Medication Instructions Recorded Confirmed Type amiodarone 200 mg PO QAM 11/07/19 05/08/20 History metformin See Rx Instructions .ROUTE .COMPLEX 11/07/19 05/08/20 History aspirin 81 mg PO QAM 11/08/19 05/08/20 History leuprolide (3 month) 22.5 mg (3 22.5 mg IM .[id number] ea 12/02/19 05/08/20 History month) intramuscular syringe kit mirtazapine 15 mg PO HS 03/04/20 05/08/20 History prochlorperazine maleate 10 mg PO Q6H PRN 03/04/20 05/08/20 History dexamethasone 2 mg PO DAILY 03/15/20 05/08/20 History furosemide 20 mg PO Q2D 03/15/20 05/08/20 History ytjkekjgsvvz-vblizhbc-fefsfq 1 tab PO QAM 03/15/20 05/08/20 History naloxone 4 mg/actuation nasal spray 1 spray INTRANASAL Q2M PRN #2 ea 03/24/20 05/08/20 Rx gabapentin 100 mg PO TID 04/05/20 05/08/20 History acetaminophen [Tylenol] 650 mg PO Q6H PRN 05/08/20 05/08/20 History docusate sodium [Colace] 100 mg PO BID 05/08/20 05/08/20 History fentanyl [Duragesic] 100 mcg TRANSDERMAL Q3D PRN 05/08/20 05/08/20 History omeprazole 20 mg PO QAM 05/08/20 05/08/20 History oxycodone [OxyContin] 30 mg PO BID 05/08/20 05/08/20 History oxycodone [Roxicodone] 5 mg PO Q8H PRN 05/08/20 05/08/20 History polyethylene glycol 3350 [Miralax] 17 g PO DAILY PRN 05/08/20 05/08/20 History psyllium [Metamucil] 1 packet PO UD 05/08/20 05/08/20 History sennosides [Senna Lax] 8.6 mg PO QAM 05/08/20 05/08/20 History Personal History Living Arrangements: Home (lives with , at son's house - with son's and children in [place]) Employment Status: Retired Marital Status: Patient History Medical History Abdominal pain, lower Acute UTI Back pain Bone metastases Cachexia Depression Diabetes mellitus, type 2 History of kidney stones Hyperlipidemia Hypertension Myocardial Infarction 06/2019--was taken to [facility] in [place] (had a stroke as well), did not have a heart cath/heart surgery--follows with Dr. Iyer at [facility], no blood thinners Prostate cancer 1999--bone metastases---sx/radiation/chemo Surgical History History of colonoscopy History of prostate biopsy malignant History of tooth extraction History of wisdom tooth extraction Hx of prostatectomy S/P cystourethroscopy with dilation of urethral stricture Family History Mother , age 99 old age Diabetes Father , age 78 prostate ca Prostate cancer Brother , liver cancer No problems noted. Brother No problems noted. Brother No problems noted. Brother No problems noted. Sister No problems noted. Sister No problems noted. Sister No problems noted. Son No problems noted. Daughter No problems noted. 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 Other Information That Helps Us Care for You: No Feels Safe at Home: Yes Safety Concerns: Feels Safe At This Time Childhood Exposure to Second-Hand Smoke: No Diet Comment: low carbs for diabetes management caffeine: Yes (2 cups per day) during the past year weight has: decreased > 10 lbs Dental Care, Regularly: Yes Physical Activity Frequency: Does not Exercise Seatbelt Use: always Sunscreen Use: Yes Assistive Devices: Walker Physical Exam Psychiatric: Orientation: alert and + guarded (somewhat uncooperative, stating he is in no condition to make decisions) Apperance: appropriately dressed and + disheveled Cachectic appearing male, seated in bed side chair displaying some moderate distress (emotions and physical discomfort). Pt is appropriately dressed in a hospital gown. He appears somewhat unkempt. Motor Behavior: no abnormal motor movements (observed while laying in bed) Speech: normal rate/rhythm/volume of speech Affect: + depressed affect and + irritable affect Mood: + depressed mood ("I am suffering") Thought Process: + concrete thought process Suicidal Thoughts: denies suicidal thoughts tho ugh does verbalize some statements that are suggestive of patient wanting to give up, no reports of active SI Hallucinations: no auditory hallucinations and no visual hallucinations Cognition: attention grossly intact and language grossly intact Insight: + limited insight Judgement: + limited judgement Vital Signs (Past 24 Hours): Last Vital Signs Temp 36.5 C 05/09/20 07:06 Pulse 87 05/09/20 07:06 Resp 20 05/09/20 07:06 BP 111/70 05/09/20 07:06 Pulse Ox 99 05/09/20 07:06 Review of Systems Constitutional: denied Cardiovascular: denied Respiratory: denied Gastrointestinal: denied Neurological: denied Musculoskeletal: pt reports significant generalized pain, stating this is his only issue Psychiatric: denies symptoms other than stated above Total of at least 10 systems reviewed, pertinent positives as above and in HPI. Results & Data (PSY) Medications Administered Amiodarone HCl (Amiodarone 200 Mg Tab) 200 mg PO QAM [facility] Stop: 06/08/20 08:59 Last Admin: 05/09/20 08:17 Dose: 200 mg Documented by: [id number] Aspirin (Aspirin 81 Mg Ectab) 81 mg PO QAM [facility] Stop: 06/08/20 08:59 Last Admin: 05/09/20 08:18 Dose: 81 mg Documented by: [id number] Dexamethasone (Dexamethasone 1 Mg Tab) 2 mg PO DAILY [facility] Stop: 06/08/20 08:59 Last Admin: 05/09/20 08:16 Dose: 2 mg Documented by: [id number] Docusate Sodium (Docusate Sodium 100 Mg Cap) 100 mg PO BID [facility] Stop: 06/08/20 08:59 Last Admin: 05/09/20 08:16 Dose: 100 mg Documented by: [id number] Gabapentin (Gabapentin 100 Mg Cap) 100 mg PO TID [facility] Stop: 06/08/20 08:59 Last Admin: 05/09/20 08:17 Dose: 100 mg Documented by: [id number] Hydromorphone HCl (Hydromorphone Inj 0.5 Mg/0.5 Ml Syr) 0.5 mg IV Q4H PRN PRN Reason: Pain Stop: 05/22/20 22:53 Last Admin: 05/09/20 08:15 Dose: 0.5 mg Documented by: [id number] Admin: 05/09/20 03:19 Dose: 0.5 mg Documented by: [id number] Insulin Aspart (Insulin Aspart 100 Units/Ml 3 Ml Pen) 0 units SC ACHS [facility] Stop: 06/08/20 07:29 Last Admin: 05/09/20 09:02 Dose: 2 units Documented by: [id number] Cosigned by: [id number] Miscellaneous (Check Fentanyl Patch Placement) 1 ea N/A QS [facility] Stop: 06/08/20 00:00 Last Admin: 05/09/20 08:18 Dose: 1 ea Documented by: [id number] Admin: 05/08/20 23:53 Dose: 1 ea Documented by: [id number] Multivitamins/Minerals (Cerovite Adv Formula Tab) 1 tab PO QAM [facility] Stop: 06/08/20 08:59 Last Admin: 05/09/20 08:17 Dose: 1 tab Documented by: [id number] Oxycodone HCl (Oxycodone Hcl Ir 5 Mg Tab (Immediate Release)) 5 mg PO Q8H PRN PRN Reason: Pain Stop: 05/22/20 23:03 Last Admin: 05/09/20 05:20 Dose: 5 mg Documented by: [id number] Oxycodone HCl (Oxycodone Hcl 15 Mg Tabcr (Oxycontin)) 30 mg PO BID [facility] Stop: 05/23/20 08:59 Last Admin: 05/09/20 08:16 Dose: 30 mg Documented by: [id number] Pantoprazole Sodium (Pantoprazole 40 Mg Tab) 40 mg PO QAM [facility] Stop: 06/08/20 08:59 Last Admin: 05/09/20 08:18 Dose: 40 mg Documented by: [id number] Sennosides (Senna 8.6 Mg Tab) 8.6 mg PO BID [facility] Stop: 06/08/20 08:59 Last Admin: 05/09/20 08:17 Dose: 8.6 mg Documented by: [id number] Coding Level of Care Code 92463 [facility] Intl Hosp Care Lvl 2 Diagnoses Depression F32.9 Paranoia F22 Prostate cancer metastatic to bone C61; C79.51 Cancer related pain G89.3
--- NOTE | 2020-05-09 16:37 | Communication Note ---
Date of Service: May 09, 2020 The diagnosis of paranoia is based on verbal reporting from patient's family - the patient does not exhibit acute paranoia in the hospital to date. agree with psychiatry consult however that mood stabilizing medications may help patient's home behaviors at night when he is outpatient. his son Laith agrees for changes to increase Mirtazapine from 15 mg qHS to 30 mg qHS. In addition he allows for adding Seroquel 25 mg qHS after dinner times. patient's qtc is not prolonged and black box warnings in regards to Seroquel also was discussed with patient's family
[2020-05-09] MEDS: metFORMIN HCL 500 MG TAB PO SCH (16:41)
[2020-05-09] MEDS: ACETAMINOPHEN 325 MG TAB PO PRN (18:14)
[2020-05-09] MEDS: QUEtiapine FUMARATE 25 MG TABLET PO SCH (20:21)
[2020-05-09] MEDS: MIRTAZAPINE TAB 15 MG TAB PO SCH (20:21)
--- NOTE | 2020-05-09 20:26 | Electrocardiogram Report ---
Test Reason : Blood Pressure : / mmHG Vent. Rate : 098 BPM Atrial Rate : 098 BPM P-R Int : 170 ms QRS Dur : 088 ms QT Int : 324 ms P-R-T Axes : 057 004 082 degrees QTc Int : 413 ms Normal sinus rhythm Possible Left atrial enlargement Inferior infarct (cited on or before 08-FEB-2020) Abnormal ECG When compared with ECG of 05-APR-2020 17:33, T wave inversion no longer evident in Lateral leads QT has shortened Confirmed by Malik Aquino ([id number]) on 05/09/2020 8:25:44 PM Referred By: REFERRED SELF Confirmed By:Malik Aquino
[2020-05-09] MEDS ORDERED: MIRTAZAPINE TAB 15 MG TAB PO SCH (21:00)
[2020-05-10] MEDS: HYDROmorphone INJ 0.5 MG/0.5 ML SYR IV PRN ×2 (00:09→05:03)
[2020-05-10] MEDS: CHECK fentaNYL PATCH PLACEMENT SCH ×4 (00:10→23:06)
[2020-05-10] MEDS: oxyCODONE HCL IR 5 MG TAB (IMMEDIATE RELEASE) PO PRN ×3 (03:01→16:03)
[2020-05-10] MEDS: ACETAMINOPHEN 325 MG TAB PO PRN (07:49)
[2020-05-10] MEDS: oxyCODONE HCL 15 MG TABCR (OxyCONTIN) PO SCH ×2 (07:53→20:16)
--- NOTE | 2020-05-10 08:23 | Hospitalist Progress Note ---
Date of Service May 10, 2020 Assessment & Plan (1) Prostate cancer metastatic to bone: Intermittent Confusion vs possible paranoia -69yo M with PMH of metastatic prostate cancer to bone (H/o prostatectomy, most oncological treatment outside of [facility]. Completed palliative radiation therapy from December 2019 to Jan 2020. not any any cancer therapy. Has had multiple hospitalizations related to side effects from narcotic pain medication, such as changes in mental status, as discharged from a hospital stay in March 2020 on home hospice -patient's son [phone] and his son reports that patient has been generally doing okay during the day times but at night times at home, but patient's mental status would decline the pain medications and become belligerent and make statements such as accusing his family members that they are trying to poison him and "running around the house." -already on Mirtazapine 15 mg qhs for depression -admitting physician had requested psychiatry assessment for the patient. The diagnosis of paranoia is based on verbal reporting from patient's family - the patient does not exhibit acute paranoia in the hospital to date. 05/09/2020: hospitalist agree with psychiatry consult however that mood stabilizing medications may help patient's home behaviors at night when he is outpatient. his son Laith agrees for changes to increase Mirtazapine from 15 mg qHS to 30 mg qHS. In addition he allows for adding Seroquel 25 mg qHS after dinner times. patient's qtc is not prolonged and black box warnings in regards to Seroquel also was discussed with patient's family -05/10/2020: Nurse given patient pain medication recently and informed medical doctor that patient appears to be in pain and therefor difficult to turn in bed or have him walk. Hospitalist went to assess patient and patient reports that he is not requesting the prn pain medications on his own and that multiple people are coming in to his room to give him pills. Patient does admit to chronic pain but Patient in fact is reporting that he really does not want the prn pain medications because he has not been asking for them directly. Hospitalist discussed with patient's nurse and she reports that pain assessment involves nonverbal cues and when she discussed with patient that she will give him the prn pain medications that the patient agreed so she was doing her tasks appropriately in the pain assessments. Hospitalist discussed that prn pain oxycodone medications to be modified in the order sets so that they are to be given as needed for pain only if patient requests verbally and directly. (2) Cancer related pain: -patient is on a scheduled oxycodone 30 mg BID, he also gets prn oxycodone 5 mg q8 hours as needed, also on Fentanyl patches -also on dexamethasone 2 mg daily, gabapentin TID -in the past he had adjustments to pain medications made by [facility] but titration efforts have not formalized optimal dosing - and it may be that there is no correct optimal doses in a patient who has cancer pain who is likely to experience confusion while on narcotic pain medications -continue bowel regimen of senna and colace, prn Miralax to ensure bowel movements (3) Cachexia: -Cachectic in setting of metastatic cancer -executive steward consult while in the 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 -On amiodarone secondary to history of ST elevation myocardial infarction in 1999 - Continue amiodarone and aspirin. History of chronic systolic congestive heart failure -echo in February 2020 with EF was 50-55% which is normal -He is on Lasix 20 mg every other day, which we will continue. Deep venous thrombosis prophylaxis: sequential compression devices Admission and Anticipated Discharge Date Admission Date: May 08, 2020 Subjective Nurse given patient pain medication recently and informed medical doctor that patient appears to be in pain and therefor difficult to turn in bed or have him walk. Hospitalist went to assess patient and patient reports that he is not requesting the prn pain medications on his own and that multiple people are coming in to his room to give him pills. Patient does admit to chronic pain but Patient is reporting that he really does not want the prn pain medications because he has not been asking for them directly Hospitalist discussed with patient's nurse and she reports that pain assessment involves nonverbal cues and when she discussed with patient that she will give him the prn pain medications that the patient agreed so she was doing her tasks appropriately in the pain assessments. Hospitalist discussed that prn pain oxycodone medications to be modified in the order sets so that they are to be given as needed for pain only if patient requests verbally and directly. Review of Systems Review of Systems: All systems reviewed & are unremarkable except as noted in Subjective Physical Exam Constitutional: + cachectic and cooperative Eyes: PERRL, conjunctivae normal, anicteric sclerae EOM intact bilaterally ENMT: external ear and nose normal, oropharynx normal Neck: normal visual inspection Respiratory: normal respiratory effort, lungs clear to auscultation Cardiovascular: Rate/Rhythm: regular rate Gastrointestinal (Abdomen): Percussion/Palpation: abdomen soft Musculoskeletal: Head/Neck/Chest: normocephalic and head atraumatic Neurologic: PERRL, EOMI, accommodation nl, no face palsy, no dysarthria moves all extremities Psychiatric: Orientation: alert and cooperative Eye Contact: good eye contact Results & Data Results & Data ([facility]) Vital Signs (Past 12 Hours) Vital Signs Temp Pulse Pulse Resp BP Pulse Ox 05/10/20 07:07 36.8 C 105 H 16 128/80 92 05/09/20 23:02 37.5 C 90 18 121/75 98
[2020-05-10] MEDS: SENNA 8.6 MG TAB PO SCH ×2 (09:21→20:18)
[2020-05-10] MEDS: FUROSEMIDE 20 MG TAB PO SCH (09:22)
[2020-05-10] MEDS: CEROVITE ADV FORMULA TAB PO SCH (09:22)
[2020-05-10] MEDS: DOCUSATE SODIUM 100 MG CAP PO SCH ×2 (09:22→20:17)
[2020-05-10] MEDS: ASPIRIN 81 MG ECTAB PO SCH (09:22)
[2020-05-10] MEDS: dexAMETHasone 1 MG TAB PO SCH (09:23)
[2020-05-10] MEDS: PANTOprazole 40 MG TAB PO SCH (09:23)
[2020-05-10] MEDS: AMIODARONE 200 MG TAB PO SCH (09:23)
[2020-05-10] MEDS ORDERED: MoRPHine SULFATE 2 MG/ML CARP IV STA (12:47)
--- NOTE | 2020-05-10 12:53 | Communication Note ---
Date of Service: May 10, 2020 patient is verbal but having hard to time with making decisions. Laith his son is updated by telephone. main issues include patient experiencing cancer related pain and at the same time he has been trying to avoid oral pain medication. he is alert enough to ask some questions about his health. we went over the stage IV cancer and the last time he was discharged on home hospice. however his family having hard time to care for him because of he goes through difficult periods or pain or confusion at home especially near the night time and Laith reports by phone that what is happening around the noon time in the hospital today to similar to home episodes. after much discussion with patient, patient agrees to take a stat dose of IV morphine at this time hospitalist service requesting both assistance from palliative care and pain management consult
[2020-05-10] MEDS ORDERED: MoRPHine SULFATE 2 MG/ML CARP ONE (12:56)
[2020-05-10] MEDS: metFORMIN HCL 500 MG TAB PO SCH (15:31)
--- NOTE | 2020-05-10 15:58 | Palliative Care Consultation ---
Date of Consultation May 10, 2020 Assessment & Plan (1) Palliative care encounter: (2) Intractable pain: (3) Cachexia: (4) Diabetes mellitus, type 2: (5) Prostate cancer metastatic to bone: (6) Altered mental status: History of Present Illness Reason for Consultation: Goals of Care Requesting Physician: Dr. Nunez Attending Physician: Walter Nunez MD History of Present Illness This is a 69 year old male who presented to the [facility] ED from home hospice ([facility]) after he was experiencing paranoia and hallucinations regarding medications and food. He thinks his food and medications are poisoned. The family has expressed that it has been more difficult caring for him at home. He is close to a 30 day readmission and is known to the Palliative Care Consultation service. This patient has PMH of metastatic prostate cancer with mets to the bone. He has underwent a prostatectomy and palliative XRT. A dditional PMH includes: CHF, DM2, CAD, severe protein-caloric malnutrition, and others. The patient has recently been seen by pain management and medication changes have occurred during the most recent admission. Palliative Care was consulted for symptom management. I was able to see this patient in room 386. He was awake, alert and oriented to self only. He was not agitated but requiring constant redirection. The patient expresses that he is in pain, but unable to identify where or the severity. He was unable to describe it, or answer questions reliably. He is notably more confused than previous admission. Additionally, he has lost significant weight since previous admission. He is on Senna and Colace for stool regimen. Currently, he is taking the following pain management and mood stablizing medications: Remeron 30 mg Q HS Seroquel 25 mg Q HS Dilaudid 0.5 mg IV Q4 (4 doses over past 24 hours) Oxycodone 30 mg PO BID Oxycodone 5 mg Q8 PRN (3 doses over past 24 hours) Fentanyl Patch 100 mcg TD Q3D I would continue Remeron and Seroquel for behavioral disturbances. I would like to discontinue the IV pain medications as we have a goal for this patient to transition to [facility] for Hospice and Respite care and they can not administer IV medications. At this time, I am not sure that the Fentanyl patch is effective as the patient is significantly more cachectic than previously. Will keep for now and reassess tomorrow, but depending on PRN Oxy use, may discontinue this and increase schedule Oxycodone dose. Would increase frequency of Oxycodone to Q3 hours PRN and assess for use. Pending how patient progresses, may need to have conversation about sedation with Ativan IV and Morphine IV if behaviors worsen. Would also consider adding SL Ativan and or Haldol for behavioral modification, discussed with hospitalist and for now will add SL Ativan. I do have concerns that the patient may require a 1:1 which may delay acceptance into [facility]. I did discuss with case management and for now due to COVID restriction, will continue with admission and then hopefully transition to [facility] for respite care. I attempted to call the patients son, Laith, but was only able to reach a voicemail. Patient is a DNR/DNI. Palliative care will follow. Allergies Allergy/AdvReac Type Severity Reaction Status Date / Time Penicillins Allergy Mild Rash Verified 05/08/20 20:40 Home Medications Medication Instructions Recorded Confirmed Type amiodarone 200 mg PO QAM 11/07/19 05/08/20 History metformin See Rx Instructions .ROUTE .COMPLEX 11/07/19 05/08/20 History aspirin 81 mg PO QAM 11/08/19 05/08/20 History leuprolide (3 month) 22.5 mg (3 22.5 mg IM .[id number] ea 12/02/19 05/08/20 History month) intramuscular syringe kit mirtazapine 15 mg PO HS 03/04/20 05/08/20 History prochlorperazine maleate 10 mg PO Q6H PRN 03/04/20 05/08/20 History dexamethasone 2 mg PO DAILY 03/15/20 05/08/20 History furosemide 20 mg PO Q2D 03/15/20 05/08/20 History doemsamdoara-aulaerft-xmchbv 1 tab PO QAM 03/15/20 05/08/20 History naloxone 4 mg/actuation nasal spray 1 spray INTRANASAL Q2M PRN #2 ea 03/24/20 05/08/20 Rx gabapentin 100 mg PO TID 04/05/20 05/08/20 History acetaminophen [Tylenol] 650 mg PO Q6H PRN 05/08/20 05/08/20 History docusate sodium [Colace] 100 mg PO BID 05/08/20 05/08/20 History fentanyl [Duragesic] 100 mcg TRANSDERMAL Q3D PRN 05/08/20 05/08/20 History omeprazole 20 mg PO QAM 05/08/20 05/08/20 History oxycodone [OxyContin] 30 mg PO BID 05/08/20 05/08/20 History oxycodone [Roxicodone] 5 mg PO Q8H PRN 05/08/20 05/08/20 History polyethylene glycol 3350 [Miralax] 17 g PO DAILY PRN 05/08/20 05/08/20 History psyllium [Metamucil] 1 packet PO UD 05/08/20 05/08/20 History sennosides [Senna Lax] 8.6 mg PO QAM 05/08/20 05/08/20 History Patient History Medical History (Updated 05/10/20 @ 15:58 by ARIE Jurado) Abdominal pain, lower Acute UTI Altered mental status Back pain Bone metastases Cachexia Depression Diabetes mellitus, type 2 History of kidney stones Hyperlipidemia Hypertension Myocardial Infarction 06/2019--was taken to [facility] in [place] (had a stroke as well), did not have a heart cath/heart surgery--follows with Dr. Iyer at [facility], no blood thinners Palliative care encounter Prostate cancer 1999--bone metastases---sx/radiation/chemo Surgical History History of colonoscopy History of prostate biopsy malignant History of tooth extraction History of wisdom tooth extraction Hx of prostatectomy S/P cystourethroscopy with dilation of urethral stricture Family History Mother , age 99 old age Diabetes Father , age 78 prostate ca Prostate cancer Brother , liver cancer No problems noted. Brother No problems noted. Brother No problems noted. Brother No problems noted. Sister No problems noted. Sister No problems noted. Sister No problems noted. Son No problems noted. Daughter No problems noted. 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 Other Information That Helps Us Care for You: No Feels Safe at Home: Yes Safety Concerns: Feels Safe At This Time Childhood Exposure to Second-Hand Smoke: No Diet Comment: low carbs for diabetes management caffeine: Yes (2 cups per day) during the past year weight has: decreased > 10 lbs Dental Care, Regularly: Yes Physical Activity Frequency: Does not Exercise Seatbelt Use: always Sunscreen Use: Yes Assistive Devices: Walker Review of Systems Review of Systems: Unobtainable due to cognitive status Physical Exam Constitutional: + acute distress, + ill appearing, + thin, + cachectic, + fr ail appearing and + malnourished Neck: trachea midline, no thyromegaly Respiratory: normal respiratory effort; no respiratory distress Auscultation: + diminished lung sounds Gastrointestinal (Abdomen): normal bowel sounds, soft, nontender, no hepatosplenomegaly Percussion/Palpation: + abdomen tender Skin: no rashes, warm and dry + skin atrophy and + ecchymosis Psychiatric: Orientation: alert and oriented to person Insight: + impaired insight Judgement: + impaired judgement Results & Data ([facility]) Vital Signs (Past 12 Hours) Vital Signs Temp Pulse Resp BP Pulse Ox 05/10/20 15:19 36.6 C 93 H 16 101/60 93 05/10/20 07:07 36.8 C 105 H 16 128/80 92 PG Care Time/CCT Total # of Minutes Spent Total Time Spent with Patient: Total time spent is greater than 50% in coordination of care (as documented) at patient's floor/unit and/or counseling patient: 70 Coding Level of Care Code 32486 Inpt Consult Level 3 Diagnoses Palliative care encounter Z51.5 Intractable pain R52 Cachexia R64 Diabetes mellitus, type 2 E11.9 Prostate cancer metastatic to bone C61; C79.51 Altered mental status R41.82 Time Spent (min) 70 Time Spent Midlevel Total time spent 70 minutes with > 50% of that time spent assessing the patient, providing symptom management for the patient, reaching out to family and collaborating with the IDT
[2020-05-10] MEDS: LORazepam 0.5 MG TAB SL PRN (18:33)
[2020-05-10] MEDS: QUEtiapine FUMARATE 25 MG TABLET PO SCH (20:18)
[2020-05-10] MEDS: MIRTAZAPINE TAB 15 MG TAB PO SCH (20:18)
[2020-05-11] MEDS: oxyCODONE HCL IR 5 MG TAB (IMMEDIATE RELEASE) PO PRN ×4 (01:07→19:16)
[2020-05-11] MEDS: LORazepam 0.5 MG TAB SL PRN ×2 (04:21→19:16)
[2020-05-11] MEDS: oxyCODONE HCL 15 MG TABCR (OxyCONTIN) PO SCH ×2 (08:26→21:03)
[2020-05-11] MEDS: dexAMETHasone 1 MG TAB PO SCH (08:26)
[2020-05-11] MEDS: ASPIRIN 81 MG ECTAB PO SCH (08:27)
[2020-05-11] MEDS: DOCUSATE SODIUM 100 MG CAP PO SCH ×2 (08:27→21:03)
[2020-05-11] MEDS: AMIODARONE 200 MG TAB PO SCH (08:27)
[2020-05-11] MEDS: SENNA 8.6 MG TAB PO SCH ×2 (08:27→21:03)
[2020-05-11] MEDS: CEROVITE ADV FORMULA TAB PO SCH ×2 (08:27→08:41)
[2020-05-11] MEDS: PANTOprazole 40 MG TAB PO SCH (08:27)
[2020-05-11] MEDS: CHECK fentaNYL PATCH PLACEMENT SCH (08:34)
--- NOTE | 2020-05-11 09:45 | Hospitalist Progress Note ---
Date of Service May 11, 2020 Assessment & Plan (1) Prostate cancer metastatic to bone: Intermittent Confusion vs possible paranoia -69yo M with PMH of metastatic prostate cancer to bone (H/o prostatectomy, most oncological treatment outside of [facility]. Completed palliative radiation therapy from December 2019 to Jan 2020. not any any cancer therapy. Has had multiple hospitalizations related to side effects from narcotic pain medication, such as changes in mental status, as discharged from a hospital stay in March 2020 on home hospice -patient's son [phone] and his son reports that patient has been generally doing okay during the day times but at night times at home, but patient's mental status would decline the pain medications and become belligerent and make statements such as accusing his family members that they are trying to poison him and "running around the house." -already on Mirtazapine 15 mg qhs for depression -admitting physician had requested psychiatry assessment for the patient. The diagnosis of paranoia is based on verbal reporting from patient's family - the patient does not exhibit acute paranoia in the hospital to date. 05/09/2020: hospitalist agree with psychiatry consult however that mood stabilizing medications may help patient's home behaviors at night when he is outpatient. his son Laith agrees for changes to increase Mirtazapine from 15 mg qHS to 30 mg qHS. In addition he allows for adding Seroquel 25 mg qHS after dinner times. patient's qtc is not prolonged and black box warnings in regards to Seroquel also was discussed with patient's family -05/10/2020: patient evaluated by palliative care and based on their assessment and recommendations continue Remeron and Seroquel for behavioral disturbances. discontinued the IV pain medications as goal for this patient to transition to [facility] for Hospice and Respite care and they can not administer IV medications. stopped gabapentin continue the oxycontin 30 mg BID increased the prn oxycodone frequency to 5 mg every 4 hours as needed for pain started prn sublingual ativan for agitation unclear as to the benefits of continuing Fentanyl patch but will keep this on until further pain assessements -05/11/2020: Patient is in less pain and distress from pain compared to yesterday's exam. However, he is confused and fixated on his oral care compared to other issues and review of systems that hospitalist had wished to try to discuss. continue follow with palliative care recommendations and case management (2) Cancer related pain: -patient is on a scheduled oxycodone 30 mg BID, he also gets prn oxycodone 5 mg q8 hours as needed, also on Fentanyl patches -also on dexamethasone 2 mg daily -in the past he had adjustments to pain medications made by [facility] but titration efforts have not formalized optimal dosing - and it may be that there is no correct optimal doses in a patient who has cancer pain who is likely to experience confusion while on narcotic pain medications -continue bowel regimen of senna and colace, prn Miralax to ensure bowel movements (3) Cachexia: -Cachectic in setting of metastatic cancer -preload supervisor consult while in the 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 -On amiodarone secondary to history of ST elevation myocardial infarction in 1999 - Continue amiodarone and aspirin. History of chronic systolic congestive heart failure -echo in February 2020 with EF was 50-55% which is normal -He is on Lasix 20 mg every other day, which we will continue. Deep venous thrombosis prophylaxis: sequential compression devices DNR/DNI as per previous discussion with patient's son Laith who helps make the medical decisions Admission and Anticipated Discharge Date Admission Date: May 08, 2020 Subjective Patient is in less pain and distress from pain compared to yesterday's exam. However, he is confused and fixated on his oral care compared to other issues and review of systems that hospitalist had wished to try to discuss Review of Systems Review of Systems: Unobtainable due to cognitive status Physical Exam Constitutional: + cachectic and cooperative Eyes: PERRL, conjunctivae normal, anicteric sclerae EOM intact bilaterally ENMT: external ear and nose normal, oropharynx normal Neck: normal visual inspection Respiratory: normal respiratory effort, lungs clear to auscultation Cardiovascular: Rate/Rhythm: regular rate Gastrointestinal (Abdomen): Percussion/Palpation: abdomen soft Musculoskeletal: Head/Neck/Chest: normocephalic and head atraumatic Neurologic: PERRL, EOMI, accommodation nl, no face palsy, no dysarthria moves all extremities Psychiatric: Orientation: alert and cooperative Eye Contact: good eye contact Results & Data Results & Data ([facility]) Vital Signs (Past 12 Hours) Vital Signs Temp Pulse Resp BP BP Pulse Ox 05/11/20 07:42 37.1 C 96 H 18 151/87 H 99 05/10/20 23:10 37.5 C 101 H 20 129/76 99
--- NOTE | 2020-05-11 15:57 | Palliative Care Progress Note ---
Date of Service May 11, 2020 Assessment & Plan (1) Palliative care encounter: I spoke with Florencio and also with his son Laith on the phone. Laith is concerned about his father having pain. He confirms that comfort is primary goal. Code status is DNR/DNI. Plan would be hospice respite care at [facility] when pain is controlled. (2) Lower back pain: With metastatic prostate cancer. Given his cachexia, I doubt that he is absorbing much, if any, of fentanyl which is lipid soluble. I spoke with Dr. Nunez. We will d/c fentanyl patch and continue oxycontin 30mg BID. Will also continue oxycodone prn with frequency of every two hours prn as we monitor with removal of patch. We will monitor over the next 24 hours to see what his pain medication needs as any fentanyl clears. If he has difficulty taking po meds, we can change oxycontin to routine dosing of oxycodone. He may also benefit from increased decadron dosing with bone related pain. I did update Laith on the plan. (3) Pelvic pain: as above. Monitor for constipation (4) Cachexia: Cancer related. He expresses frustration about lack of appetite. I reassured him that he can eat whatever he feels comfortable with. (5) Altered mental status: Monitor with removal of fentanyl patch. While his confusion may be medication related, it is likely multifactorial. Son has confirmed that comfort would come before clarity in trade off. (6) Prostate cancer metastatic to bone: Admission and Anticipated Discharge Date Admission Date: May 08, 2020 Subjective Sitting up in chair. Grimaces with movement and c/o pain in his back and hips. He has had 3 doses of prn oxycodone for a total of 15mg in last 24 hours. He is pleasant and cooperative but confused. He denies abdominal pain or nausea. Appetite is poor. Review of Systems Review of Systems: [place] Symptom Assessment Scale Pain 2/3 Dyspnea 0/3 Nausea 0/3 Anxiety 0/3 Depression 0/3 Drowsiness 0/3 Anorexia 3/3 Palliative Performance Score 40% Cardiovascular: no chest pain, no palpitations and no edema Musculoskeletal: + back pain Neurologic: + confusion Physical Exam Constitutional: + cachectic Respiratory: normal respiratory effort; no labored breathing Cardiovascular: Extremities: no edema Gastrointestinal (Abdomen): Percussion/Palpation: abdomen nontender Musculoskeletal: Spine: + lumbar spinal tenderness Skin: + turgor decreased Neurologic: + confused Psychiatric: Orientation: alert, oriented to person and oriented to place Results & Data ([facility]) Vital Signs (Past 12 Hours) Vital Signs Temp Pulse Resp BP Pulse Ox 05/11/20 07:42 98.8 F 96 H 18 151/87 H 99 PG Care Time/CCT Total # of Minutes Spent Total Time Spent with Patient: Total time spent is greater than 50% in coordination of care (as documented) at patient's floor/unit and/or counseling patient: 40 minutes total With more than 50% of time spent on coordination of care, discussion with attending physician and family, symptom management and goals of care. Coding Level of Care Code 52298 Subseq Hosp Care Lvl 3 Diagnoses Palliative care encounter Z51.5 Lower back pain M54.5 Back pain laterality: left Chronicity: acute Sciatica presence: without sciatica Pelvic pain R10.2 Cachexia R64 Altered mental status R41.82 Prostate cancer metastatic to bone C61; C79.51 Time Spent (min) 40 (1) Lower back pain Back pain laterality: left Chronicity: acute Sciatica presence: without sciatica Qualified Code(s): M54.5 - Low back pain
[2020-05-11] MEDS: metFORMIN HCL 500 MG TAB PO SCH (16:10)
[2020-05-11] MEDS ORDERED: dexAMETHasone 4 MG TAB PO ONE (17:30)
[2020-05-11] MEDS: MIRTAZAPINE TAB 15 MG TAB PO SCH (21:03)
[2020-05-11] MEDS: QUEtiapine FUMARATE 25 MG TABLET PO SCH (21:04)
[2020-05-12] MEDS: oxyCODONE HCL IR 5 MG TAB (IMMEDIATE RELEASE) PO PRN ×3 (01:45→17:34)
[2020-05-12] MEDS: LORazepam 0.5 MG TAB SL PRN (05:17)
[2020-05-12 08:10] LABS: Eosinophils # (auto) 0.01 K/uL (0-0.5); Eosinophils % (auto) 0.2 %; Hematocrit (blood only) 32.1 % (42-52); Hemoglobin 10.1 g/dL (14.0-18.0); Immature Granulocytes # (auto) 0.03 K/uL (0.00-0.02); Immature Granulocytes % (auto) 0.5 %; Lymphocytes % (auto) 5.2 %; Mean Corpuscular Hemoglobin 29.4 pg (25-34); Mean Corpuscular Hgb Conc 31.5 g/dL (32-36); Mean Corpuscular Volume 93.3 fL (80-100); Mean Platelet Volume 9.8 fL (7.4-10.4); Monocytes % (auto) 12.2 %; Neutrophils # (auto) 4.71 K/uL (1.4-6.5); Neutrophils % (auto) 81.9 %; Nucleated RBC # (auto) 0.04 K/uL (0-0); Nucleated RBC % (auto) 0.7 %; Platelet Count 139 K/uL (130-400); RDW Coefficient of Variation 18.6 % (11.5-14.5); RDW Standard Deviation 63.6 fL (36.4-46.3); Red Blood Count 3.44 M/uL (4.7-6.1); White Blood Count 5.75 K/uL (4.8-10.8)
[2020-05-12 08:33] LABS: BUN Creatinine Ratio 49.6 (10-20); Calcium 9.2 mg/dl (8.5-10.1); Creatinine Clr Calc Pharmacy 85.2 ml/min; Est GFR (African American) 115.7; Est GFR (Non-African American) 99.8
[2020-05-12 08:47] LABS: Albumin Globulin Ratio 0.8 (0.9-2); Bilirubin,Total 0.5 mg/dl (0.2-1); Globulin 3.6 gm/dl (2.5-4.0); Total Protein 6.6 gm/dl (6.4-8.2)
[2020-05-12] MEDS: CEROVITE ADV FORMULA TAB PO SCH (08:58)
[2020-05-12] MEDS: DOCUSATE SODIUM 100 MG CAP PO SCH ×2 (08:58→22:46)
[2020-05-12] MEDS: dexAMETHasone 4 MG TAB PO SCH (08:58)
[2020-05-12] MEDS: SENNA 8.6 MG TAB PO SCH ×2 (08:58→22:46)
[2020-05-12] MEDS: ASPIRIN 81 MG ECTAB PO SCH (08:58)
[2020-05-12] MEDS: oxyCODONE HCL 15 MG TABCR (OxyCONTIN) PO SCH ×2 (08:58→22:46)
[2020-05-12] MEDS: AMIODARONE 200 MG TAB PO SCH (08:58)
[2020-05-12] MEDS: PANTOprazole 40 MG TAB PO SCH (08:58)
[2020-05-12] MEDS: FUROSEMIDE 20 MG TAB PO SCH (08:58)
--- NOTE | 2020-05-12 10:32 | Palliative Care Progress Note ---
Date of Service May 12, 2020 Assessment & Plan (1) Palliative care encounter: Patient pain better controlled than yesterday. Fentanyl patch has been discontinued.He has utilized 4 doses of PRN breakthrough Oxycodone. At this time, in speaking with Kya from case management, the patient would have to be dsicharged to home for 24 hours before proceeding with respite at [facility]. Unfortunately, the family has just closed on their house and will be in a hotel, so he can not go home. Case management working on discussing different options with [facility]. Confirmed comfort as main goal with son yesterday. (2) Lower back pain: Fentanyl patch was discontinued yesterday. I feel comfortable with his current pain medication regimen today. Decadron was increased from 2 mg to 4 mg, which may help. (3) Pelvic pain: as above. Monitor for constipation (4) Cachexia: Cancer related. Comfort feeding encouraged. (5) Altered mental status: Monitor with removal of fentanyl patch. While his confusion may be medication related, it is likely multifactorial. Son has confirmed that comfort would come before clarity in trade off. (6) Prostate cancer metastatic to bone: (7) Paranoia: Patient has Seroquel 25mg QHS. Would like to add Zyprexa 2.5 mg PO Q8 PRN for agitation and D/C IV Ativan. He did receive one dose yesterday. Monitor QTC, but overarching goal is comfort and benefits outweigh risk if patient having restlessness and agitation. Admission and Anticipated Discharge Date Admission Date: May 08, 2020 Review of Systems Review of Systems: Unobtainable due to cognitive status Results & Data ([facility]) Vital Signs (Past 12 Hours) Vital Signs Temp Pulse Resp BP Pulse Ox 05/12/20 08:00 36.7 C 97 H 16 151/87 H 91 05/12/20 07:52 36.7 C 97 H 16 151/87 H 91 05/12/20 01:56 37.4 C 99 H 20 138/82 94 05/12/20 01:54 85 L PG Care Time/CCT Total # of Minutes Spent Total Time Spent with Patient: Total time spent is greater than 50% in coordination of care (as documented) at patient's floor/unit and/or counseling patient: 35 Coding Level of Care Code 69821 Subseq Hosp Care Lvl 3 Diagnoses Palliative care encounter Z51.5 Lower back pain M54.5 Back pain laterality: left Chronicity: acute Sciatica presence: without sciatica Pelvic pain R10.2 Cachexia R64 Altered mental status R41.82 Prostate cancer metastatic to bone C61; C79.51 Paranoia F22 Time Spent (min) 35 Time Spent Midlevel Total time spent 35 minutes with > 50% of that time spent assessing the patient and collaborating with the IDT (1) Lower back pain Back pain laterality: left Chronicity: acute Sciatica presence: without sciatica Qualified Code(s): M54.5 - Low back pain
[2020-05-12] MEDS: metFORMIN HCL 500 MG TAB PO SCH (16:04)
--- NOTE | 2020-05-12 19:43 | Hospitalist Progress Note ---
Date of Service May 12, 2020 Assessment & Plan (1) Prostate cancer metastatic to bone: Intermittent Confusion vs possible paranoia -69yo M with PMH of metastatic prostate cancer to bone (H/o prostatectomy, most oncological treatment outside of [facility]. Completed palliative radiation therapy from December 2019 to Jan 2020. not any any cancer therapy. Has had multiple hospitalizations related to side effects from narcotic pain medication, such as changes in mental status, as discharged from a hospital stay in March 2020 on home hospice -patient's son [phone] and his son reports that patient has been generally doing okay during the day times but at night times at home, but patient's mental status would decline the pain medications and become belligerent and make statements such as accusing his family members that they are trying to poison him and "running around the house." -already on Mirtazapine 15 mg qhs for depression -admitting physician had requested psychiatry assessment for the patient. The diagnosis of paranoia is based on verbal reporting from patient's family - the patient does not exhibit acute paranoia in the hospital to date. 05/09/2020: hospitalist agree with psychiatry consult however that mood stabilizing medications may help patient's home behaviors at night when he is outpatient. his son Laith agrees for changes to increase Mirtazapine from 15 mg qHS to 30 mg qHS. In addition he allows for adding Seroquel 25 mg qHS after dinner times. patient's qtc is not prolonged and black box warnings in regards to Seroquel also was discussed with patient's family -05/10/2020: patient evaluated by palliative care and based on their assessment and recommendations continue Remeron and Seroquel for behavioral disturbances. discontinued the IV pain medications as goal for this patient to transition to [facility] care and they can not administer IV medications. stopped gabapentin continue the oxycontin 30 mg BID increased the prn oxycodone frequency to 5 mg every 4 hours as needed for pain started prn sublingual ativan for agitation unclear as to the benefits of continuing Fentanyl patch but will keep this on until further pain assessements -05/11/2020: Patient is in less pain and distress from pain compared to yesterday's exam. However, he is confused and fixated on his oral care compared to other issues and review of systems that hospitalist had wished to try to discuss. continue follow with palliative care recommendations and case management -05/12/20 CT head on admission showed no acute intracranial abnormality. Ativan discontinued Mental status improves but continue to have intermittent confusion Continue Seroquel and Zyprexa added Continue monitor closely (2) Cancer related pain: -patient is on a scheduled oxycodone 30 mg BID, he also gets prn oxycodone 5 mg q8 hours as needed, also on Fentanyl patches -also on dexamethasone 2 mg daily -in the past he had adjustments to pain medications made by [facility] but titration efforts have not formalized optimal dosing - and it may be that there is no correct optimal doses in a patient who has cancer pain who is likely to experience confusion while on narcotic pain medications -continue bowel regimen of senna and colace, prn Miralax to ensure bowel movements (3) Cachexia: Severe malnutrition -Cachectic in setting of metastatic cancer -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 -On amiodarone secondary to history of ST elevation myocardial infarction in 1999 - Continue amiodarone and aspirin. History of chronic systolic congestive heart failure -echo in February 2020 with EF was 50-55% which is normal -He is on Lasix 20 mg every other day, which we will continue. Deep venous thrombosis prophylaxis: sequential compression devices CODE Status DNR/DNI as per previous hospitalist team Disposition Waiting for placement Admission and Anticipated Discharge Date Admission Date: May 08, 2020 Subjective Pt was seen and examined Lying in bed with no distress Confused but was able to comment on politic and the president Pt is tolerated as long as he does not move Denies any chest pain, palpitation, dizziness and SOB Physical Exam Physical Exam: General- frail Head- atraumatic Eyes- PERRL, EOMI, ENT- oropharynx clear Neck- supple, no JVD Lungs- clear to auscultation Heart- regular rhythm; no murmur Abdomen- normal bowel sounds, soft, nontender Extremities- no calf tenderness Neuro- alert, oriented x 3; PERRL, EOMI; no facial palsy; no dysarthria Skin- warm & dry Results & Data Results & Data ([facility]) Vital Signs (Past 12 Hours) Vital Signs Temp Pulse Resp BP Pulse Ox 05/12/20 08:00 36.7 C 97 H 16 151/87 H 91 05/12/20 07:52 36.7 C 97 H 16 151/87 H 91
[2020-05-12] MEDS ORDERED: OLANZAPINE 2.5 MG TAB PO PRN (21:55)
[2020-05-12] MEDS: MIRTAZAPINE TAB 15 MG TAB PO SCH (22:46)
[2020-05-12] MEDS: QUEtiapine FUMARATE 25 MG TABLET PO SCH (22:47)
[2020-05-13] MEDS: PANTOprazole 40 MG TAB PO SCH (09:18)
[2020-05-13] MEDS: AMIODARONE 200 MG TAB PO SCH (09:18)
[2020-05-13] MEDS: CEROVITE ADV FORMULA TAB PO SCH (09:18)
[2020-05-13] MEDS: oxyCODONE HCL 15 MG TABCR (OxyCONTIN) PO SCH ×2 (09:18→22:12)
[2020-05-13] MEDS: ASPIRIN 81 MG ECTAB PO SCH (09:18)
[2020-05-13] MEDS: DOCUSATE SODIUM 100 MG CAP PO SCH ×2 (09:18→22:12)
[2020-05-13] MEDS: SENNA 8.6 MG TAB PO SCH ×2 (09:18→22:12)
[2020-05-13] MEDS: dexAMETHasone 4 MG TAB PO SCH (09:18)
--- NOTE | 2020-05-13 12:55 | Palliative Care Progress Note ---
Date of Service May 13, 2020 Assessment & Plan (1) Palliative care encounter: Patients pain continues to be more controlled. He has utilized TWO doses of Oxycodone for breakthrough. Patient has utilized ONE dose of Zyprexa over the past 24 hours. Confirmed comfort as main goal with son yesterday. Plan for patient to be discharged tomorrow, SundayMay 14 with [facility]. (2) Lower back pain: Fentanyl patch was discontinued yesterday. I feel comfortable with his current pain medication regimen today. Decadron was increased from 2 mg to 4 mg, which may help. (3) Pelvic pain: as above. Monitor for constipation (4) Cachexia: Cancer related. Comfort feeding encouraged. (5) Altered mental status: Monitor with removal of fentanyl patch. While his confusion may be medication related, it is likely multifactorial. Son has confirmed that comfort would come before clarity in trade off. (6) Prostate cancer metastatic to bone: (7) Paranoia: Patient has Seroquel 25mg QHS. Would like to add Zyprexa 2.5 mg PO Q8 PRN for agitation and D/C IV Ativan. He did receive one dose yesterday. Monitor QTC, but overarching goal is comfort and benefits outweigh risk if patient having restlessness and agitation. Patient has utilized ONE dose of Zyprexa over the past 24 hours. Admission and Anticipated Discharge Date Admission Date: May 08, 2020 Subjective Patient was evaluated today. He was having confused conversations with himself. Pt in no apparent distress See A/P for further details Review of Systems Review of Systems: [place] Symptom Assessment Scale Pain 1/3 Dyspnea 0/3 Nausea 0/3 Anxiety 0/3 Depression 0/3 Drowsiness 0/3 Anorexia 3/3 Palliative Performance Score 40% Neurologic: + confusion Physical Exam Constitutional: + acute distress, + ill appearing, + thin, + cachectic, + frail appearing and + malnourished Neck: trachea midline, no thyromegaly Respiratory: normal respiratory effort; no respiratory distress Auscultation: + diminished lung sounds Gastrointestinal (Abdomen): normal bowel sounds, soft, nontender, no hepatosplenomegaly Percussion/Palpation: + abdomen tender Skin: no rashes, warm and dry + skin atrophy and + ecchymosis Psychiatric: Orientation: alert and oriented to person Insight: + impaired insight Judgement: + impaired judgement Results & Data ([facility]) Vital Signs (Past 12 Hours) Vital Signs Temp Pulse Resp BP Pulse Ox 05/13/20 08:11 36.7 C 95 H 16 146/90 H 91 PG Care Time/CCT Total # of Minutes Spent Total Time Spent with Patient: Total time spent is greater than 50% in coordina tion of care (as documented) at patient's floor/unit and/or counseling patient: 35 Coding Level of Care Code 67779 Subseq Hosp Care Lvl 3 Diagnoses Palliative care encounter Z51.5 Lower back pain M54.5 Back pain laterality: left Chronicity: acute Sciatica presence: without sciatica Pelvic pain R10.2 Cachexia R64 Altered mental status R41.82 Prostate cancer metastatic to bone C61; C79.51 Paranoia F22 Time Spent (min) 35 Time Spent Midlevel Total time spent 35 minutes with > 50% of that time spent assessing the patient, discussing plan of care and providing symptom management, while collaborating with IDT (1) Lower back pain Back pain laterality: left Chronicity: acute Sciatica presence: without sciatica Qualified Code(s): M54.5 - Low back pain
[2020-05-13] MEDS: metFORMIN HCL 500 MG TAB PO SCH (17:30)
--- NOTE | 2020-05-13 20:29 | Hospitalist Progress Note ---
Date of Service May 13, 2020 Assessment & Plan (1) Prostate cancer metastatic to bone: Intermittent Confusion vs possible paranoia -69yo M with PMH of metastatic prostate cancer to bone (H/o prostatectomy, most oncological treatment outside of [facility]. Completed palliative radiation therapy from December 2019 to Jan 2020. not any any cancer therapy. Has had multiple hospitalizations related to side effects from narcotic pain medication, such as changes in mental status, as discharged from a hospital stay in March 2020 on home hospice -patient's son [phone] and his son reports that patient has been generally doing okay during the day times but at night times at home, but patient's mental status would decline the pain medications and become belligerent and make statements such as accusing his family members that they are trying to poison him and "running around the house." -already on Mirtazapine 15 mg qhs for depression -admitting physician had requested psychiatry assessment for the patient. The diagnosis of paranoia is based on verbal reporting from patient's family - the patient does not exhibit acute paranoia in the hospital to date. 05/09/2020: hospitalist agree with psychiatry consult however that mood stabilizing medications may help patient's home behaviors at night when he is outpatient. his son Laith agrees for changes to increase Mirtazapine from 15 mg qHS to 30 mg qHS. In addition he allows for adding Seroquel 25 mg qHS after dinner times. patient's qtc is not prolonged and black box warnings in regards to Seroquel also was discussed with patient's family -05/10/2020: patient evaluated by palliative care and based on their assessment and recommendations continue Remeron and Seroquel for behavioral disturbances. discontinued the IV pain medications as goal for this patient to transition to [facility] care and they can not administer IV medications. stopped gabapentin continue the oxycontin 30 mg BID increased the prn oxycodone frequency to 5 mg every 4 hours as needed for pain started prn sublingual ativan for agitation unclear as to the benefits of continuing Fentanyl patch but will keep this on until further pain assessements -05/11/2020: Patient is in less pain and distress from pain compared to yesterday's exam. However, he is confused and fixated on his oral care compared to other issues and review of systems that hospitalist had wished to try to discuss. continue follow with palliative care recommendations and case management -05/12/20 CT head on admission showed no acute intracranial abnormality. Ativan discontinued Mental status improves but continue to have intermittent confusion Continue Seroquel and Zyprexa added Continue monitor closely 05/13/20 No change in Metal status compare to yesterday No aggressive behavior Continue Seroquel and Zyprexa (2) Cancer related pain: -patient is on a scheduled oxycodone 30 mg BID, he also gets prn oxycodone 5 mg q8 hours as needed, also on Fentanyl patches -also on dexamethasone 2 mg daily -in the past he had adjustments to pain medications made by [facility] but titration efforts have not formalized optimal dosing - and it may be that there is no correct optimal doses in a patient who has cancer pain who is likely to experience confusion while on narcotic pain medications -continue bowel regimen of senna and colace, prn Miralax to ensure bowel movements (3) Cachexia: Severe malnutrition -Cachectic in setting of metastatic cancer -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 -On amiodarone secondary to history of ST elevation myocardial infarction in 1999 - Continue amiodarone and aspirin. History of chronic systolic congestive heart failure -echo in February 2020 with EF was 50-55% which is normal -He is on Lasix 20 mg every other day, which we will continue. Deep venous thrombosis prophylaxis: sequential compression devices CODE Status DNR/DNI as per previous hospitalist team Disposition Plan to discharge home on hospice Admission and Anticipated Discharge Date Admission Date: May 08, 2020 Subjective Pt was seen and examined Lying in bed with no distress Confused but calm and follow commands Nurse said that she did not want to take his meds today Denies any chest pain, palpitation, dizziness and SOB Physical Exam Physical Exam: General- frail Head- atraumatic Eyes- PERRL, EOMI, ENT- oropharynx clear Neck- supple, no JVD Lungs- clear to auscultation Heart- regular rhythm; no murmur Abdomen- normal bowel sounds, soft, nontender Extremities- no calf tenderness Neuro- alert, oriented x 3; PERRL, EOMI; no facial palsy; no dysarthria Skin- warm & dry Results & Data Results & Data ([facility]) Vital Signs (Past 12 Hours) Vital Signs Temp Pulse Resp BP Pulse Ox 05/13/20 15:33 36.6 C 90 16 149/83 H 90
[2020-05-13] MEDS: MIRTAZAPINE TAB 15 MG TAB PO SCH (22:12)
[2020-05-13] MEDS: QUEtiapine FUMARATE 25 MG TABLET PO SCH (22:13)
[2020-05-14] MEDS: oxyCODONE HCL IR 5 MG TAB (IMMEDIATE RELEASE) PO PRN ×3 (00:09→14:13)
[2020-05-14] MEDS: oxyCODONE HCL 15 MG TABCR (OxyCONTIN) PO SCH (07:59)
[2020-05-14] MEDS: DOCUSATE SODIUM 100 MG CAP PO SCH (08:00)
[2020-05-14] MEDS: dexAMETHasone 4 MG TAB PO SCH (08:00)
[2020-05-14] MEDS: SENNA 8.6 MG TAB PO SCH (08:01)
[2020-05-14] MEDS: PANTOprazole 40 MG TAB PO SCH (08:01)
[2020-05-14] MEDS: FUROSEMIDE 20 MG TAB PO SCH (08:01)
[2020-05-14] MEDS: ASPIRIN 81 MG ECTAB PO SCH (08:01)
[2020-05-14] MEDS: CEROVITE ADV FORMULA TAB PO SCH (08:01)
[2020-05-14] MEDS: AMIODARONE 200 MG TAB PO SCH (08:59)
--- NOTE | 2020-05-14 14:53 | Discharge Summary ---
Date of Service May 14, 2020 Admission HPI Per Admitting Provider CHIEF COMPLAINT: Pelvic pain, history of metastatic prostate cancer, paranoia. HISTORY OF PRESENT ILLNESS: A 69-year-old male with past medical history significant for type 2 diabetes, hyperlipidemia, protein-calorie malnutrition, history of prostate cancer status post prostatectomy and palliative radiation treatment, history of systolic congestive heart failure, history of coronary artery disease. The patient is currently on home hospice on fentanyl and on pain medications. As per the son, the patient is not taking pain medication because he is getting paranoid that he and his mother is trying to poison him and he is not also eating any food because he thinks there is the poison in the food. As per son he has been paranoid for some time but last few days it has become worse. As per son he takes the pain medication in the morning but after 6:00 p.m. he gets agitated and does not want to take anything and gets paranoid and he is talking to his brother in [place] to come and get him, he sometimes says he is going to call the bunghole borer. Son says that they are not able to take care of him at home, so brought him to the hospital. Also last 2 days he is not eating much because of his paranoia. No cough, no fever, no chills, somewhat constipated, but no nausea, no vomiting or any other complaints. The patient in the ER is hemodynamically stable, alert and oriented to name. Thinks that he is in a drug store, could not tell the dates, obeys simple commands. The patient keeps on talking about the pain medications, but seems comfortable. Denies any chest pain. Denies shortness of breath. Denies headaches. Denies nausea, denies abdominal pain, says he is ambulating to the bathroom okay, but keeps on going back to his pain medications. Admission Exam Per Admitting Provider GENERAL: The patient is alert and awake, not in acute distress. VITAL SIGNS: Temperature 36.4, pulse 85, respiratory rate 18, blood pressure 132/82, oxygen 100% on room air. HEENT: No pallor, no icterus. Pupils equal, round, reactive to light. Oral mucosa moist. NECK: No neck masses. Supple. CARDIOVASCULAR: S1, S2 heard, regular rate and rhythm, no murmur, no gallop. RESPIRATORY SYSTEM: Normal AP diameter. No accessory muscle use. No wheezing, no crackles. ABDOMEN: Soft, bowel sounds present, nontender. No distention. CENTRAL NERVOUS SYSTEM: Alert and oriented to name only, can able to tell his date of , obeys simple commands. Moves extremities. EXTREMITIES: No edema, no erythema. 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 Cachexia Severe malnutrition Type 2 diabetes mellitus History of chronic systolic congestive heart failure Discharge Exam General- frail Head- atraumatic Eyes- PERRL, EOMI, ENT- oropharynx clear Neck- supple, no JVD Lungs- clear to auscultation Heart- regular rhythm; no murmur Abdomen- normal bowel sounds, soft, nontender Extremities- no calf tenderness Neuro- alert, oriented x 3; PERRL, EOMI; no facial palsy; no dysarthria Skin- warm & dry Discharge Data Allergies Allergy/AdvReac Type Severity Reaction Status Date / Time Penicillins Allergy Mild Rash Verified 05/08/20 20:40 Consultations 05/08/20 19:09 ED Decision to Admit Stat 05/08/20 22:54 Consult Case Management - Discharge Planning Routine 05/09/20 08:00 Consult Psychiatry Routine 05/10/20 12:47 Consult Palliative Care Routine Ordered Studies 05/08/20 17:47 CT head/brain wo con Stat 05/08/20 17:49 CT lumbar spine wo con Stat LUMBAR SPINE CT CT DOSE: 1269.17 mGy.cm HISTORY: Severe back pain. TECHNIQUE: Multiaxial CT images of the lumbar spine were performed and reformatted in the sagittal and coronal plane without the use of contrast. A dose lowering technique was utilized adhering to the principles of ALARA. COMPARISON: Lumbar spine CT 02/08/2020. FINDINGS: There is extensive osteoblastic metastatic disease seen throughout the lumbar spine and sacrum which has progressed. No acute fractures identified. Destructive changes seen within T12, L1, and the bilateral T12 ribs has progressed. Right-sided sacral neural foraminal narrowing is again noted due to the expansile metastases. This is also not significant change. Progressive destructive lesion at L4 is noted. No subluxation. Disc spaces remain preserved. Evaluation the central canal is suboptimal due to the CT technique. However, no significant central canal narrowing identified. IMPRESSION: 1. Extensive osteoblastic metastatic disease which has progressed. 2. No definite acute fractures. 3. Progressive destructive changes within the lower thoracic and lumbar spine. 4. No change in the right-sided sacral neural foraminal narrowing due to the expansile metastases. ACT 112: Negative or not required by law. Electronically signed by: Kieran Mercado M.D. 05/08/2020 7:01 PM Dictated: 05/08/201855Transcribed: 05/08/201855 HEAD CT NONCONTRAST CT DOSE: HISTORY: paranoia eval for mass/mets TECHNIQUE: Multiaxial CT images of the head were performed without the use of intravenous contrast. Automated exposure control was utilized for this study. A dose lowering technique was utilized adhering to the principles of ALARA. Comparison: None. Findings: A few opacified right inferior mastoid air cells. The paranasal sinuses and left mastoid air cells are clear. Osteoblastic metastatic disease most pronounced at the skull base. There is no mass, hematoma, midline shift, acute infarct. White matter hypodensity is nonspecific but suggestive of microvascular ischemic change. The ventricles and sulci demonstrate mild age- related involutional changes. Impression: No acute intracranial abnormality. Osteoblastic metastatic disease identified at the skull base. ACT 112: Negative or not required by law. Electronically signed by: Kieran Mecrado M.D. 05/08/2020 7:06 PM Dictated: 05/08/201900Transcribed: 05/08/201900 XR chest 1V portable HISTORY: Weakness. Evaluate for pneumonia. COMPARISON: Chest 04/05/2020. FINDINGS: Scattered osteoblastic metastatic disease is again noted. No pneumothorax. No pleural effusions. The heart is normal in size. No new focal lung consolidations to suggest pneumonia. No evidence for pulmonary edema. IMPRESSION: No significant change compared to the prior study. No acute process. Osteoblastic metastatic disease is again noted. ACT 112: Negative or not required by law. Electronically signed by: Kieran Mercado M.D. 05/08/2020 6:49 PM Dictated: 05/08/201847Transcribed: 05/08/201847 Hospital Course (1) Prostate cancer metastatic to bone: Intermittent Confusion vs possible paranoia -69yo M with PMH of metastatic prostate cancer to bone (H/o prostatectomy, most oncological treatment outside of [facility]. Completed palliative radiation therapy from December 2019 to Jan 2020. not any any cancer therapy. Has had multiple hospitalizations related to side effects from narcotic pain medication, such as changes in mental status, as discharged from a hospital stay in March 2020 on home hospice -patient's son [phone] and his son reports that patient has been generally doing okay during the day times but at night times at home, but patient's mental status would decline the pain medications and become belligerent and make statements such as accusing his family members that they are trying to poison him and "running around the house." -already on Mirtazapine 15 mg qhs for depression -admitting physician had requested psychiatry assessment for the patient. The diagnosis of paranoia is based on verbal reporting from patient's family - the patient does not exhibit acute paranoia in the hospital to date. 05/09/2020: hospitalist agree with psychiatry consult however that mood stab ilizing medications may help patient's home behaviors at night when he is outpatient. his son Laith agrees for changes to increase Mirtazapine from 15 mg qHS to 30 mg qHS. In addition he allows for adding Seroquel 25 mg qHS after dinner times. patient's qtc is not prolonged and black box warnings in regards to Seroquel also was discussed with patient's family -05/10/2020: patient evaluated by palliative care and based on their assessment and recommendations continue Remeron and Seroquel for behavioral disturbances. discontinued the IV pain medications as goal for this patient to transition to [facility] care and they can not administer IV medications. stopped gabapentin continue the oxycontin 30 mg BID increased the prn oxycodone frequency to 5 mg every 4 hours as needed for pain started prn sublingual ativan for agitation unclear as to the benefits of continuing Fentanyl patch but will keep this on until further pain assessements -05/11/2020: Patient is in less pain and distress from pain compared to yesterday's exam. However, he is confused and fixated on his oral care compared to other issues and review of systems that hospitalist had wished to try to discuss. continue follow with palliative care recommendations and case management -05/12/20 CT head on admission showed no acute intracranial abnormality. Ativan discontinued Mental status improves but continue to have intermittent confusion Continue Seroquel and Zyprexa added Continue monitor closely 05/13/20 No change in Metal status compare to yesterday No aggressive behavior Continue Seroquel and Zyprexa (2) Cancer related pain: -patient is on a scheduled oxycodone 30 mg BID, he also gets prn oxycodone 5 mg q8 hours as needed, also on Fentanyl patches -also on dexamethasone 2 mg daily -in the past he had adjustments to pain medications made by [facility] but titration efforts have not formalized optimal dosing - and it may be that there is no correct optimal doses in a patient who has cancer pain who is likely to experience confusion while on narcotic pain medications -continue bowel regimen of senna and colace, prn Miralax to ensure bowel movements (3) Cachexia: Severe malnutrition -Cachectic in setting of metastatic cancer -teletype mechanic consult while in the 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 -On amiodarone secondary to history of ST elevation myocardial infarction in 1999 - Continue amiodarone and aspirin. History of chronic systolic congestive heart failure -echo in February 2020 with EF was 50-55% which is normal -He is on Lasix 20 mg every other day, which we will continue. 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 Medications and DC Order Prescriptions: New olanzapine 2.5 mg Tablet 2.5 mg PO Q8H PRN (Reason: agitation on hospice) Qty: 30 RF: 0 quetiapine 25 mg Tablet 25 mg PO HS Qty: 30 RF: 0 Complete Nutritional Drink 0.04-1.05 gram-kcal/mL liquid 1 ea PO BID 30 Days Qty: 60 RF: 0 Continued Lupron Depot (3 month) 22.5 mg syringe kit 22.5 mg IM .[id number] RF: 0 Narcan 4 mg/actuation spray,non-aerosol 1 spray intranasal Q2M PRN (Reason: opioid overdose) Qty: 2 RF: 0 metformin 500 mg tablet See Rx Instructions .ROUTE .COMPLEX RF: 0 amiodarone 200 mg tablet 200 mg PO QAM RF: 0 aspirin 81 mg Tablet,Delayed Release (Dr/Ec) 81 mg PO QAM RF: 0 mirtazapine 15 mg tablet 15 mg PO HS RF: 0 prochlorperazine maleate 10 mg tablet 10 mg PO Q6H PRN (Reason: Nausea And Vomiting) RF: 0 [id number]-[id number] Tablet 1 tab PO QAM RF: 0 furosemide 20 mg tablet 20 mg PO Q2D RF: 0 sennosides [Senna Lax] 8.6 mg tablet 8.6 mg PO QAM RF: 0 acetaminophen [Tylenol] 325 mg Tablet 650 mg PO Q6H PRN (Reason: Pain) RF: 0 polyethylene glycol 3350 [Miralax] 17 gram powder in packet 17 g PO DAILY PRN (Reason: Constipation) RF: 0 psyllium Packet 1 packet PO UD RF: 0 docusate sodium [Colace] 100 mg capsule 100 mg PO BID RF: 0 oxycodone [Roxicodone] 5 mg tablet 5 mg PO Q8H PRN (Reason: Pain) RF: 0 oxycodone [OxyContin] 30 mg tablet,oral only,ext.rel.12 hr 30 mg PO BID RF: 0 omeprazole 20 mg capsule,delayed release(DR/EC) 20 mg PO QAM RF: 0 Changed dexamethasone 4 mg tablet 4 mg PO DAILY Qty: 30 RF: 0 Discontinued gabapentin 100 mg capsule 100 mg PO TID RF: 0 fentanyl [Duragesic] 100 mcg/hr patch 72 hour 100 mcg transdermal Q3D PRN (Reason: Pain) RF: 0 Discharge Orders: Discharge Order (Routine); Ordered 05/14/20 Ordered By: Riki Nichols Admission Data Admit Date/Time: 05/08/20 21:19 Attending Provider: Riki Nichols Admit Provider: Eliud Choi Primary Care Provider: Roseanne Morris Other Providers: Eliud Choi ; Dodie Patino ; Mila Joseph [facility] [place] ; Toya Servin Other Interventions: Discharge Summary Assessment (RN) Last Done: 05/14/20 12:52
== END 2020-05-14 16:34 | disposition hospice, home (50) | DRG 885 ==
LOC: ED 17:25 → 3N 21:19 → SUATTDRO 21:19 → 3N 22:28